=== PATIENT | male | born 1985 | race Caucasian/White ===

== ENCOUNTER 2020-09-21 13:53 | Emergency (ER) | payer MEDICAID, SELFPAY ==
[2020-09-21 14:17] VITALS: BP 132/66; PULSE 72; RESP 18; TEMP 36.7; O2SAT 99; BMI 21.4
[2020-09-21 14:58] LABS: Amphetamine Screen Urine Not Detected (Not Detect); Barbiturates, Urine Not Detected (Not Detect); Benzodiazepines Screen Urine Not Detected (Not Detect); Cannabinoid Screen Urine Not Detected (Not Detect); Cocaine Screen Urine Not Detected (Not Detect); Opiate Screen Urine Not Detected (Not Detect); Phencyclidine Screen Urine Not Detected (Not Detect)
[2020-09-21 15:21] VITALS: BP 155/78; PULSE 67; RESP 14; TEMP 36.4
--- NOTE | 2020-09-21 15:48 | PC.NURSE ---
PT IS CALM AND COOPERATIVE
--- NOTE | 2020-09-21 16:05 | ED_ITS ---
HPI - Psych General Chief Complaint: Psychiatric Symptoms Stated Complaint: CRISIS Time Seen by Provider: 09/21/20 16:04 Source: EMS Mode of arrival: EMS Limitations: no limitations History of Present Illness HPI Narrative: 35-year-old male with history of chronic schizophrenia presenting via EMS from the [facility] with complaint of agitation. Per EMS patient was yelling /hyperverbal security called and patient was brought into the emergency room. Patient otherwise express no suicidal/homicidal ideation. No drug use today. States he just became upset. He offers no other medical complaints. Onset (ago): minute(s) Duration: constant History of same: Yes Relieving factors: none Exacerbating factors: none Associated psychiatric symptoms: none Associated symptoms: denies other symptoms Treatments prior to arrival: none Related Data Allergies Allergy/AdvReac Type Severity Reaction Status Date / Time No Known Allergies Allergy Verified 09/21/20 14:16 [No Known Allergies*] Review of Systems Review of Systems: Constitutional: No Weight loss, No Fever, No Chills, No Night Sweats, No Fatigue, No Malaise ENT/Mouth: No Hearing loss, No Ear Pain, No Nasal Congestion, No Sinus Pain, No Hoarseness, No sore throat, No Rhinorrhea, No Swallowing Difficulty Eyes: No Eye Pain, No Swelling, No Redness, No Foreign Body, No Discharge, No Vision Changes Cardiovascular: No Chest Pain, No SOB, No Dyspnea Respiratory: No Cough, No Sputum, No Wheezing, No Smoke Exposure, No Dyspnea Gastrointestinal: No Nausea, No Vomiting, No Diarrhea, No Constipation, No abdominal Pain, No Hematochezia, No Melena Genitourinary: no irregular bleeding, No Dysuria, No Urinary Frequency, No Hematuria, No Urinary Incontinence, No Urgency, No Flank Pain, No Urinary Flow Changes, No Hesitancy Musculoskeletal: No joint pain, No Myalgias, No Joint Swelling Skin: No Skin Lesions, No rash Neuro: No Weakness, No Numbness, No Paresthesias, No Loss of Consciousness, No Dizziness, No Headache Psych: No Anxiety/Panic, No Depression, No SI/HI/AH/VH, No Social Issues Heme/Lymph: No Bruising, No Bleeding,No Lymphadenopathy Endocrine: No Polyuria, No Polydipsia, No Temperature Intolerance PMFSH Past Medical History Attestation statement: The following information was validated with the patient. Medical History Autism Schizo affective schizophrenia Social History Social History Advance Directives: No Advance Directives Information Provided: No Physical Exam Vital Signs: Vital Signs: Vital Signs Temp Pulse Resp BP Pulse Ox 09/21/20 15:21 97.6 F 67 14 155/78 H 09/21/20 14:17 98.0 F 72 18 132/66 99 Body Mass Index 21.4 Reviewed Const: General: cooperative and healthy appearing; No acute distress or intoxicated appearing Nutritional Appearance: average body habitus Orientation/consciousness: patient oriented x3 HENMT: Head: Yes normal to inspection Ears: hearing grossly normal bilaterally Eyes: General: appearance normal, both eyes and all related structures Visual Pryor: normal visual pryor by confrontation Neck: Neck: Yes normal visual inspection and No tender Thyroid: Thyroid normal Chest: Chest palpation & inspection: normal inspection of the chest Resp: Effort & Inspection: normal respiratory effort Cardio: Jugular venous distension: no JVD Skin: General skin exam: no rashes or lesions noted Neuro: General: patient oriented x3 Extrem: General: Yes normal to inspection Course Course Course Narrative: has been calm cooperative here. No SI or HI. No drug use. Does not appear toxic / under influence. Initially reported in triage may have not been taking medication he tells me that he does. He does not want to speak to anyone in relation to psych. States he feels fine he has had a [place] moment at the mall. He is very forthcoming and good historian. He does have history of similar presentation in the past. At this time I have no concerns/indication to keep him here against his will. He was to be discharged he will be discharged home with his family. Stable for discharge. MDM - Psych Restraints Face to Face Assessment: Face to Face Assessment: Current Situation: After assessment of the patient, a review of the pertinent medical record and a discussion with nursing staff, I feel the patient requires a restrain intervention. Reaction To: [] Medical Condition: [] Behavioral State: [] Continued Need: [] Lab Data Labs: Lab Results 09/21/20 Range/Units 14:28 Urine Opiates Screen Not Detected (Not Detect) Ur Barbiturates Screen Not Detected (Not Detect) Ur Phencyclidine Scrn Not Detected (Not Detect) Ur Amphetamines Screen Not Detected (Not Detect) U Benzodiazepines Scrn Not Detected (Not Detect) Urine Cocaine Screen Not Detected (Not Detect) U Marijuana (THC) Screen Not Detected (Not Detect) Discharge Plan Discharge Clinical Impression: Chronic schizophrenia, Acute anxiety Patient Disposition: Home, Self-Care Instructions: Anxiety (ED), Psychotic Disorder (ED) Additional Instructions: please follow-up with her outpatient provider as discussed Return if any concerns or worsening symptoms Thank you Referrals: Physician,Unknown [Primary Care Provider] - 2 days
== END 2020-09-21 16:32 | disposition home or self-care (01) ==
PROVIDERS: Emergency Provider Emergency Medicine
DX: F20.9 Schizophrenia, unspecified (principal); F41.1 Generalized anxiety disorder; F43.0 Acute stress reaction; F84.0 Autistic disorder; Z79.899 Other long term (current) drug therapy
CPT/HCPCS: 80307; 99284

== ENCOUNTER 2021-03-08 17:19 | Emergency (ER) | payer MEDICAID, SELFPAY ==
[2021-03-08] VITALS (8 sets, daily range): BP systolic 94–141; BP diastolic 49–80; PULSE 64–95; RESP 16–24; O2SAT 95–97; BMI 22.7
--- NOTE | 2021-03-08 19:45 | MHC.RECOVSUP ---
? Reason for consult drug abuse o Current location: ED17H o Identified substance use concern: - Overdose ? Additional information: Patient to impair could not get a straight answer.
[2021-03-08] MEDS: Haloperidol Lactate 5 MG/ML VIAL IM (19:55)
[2021-03-08] MEDS: LORazepam 2 MG/ML VIAL IM (19:56)
--- NOTE | 2021-03-08 21:46 | ED.GENADULT ---
HPI - General Adult General Chief complaint: ETOH/Substance Use Stated complaint: ETOH,SUBSTANCE ABUSE,HALLUCINATIONS Time Seen by Provider: 03/08/21 19:47 Source: patient Mode of arrival: ambulatory Limitations: no limitations History of Present Illness HPI narrative: Patient brought to ED for evaluation due to substance abuse. Patient admitted to taking methamphetamine, fentanyl, heroin, and some alcohol. Patient does not want detox. Patient denies being suicidal homicidal. Patient states he has hyper because he took all those drugs. Patient also admits taking LSD. Related Data Allergies Allergy/AdvReac Type Severity Reaction Status Date / Time No Known Allergies Allergy Verified 09/21/20 14:16 [No Known Allergies*] Review of Systems Review of Systems: Yes all other systems are reviewed and are negative Constitutional: Constitutional: Reports as per HPI and Reports no additional constitutional complaints Eyes: Eyes: Reports as per HPI and Reports no additional eye complaints ENT: Reports system reviewed and no additional complaints, except as documented and Reports as per HPI Cardiovascular: Cardiovascular: Reports as per HPI and Reports no additional cardiovascular complaints Respiratory: Respiratory: Reports as per HPI and Reports no additional respiratory complaints Gastrointestinal: Gastrointestinal: Reports as per HPI and Reports no additional gastrointestinal complaints Genitourinary: Genitourinary: Reports no additional male genitourinary complaints and Reports as per HPI Musculoskeletal: Musculoskeletal: Reports no additional musculoskeletal complaints and Reports as per HPI Integumentary/Breasts: Skin/Breast: Reports system reviewed and no additional complaints, except as docu and Reports as per HPI Neurologic: Reports system reviewed and no additional complaints, except as documented and Reports as per HPI Psychiatric: Psychiatric: Reports no additional psychiatric complaints and Reports as per HPI [facility] Past Medical History Medical History Autism Schizo affective schizophrenia Social History Social History Advance Directives: No Advance Directives Information Provided: Yes Physical Exam Vital Signs: Vital Signs: Last Vital Signs Pulse 56 03/09/21 01:03 Resp 16 03/09/21 01:03 BP 110/74 03/09/21 01:03 Pulse Ox 97 03/09/21 01:03 Body Mass Index 22.7 Const: General: cooperative, healthy appearing, comfortable, no acute distress, well developed, alert, awake and intoxicated appearing Orientation/consciousness: patient oriented x3 HENMT: Head: Yes normal to inspection, Yes No palpable skull fracture present, Yes normocephalic, Yes atraumatic, No Parson's sign, No contusion, No cranial bruits, No hematoma, No laceration, No occipital foramen tenderness, No palpable skull fracture, No raccoon eyes, No scalp lesion, No scalp tenderness, No Temporal artery tenderness present and No periorbital ecchymosis Eyes: General: appearance normal, both eyes and all related structures Neck: Neck: Yes normal visual inspection, Yes full ROM, Yes no lymphadenopathy, Yes no meningeal signs, Yes trachea midline, Yes supple and No tender Chest: Chest palpation & inspection: normal inspection of the chest and normal palpation of entire chest wall Resp: Effort & Inspection: normal respiratory effort and able to speak in complete sentences Auscultation: clear to auscultation bilaterally Cardio: Jugular venous distension: no JVD Heart sounds: S1 normal heart sound present and S2 normal heart sound present GI: Inspection: Yes normal to inspection and No abdominal wall ecchymosis Palpation (GI): Soft to palpation, not firm, nontender, no guarding and not rigid : General: No CVA tenderness and Yes no CVA tenderness Back/Spine/Pelvis: Back: no CVA tenderness, No CVA tenderness and No back tenderness Skin: General skin exam: no rashes or lesions noted and elasticity normal Neuro: General: patient oriented x3 and no meningeal signs Cranial nerves: Yes CN's II-XII intact bilaterally Extrem: General: Yes normal to inspection and Yes full ROM Psych: Appearance: grossly normal, well kempt and not disheveled Course Course Course Narrative: Patient does not want detox. Patient making loud random statements. Reevaluation(s) Reevaluation #1: Patient became disruptive, aggresive, and stating want to be discharged. Patient still on the influence of drugs. Patient given Ativan/Haldol as medical restraints to prevent him from hurting others and himself. Patient due to substance abuse. Patient does not need psych evaluation presently. Will re-evaluate patient Reevaluation #2: Patient now alert oriented x3. Patient ready for discharge. Patient does not want detox. Patient is not suicidal or homicidal. Medical Decision Making MDM Narrative Medical decision making narrative: poly substance abuse Discharge Plan Discharge Clinical Impression: Active substance abuse Patient Disposition: Home, Self-Care Instructions: Polysubstance Abuse (ED) Additional Instructions: Return to ED for any chest pain, shortness of breath, coughing up blood, fever, chills, suicidal/homicidal ideation, auditory/visual hallucinations, or any other concerning symptoms. Please follow-up with the PCP Print Language: Urdu
--- NOTE | 2021-03-08 21:55 | PC.NURSE ---
pt has been resting quietly asleep. skin pink warm and dry no s/s of resp distress.
[2021-03-09] VITALS: RESP 16; O2SAT 97
[2021-03-09 01:03] VITALS: BP 110/74; PULSE 56; RESP 16; O2SAT 97
--- NOTE | 2021-03-09 01:04 | PC.NURSE ---
pt sleepy not ready for discharge at this time. pt is starting to wake slowly. skin pink warm and dry. no s/s of resp distress.
[2021-03-09 02:00] VITALS: RESP 16; O2SAT 97
== END 2021-03-09 03:13 | disposition home or self-care (01) ==
PROVIDERS: Emergency Provider Emergency Medicine; PCP Physician Assistant
DX: F11.10 Opioid abuse, uncomplicated (principal); F15.10 Other stimulant abuse, uncomplicated; F16.10 Hallucinogen abuse, uncomplicated; F10.10 Alcohol abuse, uncomplicated; Y90.9 Presence of alcohol in blood, level not specified; R45.6 Violent behavior
CPT/HCPCS: 96372; 99284; 99285; J2060

== ENCOUNTER 2021-04-14 14:34 | Emergency (ER) | payer MEDICAID, SELFPAY ==
[2021-04-14 15:01] VITALS: BP 93/53; PULSE 75; RESP 20; TEMP 5445.5; TEMP 9834; O2SAT 98; BMI 22.9
--- NOTE | 2021-04-14 15:10 | PC.NURSE ---
Patient changed into hospital attire by security and belongings confiscated and locked up per protocol- pt 1:1 sitter
--- NOTE | 2021-04-14 15:16 | ECG_ITS ---
Test Reason : OVERDOSE Blood Pressure : / mmHG Vent. Rate : 073 BPM Atrial Rate : 073 BPM P-R Int : 164 ms QRS Dur : 106 ms QT Int : 358 ms P-R-T Axes : 063 -22 047 degrees QTc Int : 394 ms Normal sinus rhythm Normal ECG No previous ECGs available Referred By: Mabel Hopkins Electronically Signed By:PARKER LANDAVERDE MD
[2021-04-14 15:39] LABS: MANUAL DIFF FLAG NO
[2021-04-14 15:42] LABS: Basophils Percent Auto 0.3 % (0-2); Eosinophils Absolute Auto 0.1 X10*3/uL (0.0-0.4); Eosinophils Percent Auto 0.6 % (0-4); Hematocrit 45.1 % (42-52); Hemoglobin 15.1 g/dl (14.0-18.0); Imm Gran Abs Auto 0.04 X10*3/uL (0.00-0.03); Imm Gran Pct Auto 0.3 % (0.0-0.4); Lymphocytes Absolute Auto 1.8 X10*3/uL (1.2-4.9); Lymphocytes Percent Auto 15.5 % (20-40); Mean Corpuscular HGB Conc 33.5 g/dl (31.0-36.0); Mean Corpuscular Hemoglobin 32.1 pg (27.0-33.0); Mean Corpuscular Volume 95.8 fL (80-98); Mean Platelet Volume 9.7 fL (9.4-12.4); Monocytes Absolute Auto 0.9 X10*3/uL (0.1-1.2); Monocytes Percent Auto 7.2 % (2-11); Neutrophils Absolute Auto 8.9 X10*3/uL (2.0-8.3); Neutrophils Percent Auto 76.1 % (45-73); Platelet Count 224 X10*3/uL (160-400); Red Blood Count 4.71 X10*6/uL (4.60-5.80); Red Cell Distribution Width 11.9 % (11.0-16.0); White Blood Count 11.7 X10*3/uL (4.8-10.8)
[2021-04-14 15:45] LABS: INTERNATIONAL NORM RATIO 1.2 (0.9-1.1); Prothrombin Time 13.8 SEC (10.8-13.0)
--- NOTE | 2021-04-14 16:00 | ED.OVERDOSE ---
HPI - Overdose General Chief Complaint: Overdose Stated Complaint: JITTERY FROM [place] PER EMS Time Seen by Provider: 04/14/21 14:53 Source: patient and EMS Mode of arrival: EMS Limitations: no limitations History of Present Illness HPI Narrative: 35-year-old male with a past medical history of autism and schizoaffective schizophrenia presenting to the ED via EMS after taking meth/heroin/fentanyl and marijuana reports that it made him feel very jittery and he was doing a lot of irrational stuff therefore he came here for further evaluation and treatment. Patient denies any SI/HI/auditory visualizations thoughts of self-injury. He is interested in detox. Reports he is currently homeless at this time. Related Data Allergies Allergy/AdvReac Type Severity Reaction Status Date / Time No Known Allergies Allergy Verified 09/21/20 14:16 [No Known Allergies*] Review of Systems Review of Systems: Constitutional : No Fever, No Chills ENT/Mouth : No Ear Pain, No Nasal Congestion, No sore throat Eyes: No Eye Pain, No Swelling, No Redness Cardiovascular : No Chest Pain, No SOB Respiratory : No Cough, No Sputum, No Dyspnea Gastrointestinal : No ingestions, No Nausea, No Vomiting, No Diarrhea, No Hematochezia, No Melena Genitourinary : No Dysuria, No Urinary Frequency, No Hematuria Musculoskeletal : No Myalgias Skin : No Skin Lesions, No rash Neuro : No Weakness, No Numbness, No Paresthesias, No Dizziness, No Headache Psych : Positive substance abuse requesting detox, No Anxiety, No Depression, No SI/HI, No AVH, No thoughts of self injury Heme/Lymph: No Lymphadenopathy Endocrine : No Polyuria, No Polydipsia Yes all other systems are reviewed and are negative [facility] Past Medical History Attestation statement: The following information was validated with the patient. Medical History Autism Schizo affective schizophrenia Social History Social History Alcohol intake: unknown Smoking Status: Never smoker Use of substances other than those prescribed or required for medical reasons: Yes Substance Use Type: Heroin, Inhalants, Marijuana and Opiates Substance Use Frequency: Chronic Longstanding Last Used Substance: Just Prior to Admission Advance Directives: No Advance Directives Information Provided: Yes Physical Exam Vital Signs: Vital Signs: Last Vital Signs Temp 9834 F H 04/14/21 15:01 Pulse 75 04/14/21 15: Resp 20 04/14/21 15:01 BP 93/53 L 04/14/21 15:01 Pulse Ox 98 04/14/21 15:01 Body Mass Index 22.9 vital signs have been reviewed as normal and appeared to be correct. Blood pressure normal. Heart rate normal. Respiration rate normal. Temperature normal. Oxygen saturation normal. Appearance: Alert. Oriented X3. No acute distress. Head: Normal external exam. Normocephalic. Atraumatic. No Parson signs noted. No raccoon eyes noted Eyes: PERRLA. EOMI. Conjunctiva and sclera normal. Eyelids normal. ENT: EAC normal. TM's Normal. Pharynx normal. Uvula midline. Moist mucous membranes. No trismus noted. No drooling noted. No muffled voice noted. Neck: Normal inspection. Neck supple. FROM. No adenopathy. Thyroid Normal. No meningeal signs. No neck mass noted. CVS: Normal heart rate and rhythm. Heart sound normal. No murmurs noted. Pulses normal throughout. Respiratory: No respiratory distress. Painless inspiration. Breath sounds normal. No wheezes/rales/rhonchi noted. Chest nontender. No accessory muscle usage noted or decreased air movement noted. Abdomen: Soft and nontender. Bowel sounds normal in all 4 quadrants. No distention noted. No organomegaly noted. No visible injury noted. Back: No CVA tenderness. Full range of motion noted. Skin: Skin warm and dry. Normal skin color. Normal skin turgor. No rashes/lesions/lacerations noted. Extremities: No lower extremity edema. Extremities exhibit normal range of motion. Extremities nontender. Neuro: Oriented X 3. No motor deficit. No sensory deficit. Reflexes normal. Psych: Appearance grossly normal, disheveled, mental status normal, speech and movement normal, speech clear, patient appears very sad and anxious along with depressed. Is cooperative. Normal thought process. Normal thought content. Normal good insight. Judgment good. Course Course Course Narrative: 5pm - 35-year-old male with a past medical history of autism and schizoaffective schizophrenia presenting to the ED via EMS after taking meth/heroin/fentanyl and marijuana reports that it made him feel very jittery and he was doing a lot of irrational stuff therefore he came here for further evaluation and treatment. Patient denies any SI/HI/auditory visualizations thoughts of self-injury. He is interested in detox. Reports he is currently homeless at this time. - labs obtained and patient when elevated white blood cell count 63177. BUN 23. Otherwise all other labs are within normal limits. UA within normal limits no evidence of UTI. Patient positive for cocaine negative for all other drugs. - therefore physician observation was started at this time. Jagjit is working on rehab/detox with the patient he is agreeable. Will continue to monitor until then. MDM - Overdose Medical Records Attestation: I reviewed the patient's medical records. Lab Data Attestation: I reviewed the patient's lab results. Result diagrams: 04/14/21 15:33 04/14/21 15:33 Labs: Lab Results 04/14/21 04/14/21 04/14/21 Range/Units 15:32 15:33 15:33 WBC 11.7 H (4.8-10.8) X10*3/uL RBC 4.71 (4.60-5.80) X10*6/uL Hgb 15.1 (14.0-18.0) g/dl Hct 45.1 (42-52) % MCV 95.8 (80-98) fL MCH 32.1 (27.0-33.0) pg MCHC 33.5 (31.0-36.0) g/dl RDW 11.9 (11.0-16.0) % Plt Count 224 (160-400) X10*3/uL MPV 9.7 (9.4-12.4) fL Immature Gran % (Auto) 0.3 (0.0-0.4) % Neut % (Auto) 76.1 H (45-73) % Lymph % (Auto) 15.5 L (20-40) % [place] % (Auto) 7.2 (2-11) % Eos % (Auto) 0.6 (0-4) % Baso % (Auto) 0.3 (0-2) % Lymph # (Auto) 1.8 (1.2-4.9) X10*3/uL [place] # (Auto) 0.9 (0.1-1.2) X10*3/uL Eos # (Auto) 0.1 (0.0-0.4) X10*3/uL Baso # (Auto) 0.0 (0.0-0.2) X10*3/uL Abs Immat Gran (auto) 0.04 H (0.00-0.03) X10*3/uL Absolute Neuts (auto) 8.9 H (2.0-8.3) X10*3/uL Absolute Nucleated RBC 0.000 (0.0-0.012) X10*3/uL Nucleated RBC % (auto) 0.0 (0.0-0.2) /100WBC PT 13.8 H (10.8-13.0) SEC INR 1.2 H (0.9-1.1) Sodium (135-145) mmol/L Potassium (3.3-5.1) mmol/L Chloride (96-108) mmol/L Carbon Dioxide (22-29) mmol/L Anion Gap (12-20) BUN (9-16) mg/dL Creatinine (0.5-1.4) mg/dL Estim Creat Clear Calc Estimated GFR Random Glucose (60-115) mg/dL Calcium (8.4-10.2) mg/dL Magnesium 2.0 (1.6-2.6) mg/dL Total Bilirubin (0.0-1.0) mg/dL AST (5-37) U/L ALT (0-40) U/L Alkaline Phosphatase (39-117) U/L Total Protein (6.5-8.0) g/dL Albumin (3.5-5.0) g/dL Urine Color Urine Appearance Urine pH (5.0-8.0) Ur Specific [place] (1.005-1.025) Urine Protein (NEG-TRACE) MG/DL Urine Glucose (UA) (NEG) MG/DL Urine Ketones (NEG) MG/DL Urine Blood (NEG) Urine Nitrite (NEG) Ur Leukocyte Esterase (NEG) Urine Opiates Screen (Not Detect) Ur Barbiturates Screen (Not Detect) Ur Phencyclidine Scrn (Not Detect) Ur Amphetamines Screen (Not Detect) U Benzodiazepines Scrn (Not Detect) Urine Cocaine Screen (Not Detect) U Marijuana (THC) Screen (Not Detect) 04/14/21 04/14/21 04/14/21 Range/Units 15:33 16:03 16:03 WBC (4.8-10.8) X10*3/uL RBC (4.60-5.80) X10*6/uL Hgb (14.0-18.0) g/dl Hct (42-52) % MCV (80-98) fL MCH (27.0-33.0) pg MCHC (31.0-36.0) g/dl RDW (11.0-16.0) % Plt Count (160-400) X10*3/uL MPV (9.4-12.4) fL Immature Gran % (Auto) (0.0-0.4) % Neut % (Auto) (45-73) % Lymph % (Auto) (20-40) % [place] % (Auto) (2-11) % Eos % (Auto) (0-4) % Baso % (Auto) (0-2) % Lymph # (Auto) (1.2-4.9) X10*3/uL [place] # (Auto) (0.1-1.2) X10*3/uL Eos # (Auto) (0.0-0.4) X10*3/uL Baso # (Auto) (0.0-0.2) X10*3/uL Abs Immat Gran (auto) (0.00-0.03) X10*3/uL Absolute Neuts (auto) (2.0-8.3) X10*3/uL Absolute Nucleated RBC (0.0-0.012) X10*3/uL Nucleated RBC % (auto) (0.0-0.2) /100WBC PT (10.8-13.0) SEC INR (0.9-1.1) Sodium 141 (135-145) mmol/L Potassium 4.0 (3.3-5.1) mmol/L Chloride 108 (96-108) mmol/L Carbon Dioxide 27 (22-29) mmol/L Anion Gap 10 L (12-20) BUN 23 H (9-16) mg/dL Creatinine 0.98 (0.5-1.4) mg/dL Estim Creat Clear Calc 107.9 Estimated GFR > 60 Random Glucose 99 (60-115) mg/dL Calcium 9.3 (8.4-10.2) mg/dL Magnesium (1.6-2.6) mg/dL Total Bilirubin 0.5 (0.0-1.0) mg/dL AST 17 (5-37) U/L ALT 13 (0-40) U/L Alkaline Phosphatase 45 (39-117) U/L Total Protein 6.8 (6.5-8.0) g/dL Albumin 4.3 (3.5-5.0) g/dL Urine Color YELLOW Urine Appearance CLEAR Urine pH 6.0 (5.0-8.0) Ur Specific [place] >= 1.030 H (1.005-1.025) Urine Protein NEG (NEG-TRACE) MG/DL Urine Glucose (UA) NEG (NEG) MG/DL Urine Ketones NEG (NEG) MG/DL Urine Blood NEG (NEG) Urine Nitrite NEG (NEG) Ur Leukocyte Esterase NEG (NEG) Urine Opiates Screen Not Detected (Not Detect) Ur Barbiturates Screen Not Detected (Not Detect) Ur Phencyclidine Scrn Not Detected (Not Detect) Ur Amphetamines Screen Not Detected (Not Detect) U Benzodiazepines Scrn Not Detected (Not Detect) Urine Cocaine Screen POSITIVE H (Not Detect) U Marijuana (THC) Screen Not Detected (Not Detect) ECG Data Attestation: I personally reviewed and interpreted this ECG as follows: ECG interpretation date: 04/14/21 ECG interpretation time: 15:42 Interpretation: Normal sinus rhythm with ventricular rate of 73 with a normal SC interval normal QRS duration normal QT/QTC interval. No acute ischemic changes are noted. Discharge Plan Discharge Clinical Impression: Substance abuse
[2021-04-14 16:10] LABS: Alanine Aminotransferase 13 U/L (0-40); Albumin Level 4.3 g/dL (3.5-5.0); Alkaline Phosphatase 45 U/L (39-117); Anion Gap 10 (12-20); Aspartate Amino Transferase 17 U/L (5-37); Bilirubin Total 0.5 mg/dL (0.0-1.0); Blood Urea Nitrogen 23 mg/dL (9-16); Calcium 9.3 mg/dL (8.4-10.2); Carbon Dioxide 27 mmol/L (22-29); Chloride 108 mmol/L (96-108); Creatinine Clr Calc Pharmacy 107.9; Estimated Glomerular Filt Rate > 60; Glucose Random 99 mg/dL (60-115); Sodium 141 mmol/L (135-145); Total Protein 6.8 g/dL (6.5-8.0)
[2021-04-14 16:14] LABS: Glucose Urine UA NEG (NEG); Leukocyte Esterase Urine NEG (NEG); Nitrite Urine NEG (NEG); Specific Gravity - Urine >= 1.030 (1.005-1.025); Urine Blood NEG (NEG); Urine Ketones NEG (NEG); Urine Protein NEG (NEG-TRACE)
[2021-04-14 16:15] LABS: Appearance Urine CLEAR; Color Urine YELLOW
--- NOTE | 2021-04-14 16:36 | MHC.RECOVSUP ---
Recovery Support note: Patient is a 35 year old Chadian speaking male who presented to [facility] ED via EMS after using substances. Patient presented as under the influence and it was difficult to engage with patient at times. Patient reports using fentanyl and meth. Patient expressed a desire to stop using substances, stating that he is interested in going to detox for treatment. Patient is willing to go anywhere as long as the hospital can assist with transportation. Patient will be referred to ATS facilities.
[2021-04-14 16:44] LABS: Amphetamine Screen Urine Not Detected (Not Detect); Barbiturates, Urine Not Detected (Not Detect); Benzodiazepines Screen Urine Not Detected (Not Detect); Cannabinoid Screen Urine Not Detected (Not Detect); Cocaine Screen Urine POSITIVE (Not Detect); Opiate Screen Urine Not Detected (Not Detect); Phencyclidine Screen Urine Not Detected (Not Detect)
[2021-04-14 17:14] LABS: Ethanol < 10 mg/dL
[2021-04-14 17:25] LABS: Influenza A PCR NEGATIVE (Negative); Influenza B PCR NEGATIVE (Negative); Resp Syncy Virus RNA Qual PCR NEGATIVE (Negative); SARS COV2 PCR INHOUSE NEGATIVE (Negative)
--- NOTE | 2021-04-14 17:39 | PC.NURSE ---
REcvotyrell reading coach at bedside
--- NOTE | 2021-04-14 18:51 | MHC.RECOVSUP ---
I followed up with [facility] and was told to call at 7am.. I spoke with said patient and explain what [facility] had advised me.. Patient decided that he would like to leave...I spoke with doctor in charge and related patient request.
== END 2021-04-14 19:36 | disposition home or self-care (01) ==
PROVIDERS: Physician Assistant Medical; Emergency Provider Emergency Medicine Emergency Medical Services; PCP Physician Assistant
DX: F19.10 Other psychoactive substance abuse, uncomplicated (principal); F11.10 Opioid abuse, uncomplicated; Z20.822 Contact with and (suspected) exposure to COVID-19; F20.9 Schizophrenia, unspecified; F84.0 Autistic disorder
CPT/HCPCS: 0241U; 36415; 80053; 80307; 80320; 81003; 83735; 85025; 85610; 93005; 99284; 99285

== ENCOUNTER 2021-06-14 01:15 | Emergency (ER) | payer MEDICAID, SELFPAY ==
[2021-06-14 01:25] VITALS: BP 136/78; PULSE 73; RESP 18; TEMP 36.9; O2SAT 99; BMI 20.8
--- NOTE | 2021-06-14 01:43 | ED_ITS ---
HPI - Psych General Chief Complaint: Psychiatric Symptoms Stated Complaint: si Time Seen by Provider: 06/14/21 01:41 Source: patient Mode of arrival: EMS History of Present Illness HPI Narrative: 35-year-old male with history of schizoaffect kia/schizophrenia/autism brought in by EMS after he states that he was [place] [address] and called the police department for help stating that he was hungry and at that time reported being suicidal with a plan to run into traffic and get killed. Upon initiating conversation with the patient he asks if he should provide me with ?the code?. He then proceeds to tell me ?888?. Patient then states that sometimes he gets hungry and eats dirt and feels that since soiled gives rise to everything that it is good for him. At this time patient denies feeling suicidal, hearing voices. Related Data Home Medications Medication Instructions Recorded Confirmed divalproex 4 tab PO BEDTIME 06/14/21 06/14/21 folic acid 1 tab PO DAILY 06/14/21 06/14/21 [id number]-calcium-mins 1 tab PO DAILY 06/14/21 06/14/21 [Thera-M] olanzapine 1 tab PO BEDTIME 06/14/21 06/14/21 thiamine HCl (vitamin B1) 1 tab PO DAILY 06/14/21 06/14/21 Allergies Allergy/AdvReac Type Severity Reaction Status Date / Time No Known Allergies Allergy Verified 09/21/20 14:16 [No Known Allergies*] Review of Systems Review of Systems: Pertinent positives and negatives as stated in HPI 10 point review of systems is otherwise negative. [facility] Past Medical History Source: nursing notes reviewed Medical History Autism Schizo affective schizophrenia Social History Social History Alcohol intake: unknown Substance Use Type: Heroin, Inhalants, Marijuana and Opiates Advance Directives: No Advance Directives Information Provided: No Physical Exam 2 Vital Signs: Vital Signs: Last Vital Signs Temp 98.4 F 06/14/21 01:25 Pulse 73 06/14/21 01:25 Resp 18 06/14/21 01:25 BP 136/78 06/14/21 01:25 Pulse Ox 99 07/20/21 01:25 Body Mass Index 20.8 VITAL SIGNS: Reviewed. GENERAL: Well developed, well nourished, in no acute distress. HEAD: Normocephalic/atraumatic EYES: PERRLA, EOMI OROPHARYNX: no oral lesions noted, posterior pharynx clear LUNGS: Normal breath sounds. No adventitious sounds or accessory muscle use. SpO2<99> CARDIOVASCULAR: Regular rate and rhythm without noted murmurs ABDOMEN: Soft, non-tender, non-distended with bowel sounds. SKIN: Inspection of the skin reveals no rashes NEUROLOGIC: Alert and oriented x 4. PSYCH: Normal affect, mild delusion regarding soil Course Course Course Narrative: This is a 35-year-old male with history and clinical presentation consistent with mild psychosis regarding soil and ?codes? but does not appear to be suicidal at this time. Will obtain behavioral evaluation. Signed out to Dr. Singleton [facility] - Psych Lab Data Labs: Lab Results 06/14/21 06/14/21 Range/Units 01:47 04:48 Urine Opiates Screen Not Detected (Not Detect) Ur Barbiturates Screen Not Detected (Not Detect) Ur Phencyclidine Scrn Not Detected (Not Detect) Ur Amphetamines Screen Not Detected (Not Detect) U Benzodiazepines Scrn Not Detected (Not Detect) Urine Cocaine Screen POSITIVE H (Not Detect) U Marijuana (THC) Screen Not Detected (Not Detect) COVID-19 (PAMELLA) Negative (Negative) COVID-19 Clin Com See Note Discharge Plan Discharge Clinical Impression: Schizo affective schizophrenia, Autism Instructions: Schizophrenia (ED), Schizoaffective Disorder (ED), Autism Spectrum Disorder (DC) Additional Instructions: Return to the ER for acute worsening of symptoms and continue to take your medications as prescribed. Prescriptions: No Action thiamine HCl (vitamin B1) 100 mg tablet 1 tab PO DAILY RF: 0 divalproex 500 mg tablet extended release 24 hr 4 tab PO BEDTIME RF: 0 folic acid 1 mg tablet 1 tab PO DAILY RF: 0 olanzapine 15 mg tablet 1 tab PO BEDTIME RF: 0 Thera-M 9 mg iron-400 mcg tablet 1 tab PO DAILY RF: 0 Referrals: Bhargav Cervantes PA [Primary Care Provider] - 2 days
[2021-06-14 02:41] LABS: COVID-19 Test Negative (Negative); IDNOW Serial# 9DD0AD1C
[2021-06-14 05:17] LABS: Amphetamine Screen Urine Not Detected (Not Detect); Barbiturates, Urine Not Detected (Not Detect); Benzodiazepines Screen Urine Not Detected (Not Detect); Cannabinoid Screen Urine Not Detected (Not Detect); Cocaine Screen Urine POSITIVE (Not Detect); Opiate Screen Urine Not Detected (Not Detect); Phencyclidine Screen Urine Not Detected (Not Detect)
--- NOTE | 2021-06-14 06:18 | PC.NURSE ---
Patient slept briefly, delusional reporting eating soil and sand, ate well, VSS, Utox positive for cocaine, [facility] referral completed via smart-sheet, [place] overnight N coffee shop manager called/confirmed receipt of referral, patient will be seen in the morning, patient is currently off his medication, denied SI/HI/AVH, will continue to monitor.
[2021-06-14 08:14] VITALS: BP 124/60; PULSE 69; RESP 17; TEMP 36.8; O2SAT 98
--- NOTE | 2021-06-14 10:27 | PC.NURSE ---
pt ambulating in common space, calm,cooperative. makes needs known. watching tv. in behavioral control at this time.
--- NOTE | 2021-06-14 10:33 | MHC.CARE ---
Pt presented with flat mood and affect. Pt was shaking back and forth. This writer technical publications met with pt who denied SI, HI, AH/VH. Pt reported he made a mistake and decided to walk to [place] last night. Reported he ran out of food and called 911 with a phone he found on the floor and needed fluids and rest. Pt reported he was feeling great but coming down from sativa. Pt reported he has not taken meds because they don't help. However, reported he was on a wait list to see a psychiatrist. Pt was positive for cocaine and at first was unclear and guarded about his substance use. When redirected, pt reported that he drank water with cocaine in it from a person he met on the street. pt was unclear about substance use but reported difficulty with substances at times. [phone] (paren't phone number)- This writer technical publications than spoke with parents who reported chronic mental health struggles and reported that they felt safe to take him home. They expressed frustration with pt's chronic inpatient hospitalizations and treatment. Reported that they are working on getting set up with services through [facility]. Discussed plan with discharging pt and parents reported that they would be coming to pick him up.
== END 2021-06-14 11:23 | disposition home or self-care (01) ==
PROVIDERS: Student in an Organized Health Care Education/Training Program; Emergency Provider Emergency Medicine; PCP Physician Assistant
DX: F25.9 Schizoaffective disorder, unspecified (principal); F84.0 Autistic disorder; Z79.899 Other long term (current) drug therapy; Z20.822 Contact with and (suspected) exposure to COVID-19
CPT/HCPCS: 36415; 80307; 87635; 99284

== ENCOUNTER 2023-12-07 10:48 | Outpatient (REF) | payer OTHER, SELFPAY ==
--- NOTE | ~2023-12-07 | XR_ITS ---
Examination: Pre-MRI evaluation. CLINICAL INDICATION: Pre-MRI evaluation. Poor historian. COMPARISON: None. TECHNIQUE: Standard skull 2 views. Chest one view and abdomen one view. FINDINGS: Skull: AP and lateral views of skull reveals no visible radiopaque foreign body in the orbits or the skull. The calvarium is unremarkable. The paranasal sinuses are well-aerated and clear. No scalp soft tissue abnormality seen. CHEST: The lungs are well-expanded and clear acute process. Heart size and pulmonary vascularity is normal. No radiopaque foreign body seen. No gross bony abnormality. ABDOMEN: A single view of the abdomen reveals multiple simple small to large radiopaque metallic bodies in the right lower quadrant likely in the terminal ileum or ileocecal junction. The bowel gas pattern is nonspecific.. There is scattered stool in the left colon. There are surgical marce in the pelvis. No organomegaly. No gross bony abnormality. XR/XR pre mri screening IMPRESSION: Multiple small to large radiopaque metallic foreign body seen in the right lower quadrant of the abdomen likely in the ileocecal junction or terminal ileum. Mild constipation. No radiopaque foreign body seen in the skull or the chest. The lungs are clear. The paranasal sinuses are well-aerated and clear.
== END 2023-12-07 10:49 | disposition home or self-care (01) ==
LOC: HO.MRI 10:48
PROVIDERS: Visit Provider Psychiatry & Neurology Psychiatry
DX: Z13.89 Encounter for screening for other disorder (principal)

== ENCOUNTER 2023-12-07 12:03 | Emergency (ER) | payer OTHER, SELFPAY ==
--- NOTE | ~2023-12-07 | CT_ITS ---
EXAMINATION: CT ABDOMEN AND PELVIS WITHOUT CONTRAST CLINICAL INFORMATION: Foreign body in abdomen on x-ray. COMPARISON: None available. TECHNIQUE: Multidetector volumetric exact location whether was performed from the superior aspect of the liver through the pubic symphysis. It lies This CT examination was performed using dose optimization techniques as appropriate, variously including the following: *Automated exposure control *Adjustment of mA and/or kV according to patient size (this includes techniques or standardized protocols for targeted exams where dose is matched to indication/reason for exam; i.e. extremities or head) *Use of iterative reconstruction technique DLP: 431 mGy-cm FINDINGS: LUNG BASES: The lung bases are clear. Heart size is normal. LIVER, GALLBLADDER, AND BILIARY TREE: The liver is normal in size, shape, and attenuation. No focal hepatic lesion or biliary ductal dilatation is present. The gallbladder is unremarkable with no evidence of radiopaque gallstones, gallbladder wall thickening, or obvious pericholecystic inflammatory changes. PANCREAS: Unremarkable. SPLEEN: Unremarkable. ADRENAL GLANDS: Unremarkable. KIDNEYS AND URETERS: The kidneys are normal in size, shape, and attenuation. No hydronephrosis, hydroureter, or calculi seen. No perinephric stranding. BLADDER: Unremarkable. GASTROINTESTINAL TRACT: There are multiple large radiopaque metallic foreign body seen in the right abdomen and appears these are at the IC junction or in the terminal ileum. Exact location is hard to find due to significant hardware artifact surrounding the metal. The small bowel loops are nondilated. There is a large amount of stool in the colon likely severe constipation. No free air or free fluid seen. ABDOMINAL WALL: No significant hernia is appreciated. LYMPH NODES: Normal. VASCULAR: Unremarkable. PELVIC VISCERA: Unremarkable. OSSEOUS STRUCTURES: Unremarkable. CT/CT abdomen pelvis wo IV con IMPRESSION: Multiple large radiopaque metallic foreign body seen in the right lower quadrant. Exact location is indeterminate due to significant artifact from the metal restricts location evaluation. There is moderate to significant constipation. Fleischner guidelines were followed.
--- NOTE | 2023-12-07 12:25 | ED.GENADULT ---
HPI - General Adult General Chief complaint: Recheck/Abnormal Lab/Rx Stated complaint: has metal in abd Time Seen by Provider: 12/07/23 16:57 Source: patient and other Mode of arrival: ambulatory History of Present Illness HPI narrative: This is a 38-year-old male who arrives after going for an MRI to assess for compatibility for ECT and is currently residing in a psychiatric facility. The MRI staff obtained x-rays to determine any metal and noted on the KUB that there was a metallic object in the patient stated that he had swallowed a computer processor. On further discussion with the staff who is at bedside they state that approximately 1 month ago they had to remove a plant from his room because he was eating the soil. Patient denies any nausea, vomiting, fever, chills, difficulty with defecation or urinary symptoms. Related Data Home Medications Medication Instructions Recorded Confirmed divalproex 500 mg tablet,extended 4 tab PO BEDTIME 06/14/21 06/14/21 release 24 hr folic acid 1 mg tablet 1 tab PO DAILY 06/14/21 06/14/21 multivitamin-iron 9 mg-folic acid 1 tab PO DAILY 06/14/21 06/14/21 400 mcg-calcium and minerals tablet (Thera-M) olanzapine 15 mg tablet 1 tab PO BEDTIME 06/14/21 06/14/21 thiamine HCl (vitamin B1) 100 mg 1 tab PO DAILY 06/14/21 06/14/21 tablet Allergies Allergy/AdvReac Type Severity Reaction Status Date / Time No Known Allergies Allergy Verified 09/21/20 14:16 [No Known Allergies*] Review of Systems Review of Systems: Pertinent positives and negatives as stated in the HPI [facility] Past Medical History Source: nursing notes reviewed Onset Date is defined in the Problem List Problems that require an onset date and time if occurred within 24 hrs of arrival to the ED Aortic Dissection and Rupture; Neurologic impairment; Cardiopulmonary Arrest; Endotracheal Intubation; Insertion or Replacement of Mechanical Circulatory Assist Device Medical History Autism Schizo affective schizophrenia Social History Social History Alcohol intake: unknown Patient Tobacco Use Status: Tobacco use Unknown Substance Use Type: Heroin, Inhalants, Marijuana and Opiates Advance Directives: No Advance Directives Information Provided: No Physical Exam ED Vital Signs: Vital Signs - 24 hr 12/07/23 12:26 12/07/23 18:56 Temperature 98 F 97.5 F Pulse Rate 87 74 Respiratory Rate 16 16 Blood Pressure 132/78 121/82 Pulse Oximetry 93 97 Oxygen Delivery Method Room Air Room Air BMI result Body Mass Index 23.2 VITAL SIGNS: Reviewed. GENERAL: Well developed, well nourished, in no acute distress. HEAD: Normocephalic/atraumatic EYES: PERRLA, EOMI EARS: Ext canals without abnormality NOSE: Nares patent bilateral OROPHARYNX: no oral lesions noted, posterior pharynx clear NECK: Supple, no adenopathy LUNGS: Normal breath sounds. No adventitious sounds or accessory muscle use. SpO2<> CARDIOVASCULAR: Regular rate and rhythm without noted murmurs ABDOMEN: Soft, non-tender, non-distended with bowel sounds. MUSCULOSKELETAL: No tenderness, deformities, or effusions noted on gross inspection. EXTREMITIES: No cyanosis, clubbing or edema. SKIN: Inspection of the skin reveals no rashes NEUROLOGIC: Alert and oriented x 4. Strength and sensation to light touch were grossly intact x 4, cranial nerves 2-12 are grossly intact. Course Course Course Narrative: This is an RME: Additional HPI, ROS, PE not included below will be deferred to primary provider. Patient is a 38-year-old male who presents to the emergency department staff, Patient from [facility]. Patient had presented to have initial MRI of the brain due to confusion and preoccupied thought process. During screening when asked if he has any metal in his body he reported to the radiology screening that he had swallowed computer processor 1 year ago. At this point in XR was obtained which did confirm a metal foreign body to the abdomen, is unclear when this ingestion may have occurred. Plan: labs, U/A, CT AP Medical Decision Making Medical Decision Making MDM Narrative: 38-year-old male with history and clinical presentation of suspected soil ingestion, he is otherwise completely asymptomatic. I reviewed all investigations and hematologic indices are negative for leukocytosis/left shift/anemia/thrombocytopenia. Chemistry indices do not demonstrate an MICK or electrolyte/liver enzyme derangements. Urinalysis is negative for UTI/hematuria. Viral testing is negative for COVID-19/influenza. CT scan demonstrates multiple large radio opaque metallic foreign body seen in the right lower quadrant. Patient has no pain on clinical exam in either he nor the staff worker at bedside report any symptomatic issues. 1719: I discussed case with General surgery, Dr. Pendleton, who recommends outpatient follow-up but unknown substance will likely pass. Patient is otherwise discharged in stable condition and provided with a referral to follow-up in the outpatient setting. Differential Diagnosis Differential Diagnoses: The differential diagnosis associated with the presentation includes Please see the discussion Admission/Observation Consideration of admission/observation: Escalation of care including admission/observation considered Please see the discussion above Consult Healthcare Provider Management of the patient was discussed with: Fryer Line Helper Please see the discussion of Lab Data MDM Lab Attestation statement: I reviewed the patient's lab results. Please see the discussion above 12/07/23 14:00 12/07/23 14:00 Labs: Lab Results 12/07/23 Range/Units 14:00 WBC 8.9 (4.8-10.8) X10*3/uL RBC 4.97 (4.60-5.80) X10*6/uL Hgb 15.2 (14.0-18.0) g/dl Hct 46.8 (42.0-52.0) % MCV 94.2 (80.0-98.0) fL MCH 30.6 (27.0-33.0) pg MCHC 32.5 (31.0-36.0) g/dl RDW 12.1 (11.0-16.0) % Plt Count 267 (160-400) X10*3/uL MPV 8.7 L (9.4-12.4) fL Immature Gran % (Auto) 0.2 (0.0-0.4) % Neut % (Auto) 66.6 (45-73) % Lymph % (Auto) 21.0 (20-40) % [place] % (Auto) 6.6 (2-11) % Eos % (Auto) 5.0 H (0-4) % Baso % (Auto) 0.6 (0-2) % Lymph # (Auto) 1.9 (1.2-4.9) X10*3/uL [place] # (Auto) 0.6 (0.1-1.2) X10*3/uL Eos # (Auto) 0.4 (0.0-0.4) X10*3/uL Baso # (Auto) 0.1 (0.0-0.2) X10*3/uL Abs Immat Gran (auto) 0.02 (0.00-0.03) X10*3/uL Absolute Neuts (auto) 5.9 (2.0-8.3) x10*3/uL Absolute Nucleated RBC 0.000 (0.0-0.012) X10*3/uL Nucleated RBC % (auto) 0.0 (0.0-0.2) /100WBC Sodium 141 (135-145) mmol/L Potassium 4.3 (3.3-5.1) mmol/L Chloride 106 (96-108) mmol/L Carbon Dioxide 30 H (22-29) mmol/L Anion Gap 9 L (12-20) BUN 12 (9-16) mg/dL Creatinine 0.99 (0.5-1.4) mg/dL Estim Creat Clear Calc 91.2 Estimated GFR > 60 Random Glucose 96 (60-115) mg/dL Calcium 9.3 (8.4-10.2) mg/dL Total Bilirubin 0.2 (0.0-1.0) mg/dL AST 13 (5-37) U/L ALT 15 (0-40) U/L Alkaline Phosphatase 61 (39-117) U/L Total Protein 7.1 (6.5-8.0) g/dL Albumin 4.2 (3.5-5.0) g/dL Lipase 9 (8-78) U/L Urine Color Yellow Urine Appearance Clear Urine pH 7.5 (5.0-9.0) Ur Specific [place] 1.010 (1.005-1.025) Urine Protein Negative (Neg-Trace) mg/dL Urine Glucose (UA) Negative (Negative) mg/dL Urine Ketones Negative (Negative) mg/dL Urine Blood Negative (Negative) Urine Nitrite Negative (Negative) Ur Leukocyte Esterase Negative (Negative) COVID-19 (PAMELLA) Negative (Negative) COVID-19 Clin Com See Note Influenza Type A (JONATHON) Negative (Negative) Influenza Type B (JONATHON) Negative (Negative) Influenza A & B Note See Note Radiology Impression Discussion of test interpretation with radiology: I have reviewed the radiologist's reading. Radiologist Impression: Please see the discussion above External Record Review External record reviewed: Outpatient record, Prior outpatient labs and Prior outpatient radiology Chronic Conditions Patient?s care impacted by: Other Autism, schizophrenia Critical Care Time Critical Care Time Critical Care Time: Yes Total Critical Care Time: 45 Attestation: I personally attest to this time spent taking care of the patient. Discharge Plan Discharge Clinical Impression: Intra-abdominal foreign body Patient Disposition: Xfer Other Instructions: Foreign Body Ingestion (ED) Additional Instructions: 1. Resume all home medications as prescribed. 2. Recommend follow-up with General surgery, a referral has been provided below for further outpatient management. Return to the ER for any acute worsening of symptoms. Prescriptions: No Action thiamine HCl (vitamin B1) 100 mg tablet 1 tab PO DAILY divalproex 500 mg tablet extended release 24 hr 4 tab PO BEDTIME folic acid 1 mg tablet 1 tab PO DAILY olanzapine 15 mg tablet 1 tab PO BEDTIME Thera-M 9 mg iron-400 mcg tablet 1 tab PO DAILY Referrals: Bhargav Cervantes PA [Primary Care Provider] - Scot Pendleton MD [Physician] -
[2023-12-07 12:26] VITALS: BP 132/78; PULSE 87; RESP 16; TEMP 36.6; O2SAT 93; BMI 23.2
[2023-12-07 14:06] LABS: MANUAL DIFF FLAG NO
[2023-12-07 14:09] LABS: Basophils Absolute Auto 0.1 X10*3/uL (0.0-0.2); Basophils Percent Auto 0.6 % (0-2); Eosinophils Absolute Auto 0.4 X10*3/uL (0.0-0.4); Hematocrit 46.8 % (42.0-52.0); Hemoglobin 15.2 g/dl (14.0-18.0); Imm Gran Abs Auto 0.02 X10*3/uL (0.00-0.03); Imm Gran Pct Auto 0.2 % (0.0-0.4); Lymphocytes Absolute Auto 1.9 X10*3/uL (1.2-4.9); Mean Corpuscular HGB Conc 32.5 g/dl (31.0-36.0); Mean Corpuscular Hemoglobin 30.6 pg (27.0-33.0); Mean Corpuscular Volume 94.2 fL (80.0-98.0); Mean Platelet Volume 8.7 fL (9.4-12.4); Monocytes Absolute Auto 0.6 X10*3/uL (0.1-1.2); Monocytes Percent Auto 6.6 % (2-11); Neutrophils Absolute Auto 5.9 x10*3/uL (2.0-8.3); Neutrophils Percent Auto 66.6 % (45-73); Platelet Count 267 X10*3/uL (160-400); Red Blood Count 4.97 X10*6/uL (4.60-5.80); Red Cell Distribution Width 12.1 % (11.0-16.0); White Blood Count 8.9 X10*3/uL (4.8-10.8)
[2023-12-07 14:12] LABS: Appearance Urine Clear; Color Urine Yellow; Glucose Urine UA Negative (Negative); Leukocyte Esterase Urine Negative (Negative); Nitrite Urine Negative (Negative); PH 7.5 (5.0-9.0); Urine Blood Negative (Negative); Urine Ketones Negative (Negative); Urine Protein Negative (Neg-Trace)
[2023-12-07 14:24] LABS: Alanine Aminotransferase 15 U/L (0-40); Albumin Level 4.2 g/dL (3.5-5.0); Alkaline Phosphatase 61 U/L (39-117); Anion Gap 9 (12-20); Aspartate Amino Transferase 13 U/L (5-37); Bilirubin Total 0.2 mg/dL (0.0-1.0); Blood Urea Nitrogen 12 mg/dL (9-16); Calcium 9.3 mg/dL (8.4-10.2); Carbon Dioxide 30 mmol/L (22-29); Chloride 106 mmol/L (96-108); Creatinine Clr Calc Pharmacy 91.2; Estimated Glomerular Filt Rate > 60; Glucose Random 96 mg/dL (60-115); Lipase 9 U/L (8-78); Potassium 4.3 mmol/L (3.3-5.1); Sodium 141 mmol/L (135-145); Total Protein 7.1 g/dL (6.5-8.0)
[2023-12-07 14:30] LABS: IDNOW Serial# 6674DD1D; Influenza A Negative (Negative); Influenza B2 Negative (Negative)
[2023-12-07 14:39] LABS: COVID-19 Test Negative (Negative); IDNOW Serial# 16C4AD1C
--- OUTSIDE RECORDS SUMMARY | 2023-12-07 17:00 | XMS_ITS | Continuity of Care Document ---
Author Name Unknown Organization [facility] Address [address] [place] [address]- Care Team Providers Care Credit Union Field Examiner Name Role Phone Bi Harry Primary Care Physician Encounter [facility] Date(s): 06/08/21 - 06/15/21 [facility] [address] [place] [address]- Encounter Diagnosis Autism spectrum(Discharge Diagnosis) - 06/08/21 Polysubstance abuse(Discharge Diagnosis) - 06/08/21 Schizoaffective disorder(Discharge Diagnosis) - 06/08/21 Bipolar disorder(Discharge Diagnosis) - 06/08/21 Attending Physician: Bi Harry Allergies, Adverse Reactions, Alerts Substance Reaction Severity Status clindamycin Active amoxicillin Active Immunizations Given and Recorded Vaccine Date Status Refusal Reason tetanus/diphtheria/pertussis, acel(Tdap) 1 01/06/19 Given Measles/Mumps/Rubella Virus Vaccine 08/19/86 Recor ded Not Given Vaccine Date Status Refusal Reason pneumococcal 23-valent vaccine 03/09/19 Not Given Patient Refuses influenza virus vaccine, inactivated 03/09/19 Not Given Patient Refuses 1Result Comment: [01/06/2019] [id number] Medications Aristada 882 mg/3.2 mL intramuscular suspension, extended release = 882 mg, Intramuscular, Every 28 days, Next dose due 05/02/21, # 1 each, 1 Refills, Maintenance, 04/11/21 8:05:00 EDT, [facility], Partial fill upon patient request if the prescription isfor a schedule II opioid drug., 170, cm, 04/10/21 2... Start Date: 04/11/21 Status: Ordered divalproex sodium 500 mg oral tablet, extended release 4 tablet = 2,000 mg, By Mouth, Daily at bedtime, # 120 tablet, 1 Refills, Maintenance, 04/11/21 8:00:00 EDT, ER Tablet, [facility], Partial fill upon patient request if the prescription is for a schedule II opioid drug., 170, cm, 04/10/21... Start Date: 04/11/21 Status: Ordered folic acid 1 mg oral tablet 1 mg, 1, tablet, By Mouth, Daily, # 30 tablet, Refills 1, Tot. Refills 1, Maintenance, 04/11/21 8:00:00 EDT, Route to Pharmacy Electronically, [facility], Partial fill upon patient request if the prescription is for a schedule II opioid d... Start Date: 04/11/21 Status: Ordered multivitamin with minerals Multiple Vitamins with Minerals oral tablet 1 tablet, By Mouth, Daily, # 30 tablet, 1 Refills, Maintenance, 04/11/21 8:02:00 EDT, Tablet, [facility], Partial fill upon patient request if the prescription is for a schedule II opioid drug., 1 tablet By Mouth Daily, 170, cm, 04/10/21... Start Date: 04/11/21 Status: Ordered olanzapine 15 mg oral tablet 1 tablet = 15 mg, By Mouth, Daily at bedtime, # 30 tablet, 1 Refills, Maintenance, 04/11/21 8:02:00EDT, Tablet, [facility], Partial fill upon patient request if the prescription is for a schedule II opioid drug., 170, cm, 04/10/21 20:33:... Start Date: 04/11/21 Status: Ordered thiamine 100 mg oral tablet 100 mg, 1, tablet, By Mouth, Daily, # 30 tablet, Refills 1, Tot. Refills 1, Maintenance, 04/11/21 8:04:00 EDT, Route to Pharmacy Electronically, [facility], Partial fill upon patient request if the prescription is for a schedule II opioid... Start Date: 04/11/21 Status: Ordered Problem List Condition Effective Dates Status Health Status Inform ant Autism spectrum(Confirmed) Active Autism spectrum disorder(Confirmed) Active Bipolar disorder(Confirmed) Active Excessive daytime sleepiness(Confirmed) Active Depersonalization disorder(Confirmed) Active Hyperprolactinemia(Confirmed) Active Narcolepsy(Confirmed) Active OCD (obsessive compulsive disorder)(Confirmed) Active Polysubstance abuse(Confirmed) Active Schizoaffective disorder(Confirmed) Active Schizoaffective disorder(Confirmed) Active Diagnosis Diagnosis Type Effective Dates Health Status Clinical Service Informant Autism spectrum Discharge Diagnosis 06/08/21 Polysubstance abuse Discharge Diagnosis 06/08/21 Schizoaffective disorder Discharge Diagnosis 06/08/21 Bipolar disorder Discharge Diagnosis 06/08/21 Vital Signs Most recent to oldest [Reference Range]: 1 Height 170 cm (06/08/21 3:06 PM) Weight 61.2 kg (06/08/21 3:06 PM) Oxygen Saturation [94-100 %] 98 % (06/08/21 3:06 PM) Pulse Rate [55-90 bpm] 87 bpm (06/08/21 3:06 PM) Body Mass Index [18.5-24.99] 21.18 (06/08/21 3:06 PM) Blood Pressure [90-138/55-84 mm Hg] 110/ 80mm Hg (06/08/21 3:06 PM) Respiratory Rate [16-30 br/min] 16 br/mi n (06/08/21 3:06 PM) Mode of Delivery (Oxygen) Room air (06/08/21 3:06 PM) Blood pressure sites Arm, right (06/08/21 3:06 PM) Weight Obtained Via Standing scale (06/08/21 3:06 PM) Social History Social History Type Response Smoking Status Never smoker entered on: 03/22/18 Sex
--- OUTSIDE RECORDS SUMMARY | 2023-12-07 17:00 | XMS_ITS | Continuity of Care Document ---
Author Name Unknown Organization [facility] Address [address] [place] [address]- Care Team Providers Care Labor Arbitrator Hearing Office Name Role Phone Bi Harry Primary Care Physician [phone] Encounter [facility] Date(s): 04/13/21 - 05/13/21 [facility] [address] [place] [address]- Allergies, Adverse Reactions, Alerts Substance Reaction Severity Status clindamycin Active amoxicillin Active Immunizations Given and Recorded Vaccine Date Status Refusal Reason tetanus/diphtheria/pertussis, acel(Tdap) 1 01/06/19 Given Not Given Vaccine Date Status Refusal Reason pneumococcal 23-valent vaccine 03/09/19 Not Given Patient Refuses influenza virus vaccine, inactivated 03/09/19 Not Given Patient Refuses 1Result Comment: [01/06/2019] [id number] Medications Aristada 882 mg/3.2 mL intramuscular suspension, extended release = 882 mg, Intramuscular, Every 28 days, Next dose due 05/02/21, # 1 each, 1 Refills, Maintenance, 04/11/21 8:05:00 EDT, [facility], Partial fill upon patient request if the prescription isfor a schedule II opioid drug., 170, cm, 04/10/21 2... Start Date: 04/11/21 Status: Ordered divalproex sodium 500 mg oral tablet, extended release 4 tablet = 2,000 mg, By Mouth, Daily at bedtime, # 120 tablet, 1 Refills, Maintenance, 04/11/21 8:00:00 EDT, ER Tablet, [facility], Partial fill upon patient request if the prescription is for a schedule II opioid drug., 170, cm, 04/10/21... Start Date: 04/11/21 Status: Ordered folic acid 1 mg oral tablet 1 mg, 1, tablet, By Mouth, Daily, # 30 tablet, Refills 1, Tot. Refills 1, Maintenance, 04/11/21 8:00:00 EDT, Route to Pharmacy Electronically, [facility], Partial fill upon patient request if the prescription is for a schedule II opioid d... Start Date: 04/11/21 Status: Ordered multivitamin with minerals Multiple Vitamins with Minerals oral tablet 1 tablet, By Mouth, Daily, # 30 tablet, 1 Refills, Maintenance, 04/11/21 8:02:00 EDT, Tablet, [facility], Partial fill upon patient request if the prescription is for a schedule II opioid drug., 1 tablet By Mouth Daily, 170, cm, 04/10/21... Start Date: 04/11/21 Status: Ordered olanzapine 15 mg oral tablet 1 tablet = 15 mg, By Mouth, Daily at bedtime, # 30 tablet, 1 Refills, Maintenance, 04/11/21 8:02:00EDT, Tablet, [facility], Partial fill upon patient request if the prescription is for a schedule II opioid drug., 170, cm, 04/10/21 20:33:... Start Date: 04/11/21 Status: Ordered thiamine 100 mg oral tablet 100 mg, 1, tablet, By Mouth, Daily, # 30 tablet, Refills 1, Tot. Refills 1, Maintenance, 04/11/21 8:04:00 EDT, Route to Pharmacy Electronically, [facility], Partial fill upon patient request [...] Active Schizoaffective disorder(Confirmed) Active Schizoaffective disorder(Confirmed) Active Social History Social History Type Response Smoking Status Never smoker entered on: 03/22/18 Sex
--- OUTSIDE RECORDS SUMMARY | 2023-12-07 17:00 | XMS_ITS | Continuity of Care Document ---
Author Name Unknown Organization [facility] Address [address] [place] [address]- Care Team Providers Care Body Piercer Name Role Phone Matt Mooney MD Primary Care Physician [place] [facility] [place] 11/04/19 - 12/13/19 [facility] [address] [place] [address]- [facility] Attending Physician: Matt Mooney MD Allergies, Adverse Reactions, Alerts Substance Reaction Severity Status clindamycin Active
--- OUTSIDE RECORDS SUMMARY | 2023-12-07 17:00 | XMS_ITS | Continuity of Care Document ---
Author Name Unknown Organization [facility] ter Address [address] [place] [address]- Care Team Providers Care Wheel And Pinion Inspector Name Role Phone Bi Harry Primary Care Physician [phone] Encounter [facility] [place] Date(s): 07/21/20 - 07/21/[address] [address]- [facility] Discharge Disposition: A-D/C Home Attending Physician: Matt Torre MD Admitting Physician: Matt Torre MD Referring Physician: Not on Staff, Referring MD Allergies, Adverse Reactions, Alerts Substance Reaction Severity Status amoxicillin Active Immunizations Given and Recorded Vaccine Date Status Refusal Reason tetanus/diphtheria/pertussis, acel(Tdap) 1 01/06/19 Given Not Given Vaccine Date Status Refusal Reason influenza virus vaccine, inactivated 03/09/19 Not Given Patient Refuses pneumococcal 23-valent vaccine 03/09/19 Not Given Patient Refuses 1Result Comment: [01/06/2019] [id number] Medications Abilify 5 mg oral tablet 5 mg, 1, tablet, By Mouth, Daily, Take 1 tablet for 7 days, then take 2 tablets for next 7 days, # 30 tablet, Refills 0, Tot. Refills 0, Maintenance, 07/21/20 13:09:00 EDT, Route to Pharmacy Electronically, [facility]/pharmacy #[id number], 170, cm, 07/21/20 6:11:0... Start Date: 07/21/20 Status: Ordered Problem List Condition Effective Dates Status Health Status Inform ant Autism spectrum(Confirmed) Active Excessive daytime sleepiness(Confirmed) Active Depersonalization disorder(Confirmed) Active Hyperprolactinemia(Confirmed) Active Narcolepsy(Confirmed) Active Schizoaffective disorder(Confirmed) Active Vital Signs Most recent to oldest [Reference Range]: 1 2 3 Height 170 cm (07/21/20 2:49 PM) 170 cm (07/21/20 6:11 AM) 170 cm (07/21/20 4:48 AM) Weight 63 kg (07/21/20 2:49 PM) 63 kg (07/21/20 6:11 AM) 63 kg (07/21/20 4:48 AM) Oxygen Saturation [94-100 %] 97 % (07/21/20 11:38 AM) 96 % (07/21/20 6:11 AM) 100 % (07/21/20 4:48 AM) Pulse Rate [55-90 bpm] 60 bpm (07/21/20:38 AM) 70 bpm (07/21/20 6:11 AM) 67 bpm (07/21/20 4:48 AM) Body Mass Index [18.5-24.99] 21.8 (07/21/20 6:11 AM) Blood Pressure [90-138/55-84 mm Hg] 105/59mm Hg (07/21/20:38 AM) 120/68mm Hg (07/21/20 6:11 AM) 122/82mm Hg (07/21/20 4:48 AM) Respiratory Rate [16-30 br/min] 16 br/min (07/21/20 11:38 AM) 16 br/min (07/21/20 6:11 AM) 15 br/min *L* (07/21/20 4:48 AM) Temperature [96.8-100.4 DegF] 98.0 DegF (07/21/20 6:11 AM) 98.2 DegF (07/21/20:48 AM) Liters per Minute 0 L/min (07/21/20 6:11 AM) Mode of Delivery (Oxygen) Room air (07/21/20 11:38 AM) Room air (07/21/20 6:11 AM) Room air (07/21/20 4:48 AM) Blood pressure sites Arm, left (07/21/20 4:48 AM) Temperature Route Oral (07/21/20 6:11 AM) Oral (07/21/20 4:48 AM) Dry Weight 63 kg (07/21/20 2:49 PM) 63 kg (07/21/20 6:11 AM) 63 kg (07/21/20 4:48 AM) Social History Social History Type Response Smoking Status Never smoker entered on: 03/22/18 Sex
--- OUTSIDE RECORDS SUMMARY | 2023-12-07 17:00 | XMS_ITS | Continuity of Care Document ---
Author Name Unknown Organization [facility] Address [address] [place] [address]- Care Team Providers Care Transmission Worker Name Role Phone Not on Staff, PCP Primary Care Physician Unavail able [place] [facility] [place] 11/13/19 - 11/23/19 [facility] [address] [place] [address]- [facility] Attending Physician: Austin Sher Admitting Physician: Austin Sher Referring Physician: Austin Sher Allergies, Adverse Reactions, Alerts Substance Reaction Severity Status amoxicillin Active Immunizations Given and Recorded Vaccine Date Status Refusal Reason tetanus/diphtheria/pertussis, acel(Tdap) 1 01/06/19 Given Not Given Vaccine Date Status Refusal Reason influenza virus vaccine, inactivated 03/09/19 Not Given Patient Refuses pneumococcal 23-valent vaccine 03/09/19 Not Given Patient Refuses 1Result Comment: [01/06/2019] [id number] Medications Abilify 20 mg oral tablet 1 tablet = 20 mg, By Mouth, Daily at bedtime, # 60 tablet, 1 Refills, Maintenance, 11/18/19 8:44:00EST, Tablet, [facility], 170, cm, 11/18/19 8:08:00 EST, Height, 61.7, kg, 11/11/19 13:54:00 EST, Dry Weight Start Date: 11/18/19 Status: Ordered Problem List Condition Effective Dates Status Health Status Inform ant Autism spectrum(Confirmed) Active Excessive daytime sleepiness(Confirmed) Active Depersonalization disorder(Confirmed) Active Hyperprolactinemia(Confirmed) Active Narcolepsy(Confirmed) Active Schizoaffective disorder(Confirmed) Active Social History Social History Type Response Smoking Status Never smoker entered on: 03/22/18 Sex
--- OUTSIDE RECORDS SUMMARY | 2023-12-07 17:00 | XMS_ITS | Continuity of Care Document ---
Author Name Unknown Organization [facility] Address [address] [place] [address]- Care Team Providers Care Social Services Analyst Name Role Phone Bi Harry Primary Care Physician [phone] Encounter [facility] [place] Date(s): 04/22/21 - 05/22/[address] [address] Attending Physician: Austin Sher Admitting Physician: Austin [...] Not Given Patient Refuses 1Result Comment: [01/06/2019] [id number] Medications Aristada 882 mg/3.2 mL intramuscular suspension, extended release = 882 mg, Intramuscular, Every 28 days, Next dose due 05/02/21, # 1 each, 1 Refills, Maintenance, 04/11/21 8:05:00 EDT, [facility], Partial fill upon patient request if the prescription isfor a schedule II opioid drug., 170, cm, 04/10/21 2... Start Date: 04/11/21 Status: Ordered divalproex sodium 500 mg oral tablet, extended release 4 tablet = 2,000 mg, By Mouth, Daily at bedtime, # 120 tablet, 1 Refills, Maintenance, 04/11/21 8:00:00 EDT, ER Tablet, [facility], Partial fill upon patient request if the prescription is for a schedule II opioid drug., 170, cm, 04/10/21... Start Date: 04/11/21 Status: Ordered folic acid 1 mg oral tablet 1 mg, 1, tablet, By Mouth, Daily, # 30 tablet, Refills 1, Tot. Refills 1, Maintenance, 04/11/21 8:00:00 EDT, Route to Pharmacy Electronically, [facility], Partial fill upon patient request if the prescription is for a schedule II opioid d... Start Date: 04/11/21 Status: Ordered multivitamin with minerals Multiple Vitamins with Minerals oral tablet 1 tablet, By Mouth, Daily, # 30 tablet, 1 Refills, Maintenance, 04/11/21 8:02:00 EDT, Tablet, [facility], Partial fill upon patient request if the prescription is for a schedule II opioid drug., 1 tablet By Mouth Daily, 170, cm, 04/10/21... Start Date: 04/11/21 Status: Ordered olanzapine 15 mg oral tablet 1 tablet = 15 mg, By Mouth, Daily at bedtime, # 30 tablet, 1 Refills, Maintenance, 04/11/21 8:02:00EDT, Tablet, [facility], Partial fill upon patient request if the prescription is for a schedule II opioid drug., 170, cm, 04/10/21 20:33:... Start Date: 04/11/21 Status: Ordered thiamine 100 mg oral tablet 100 mg, 1, tablet, By Mouth, Daily, # 30 tablet, Refills 1, Tot. Refills 1, Maintenance, 04/11/21 8:04:00 EDT, Route to Pharmacy Electronically, [facility], Partial fill upon patient request [...]
--- OUTSIDE RECORDS SUMMARY | 2023-12-07 17:00 | XMS_ITS | Continuity of Care Document ---
Author Name Unknown Organization [facility] Address Unknown Care Team Providers Care Crew Leader Name Role Phone Bi Harry Primary Care Physician Encounter [facility] [place] Date(s): 02/02/22 - 03/08/22 [facility] [place] [place] [facility] Attending Physician: Bi Harry Allergies, Adverse Reactions, Alerts No Known Allergies Immunizations Given and Recorded Vaccine Date Status Refusal Reason tetanus/diphtheria/pertussis, acel(Tdap) 1 01/06/19 Given Measles/Mumps/Rubella Virus Vaccine 08/19/86 Recor ded Not Given Vaccine Date Status Refusal Reason influenza virus vaccine, inactivated 02/19/22 Not Given Patient Refuses influenza virus vaccine, inactivated 03/09/19 Not Given Patient Refuses pneumococcal 23-valent vaccine 03/09/19 Not Given Patient Refuses 1Result Comment: [01/06/2019] [id number] Problem List Condition Effective Dates Status Health Status Inform ant Autism spectrum(Confirmed) Active Autism spectrum disorder(Confirmed) Active Bipolar disorder(Confirmed) Active Excessive daytime sleepiness(Confirmed) Active Depersonalization disorder(Confirmed) Active Hyperprolactinemia(Confirmed) Active Narcolepsy(Confirmed) Active OCD (obsessive compulsive disorder)(Confirmed) Active Polysubstance abuse(Confirmed) Active Schizoaffective(Confirmed) Active Schizoaffective disorder(Confirmed) Active Schizoaffective disorder(Confirmed) Active Social History Social History Type Response Smoking Status Never smoker entered on: 03/22/18 Sex
--- OUTSIDE RECORDS SUMMARY | 2023-12-07 17:00 | XMS_ITS | Continuity of Care Document ---
Author Name Unknown Organization [facility] ter Address [address] [place] [address]- Care Team Providers Care Tube Turner Name Role Phone Bi Harry Primary Care Physician Encounter [facility] [place] Date(s): 08/05/20 - 08/06/[address] [address]- [facility] Encounter Diagnosis Autism spectrum disorder(Final) - 08/05/20 Substance abuse(Final) - 08/05/20 Discharge Disposition: A-D/C Home Attending Physician: Luke Diana MD Admitting Physician: Luke Diana MD Referring Physician: Not on Staff, Referring MD Allergies, Adverse Reactions, Alerts Substance Reaction Severity Status amoxicillin Active Immunizations Given and Recorded Vaccine Date Status Refusal Reason tetanus/diphtheria/pertussis, acel(Tdap) 1 01/06/19 Given Not Given Vaccine Date Status Refusal Reason influenza virus vaccine, inactivated 03/09/19 Not Given Patient Refuses pneumococcal 23-valent vaccine 03/09/19 Not Given Patient Refuses 1Result Comment: [01/06/2019] [id number] Medications Abilify 5 mg oral tablet 5 mg, 1, tablet, By Mouth, Daily, Take 1 tablet for 7 days, then take 2 tablets for next 7 days, # 30 tablet, Refills 0, Tot. Refills 0, Maintenance, 07/21/20 13:09:00 EDT, Route to Pharmacy Electronically, [facility]/pharmacy #[id number], 170, cm, 07/21/20 6:11:0... Start Date: 07/21/20 Status: Ordered Problem List Condition Effective Dates Status Health Status Inform ant Autism spectrum(Confirmed) Active Excessive daytime sleepiness(Confirmed) Active Depersonalization disorder(Confirmed) Active Hyperprolactinemia(Confirmed) Active Narcolepsy(Confirmed) Active Schizoaffective disorder(Confirmed) Active Vital Signs Most recent to oldest [Reference Range]: 1 2 3 Oxygen Saturation [94-100 %] 100 % (08/06/20 1:23 PM) 99 % (08/06/20 5:59 AM) 99 % (08/05/20 6:05 PM) Pulse Rate [55-90 bpm] 66 bpm (08/06/20 1:23 PM) 65 bpm (08/06/20 5:59 AM) 68 bpm (08/05/20 6:05 PM) Blood Pressure [90-138/55-84 mm Hg] 145/78mm Hg *H* (08/06/20 1:23 PM) 108/56mm Hg (08/06/20 5:59 AM) 130/72mm Hg (08/05/20 6:05 PM) Respiratory Rate [16-30 br/min] 16 br/min (08/06/20 1:23 PM) 16 br/min (08/06/20 5:59 AM) 19 br/min (08/05/20 6:05 PM) Temperature [96.8-100.4 DegF] 97.9 DegF (08/06/20 1:23 PM) 97.8 DegF (08/06/20 5:59 AM) 98.6 DegF (08/05/20 6:05 PM) Mode of Delivery (Oxygen) Room air (08/06/20 1:23 PM) Room air (08/06/20 5:59 AM) Room air (08/05/20 6:05 PM) Blood pressure sites Arm, right (08/06/20 1:23 PM) Arm, right (08/06/20 5:59 AM) Arm, left (08/05/20 6:05 PM) Temperature Route Oral (08/06/20 1:23 PM) Oral (08/06/20 5:59 AM) Oral (08/05/20 6:05 PM) Social History Social History Type Response Smoking Status Never smoker entered on: 03/22/18 Sex
--- OUTSIDE RECORDS SUMMARY | 2023-12-07 17:00 | XMS_ITS | Continuity of Care Document ---
Author Name Unknown Organization [facility] Address Unknown Care Team Providers Care Make Up Girl Name Role Phone Bi Harry Primary Care Physician [phone] Encounter [facility] [place] Date(s): 07/28/21 - 08/04/21 [facility] Attending Physician: Bi Harry Allergies, Adverse Reactions, Alerts Substance Reaction Severity Status NKA Active Immunizations Given and Recorded Vaccine Date Status Refusal Reason tetanus/diphtheria/pertussis, acel(Tdap) 1 01/06/19 Given Measles/Mumps/Rubella Virus Vaccine 08/19/86 Recor ded Not Given Vaccine Date Status Refusal Reason pneumococcal 23-valent vaccine 03/09/19 Not Given Patient Refuses influenza virus vaccine, inactivated 03/09/19 Not Given Patient Refuses 1Result Comment: [01/06/2019] [id number] Medications Aristada 882 mg/3.2 mL intramuscular suspension, extended release = 882 mg, Intramuscular, Every 28 days, Next dose due 05/02/21, # 1 each, 1 Refills, Maintenance, 04/11/21 8:05:00 EDT, [facility], Partial fill upon patient request if the prescription isfor a schedule II opioid drug., 170, cm, 04/10/21 2... Start Date: 04/11/21 Status: Ordered divalproex sodium 500 mg oral tablet, extended release 4 tablet = 2,000 mg, By Mouth, Daily at bedtime, # 120 tablet, 1 Refills, Maintenance, 04/11/21 8:00:00 EDT, ER Tablet, [facility], Partial fill upon patient request if the prescription is for a schedule II opioid drug., 170, cm, 04/10/21... Start Date: 04/11/21 Status: Ordered folic acid 1 mg oral tablet 1 mg, 1, tablet, By Mouth, Daily, # 30 tablet, Refills 1, Tot. Refills 1, Maintenance, 04/11/21 8:00:00 EDT, Route to Pharmacy Electronically, [facility], Partial fill upon patient request if the prescription is for a schedule II opioid d... Start Date: 04/11/21 Status: Ordered multivitamin with minerals Multiple Vitamins with Minerals oral tablet 1 tablet, By Mouth, Daily, # 30 tablet, 1 Refills, Maintenance, 04/11/21 8:02:00 EDT, Tablet, [facility], Partial fill upon patient request if the prescription is for a schedule II opioid drug., 1 tablet By Mouth Daily, 170, cm, 04/10/21... Start Date: 04/11/21 Status: Ordered olanzapine 15 mg oral tablet 1 tablet = 15 mg, By Mouth, Daily at bedtime, # 30 tablet, 1 Refills, Maintenance, 04/11/21 8:02:00EDT, Tablet, [facility], Partial fill upon patient request if the prescription is for a schedule II opioid drug., 170, cm, 04/10/21 20:33:... Start Date: 04/11/21 Status: Ordered thiamine 100 mg oral tablet 100 mg, 1, tablet, By Mouth, Daily, # 30 tablet, Refills 1, Tot. Refills 1, Maintenance, 04/11/21 8:04:00 EDT, Route to Pharmacy Electronically, [facility], Partial fill upon patient request [...] Active Schizoaffective disorder(Confirmed) Active Schizoaffective disorder(Confirmed) Active Vital Signs Most recent to oldest [Reference Range]: 1 Height 170 cm (07/28/21 11:44 AM) Weight 58.8 kg (07/28/21 11:44 AM) Oxygen Saturation [94-100 %] 98 % (07/28/21 11:44 AM) Pulse Rate [55-90 bpm] 70 bpm (07/28/21 11:44 AM) Body Mass Index [18.5-24.99] 20.35 (07/28/21 11:44 AM) Blood Pressure [90-138/55-84 mm Hg] 102/ 54mm Hg (07/28/21 11:44 AM) Blood pressure sites Arm, right (07/28/21 11:44 AM) Weight Obtained Via Standing scale (07/28/21 11:44 AM) Social History Social History Type Response Smoking Status Never smoker entered on: 03/22/18 Sex
--- OUTSIDE RECORDS SUMMARY | 2023-12-07 17:01 | XMS_ITS | Continuity of Care Document ---
Author Name Unknown Organization [facility] Address [address] [place] [address]- Care Team Providers Care Supervisor Alteration Workroom Name Role Phone Bi Harry Primary Care Physician [id number] [address] [place] [address]- Encounter Diagnosis Schizoaffective disorder(Discharge Diagnosis) - 03/14/21 Polysubstance abuse(Discharge Diagnosis) - 03/14/21 Attending Physician: Bi Harry Allergies, Adverse Reactions, Alerts Substance Reaction Severity Status clindamycin Active amoxicillin Active Immunizations Given and Recorded Vaccine Date Status Refusal Reason tetanus/diphtheria/pertussis, acel(Tdap) 1 01/06/19 Given Not Given Vaccine Date Status Refusal Reason pneumococcal 23-valent vaccine 03/09/19 Not Given Patient Refuses influenza virus vaccine, inactivated 03/09/19 Not Given Patient Refuses 1Result Comment: [01/06/2019] [id number] Medications Abilify Maintena Inj Intramuscular, Every 28 days, Refills 0, Maintenance, 01/28/21 10:50:00 EST, Partial fill upon patient request if the prescription is for a schedule II opioid drug. Start Date: 01/28/21 Status: Ordered Aristada 882 mg/3.2 mL intramuscular suspension, extended release = 882 mg, Intramuscular, Every 28 days, Next due 02/16/21, # 1 each, 0 Refills, Maintenance, 01/21/21 9:11:00 EST, [facility]-, Partial fill upon patient request if the prescription is for a schedule II opioid drug., 169, cm, 02... Start Date: 01/21/21 Status: Ordered benztropine 1 mg oral tablet 1 mg, 1, tablet, By Mouth, 2 times a day, # 60 tablet, Refills 0, Tot. Refills 0, Maintenance, 02/04/21 15:06:00 EST, Route to Pharmacy Electronically, [facility]/pharmacy #[id number], Partial fill upon patient request if the prescription is for a schedule II opio... Start Date: 02/04/21 Status: Ordered benztropine 1 mg oral tablet 1 mg, 1, tablet, By Mouth, 2 times a day, # 60 tablet, Refills 0, Tot. Refills 0, Maintenance, 01/21/21 9:08:00 EST, Route to Pharmacy Electronically, [facility], Partial fill upon patient request if the prescription is for a schedule II... Start Date: 01/21/21 Status: Ordered benztropine 1 mg oral tablet 1 mg, 1, tablet, By Mouth, 2 times a day, # 60 tablet, Refills 0, Tot. Refills 0, Maintenance, 02/15/21 12:16:00 EDT, Route to Pharmacy Electronically, [facility]/pharmacy #[id number], Partial fill upon patient request if the prescription is for a schedule II opio... Start Date: 02/15/21 Status: Ordered divalproex sodium 500 mg oral enteric coated tablet See Instructions, 1 tablet by mouth daily in the morning and 3 tablets by mouth daily at bedtime, #120 tablet, 0 Refills, Maintenance, 02/04/21 15:06:00 EST, Tablet, [facility]30, Partial fillupon patient request if the prescription is for a s... Start Date: 02/04/21 Status: Ordered folic acid 1 mg oral tablet 1 mg, 1, tablet, By Mouth, Daily, # 30 tablet, Refills 0, Tot. Refills 0, Maintenance, 01/21/21 9:08:00 EST, Route to Pharmacy Electronically, [facility], Partial fill upon patient request if the prescription is for a schedule II opioid... Start Date: 01/21/21 Status: Ordered haloperidol 5 mg oral tablet 5 mg, 1, tablet, By Mouth, 2 times a day, # 60 tablet, Refills 0, Tot. Refills 0, Maintenance, 02/15/21 12:16:00 EDT, [id number] fill upon patient request if the prescription is for a schedule II opio... Start Date: 02/15/21 Status: Ordered melatonin 10 mg oral tablet 1 tablet = 10 mg, By Mouth, Daily at bedtime, # 30 tablet, 0 Refills, Maintenance, 01/21/21 9:08:00EST, Tablet, [facility], Partial fill upon patient request if the prescription is fora schedule II opioid drug., 169, cm, 01/21/21 8:56:... Start Date: 01/21/21 Status: Ordered olanzapine 15 mg oral tablet 1 tablet = 15 mg, By Mouth, Daily, # 30 tablet, 0 Refills, Maintenance, 02/04/21 15:05:00 EST, [id number] fill upon patient request if the prescription is for a schedule II opioid drug., 169, cm, 01/28/21 10:48:00 EST, Height,... Start Date: 02/04/21 Status: Ordered olanzapine 15 mg oral tablet 1 tablet = 15 mg, By Mouth, Daily at bedtime, # 30 tablet, 0 Refills, Maintenance, 01/21/21 9:08:00EST, Tablet, [facility], Partial fill upon patient request if the prescription is fora schedule II opioid drug., 169, cm, 01/21/21 8:56:... Start Date: 01/21/21 Status: Ordered olanzapine 15 mg oral tablet 1 tablet = 15 mg, By Mouth, Daily, # 30 tablet, 0 Refills, Maintenance, 02/15/21 12:16:00 EDT, [id number] fill upon patient request if the prescription is for a schedule II opioid drug., 169, cm, 01/28/21 10:48:00 EST, Height,... Start Date: 02/15/21 Status: Ordered thiamine 100 mg oral tablet 100 mg, 1, tablet, By Mouth, 2 times a day, # 60 tablet, Refills 0, Tot. Refills 0, Maintenance, 01/21/21 9:08:00 EST, Route to Pharmacy Electronically, [facility], Partial fill upon patient request if the prescription is for a schedule... Start Date: 01/21/21 Status: Ordered Problem List Condition Effective Dates Status Health Status Inform ant Autism spectrum(Confirmed) Active Autism spectrum disorder(Confirmed) Active Bipolar disorder(Confirmed) Active Excessive daytime sleepiness(Confirmed) Active Depersonalization disorder(Confirmed) Active Hyperprolactinemia(Confirmed) Active Narcolepsy(Confirmed) Active OCD (obsessive compulsive disorder)(Confirmed) Active Polysubstance abuse(Confirmed) Active Schizoaffective disorder(Confirmed) Active Schizoaffective disorder(Confirmed) Active Diagnosis Diagnosis Type Effective Dates Health Status Clinical Service Informant Schizoaffective disorder Discharge Diagnosis 03/14/21 Polysubstance abuse Discharge Diagnosis 03/14/21 Vital Signs Most recent to oldest [Reference Range]: 1 Height 169 cm (03/14/21 10:56 AM) Social History Social History Type Response Smoking Status Never smoker entered on: 03/22/18 Sex Male
--- OUTSIDE RECORDS SUMMARY | 2023-12-07 17:01 | XMS_ITS | Continuity of Care Document ---
Author Name Unknown Organization [facility] Adult Address Unknown Care Team Providers Care Simulation Developer Name Role Phone Bi Harry Primary Care Physician [phone] [id number] Date(s): 10/17/21 - 10/24/21 [facility] Encounter Diagnosis Schizoaffective disorder(Discharge Diagnosis) - 10/18/21 Bipolar disorder(Discharge Diagnosis) - 10/18/21 Attending Physician: Bi Harry Allergies, Adverse Reactions, Alerts Substance Reaction Severity Status NKA Active Immunizations Given and Recorded Vaccine Date Status Refusal Reason tetanus/diphtheria/pertussis, acel(Tdap) 1 01/06/19 Given Measles/Mumps/Rubella Virus Vaccine 08/19/86 Recor ded Not Given Vaccine Date Status Refusal Reason pneumococcal 23-valent vaccine 03/09/19 Not Given Patient Refuses influenza virus vaccine, inactivated 03/09/19 Not Given Patient Refuses 1Result Comment: [01/06/2019] [id number] Medications Aristada 882 mg/3.2 mL intramuscular suspension, extended release = 882 mg, Intramuscular, Every 28 days, Next dose due 05/02/21, # 1 each, 1 Refills, Maintenance, 04/11/21 8:05:00 EDT, [facility], Partial fill upon patient request if the prescription isfor a schedule II opioid drug., 170, cm, 04/10/21 2... Start Date: 04/11/21 Status: Ordered divalproex sodium 500 mg oral tablet, extended release 4 tablet = 2,000 mg, By Mouth, Daily at bedtime, # 120 tablet, 1 Refills, Maintenance, 04/11/21 8:00:00 EDT, ER Tablet, [facility], Partial fill upon patient request if the prescription is for a schedule II opioid drug., 170, cm, 04/10/21... Start Date: 04/11/21 Status: Ordered folic acid 1 mg oral tablet 1 mg, 1, tablet, By Mouth, Daily, # 30 tablet, Refills 1, Tot. Refills 1, Maintenance, 04/11/21 8:00:00 EDT, Route to Pharmacy Electronically, [facility], Partial fill upon patient request if the prescription is for a schedule II opioid d... Start Date: 04/11/21 Status: Ordered multivitamin with minerals Multiple Vitamins with Minerals oral tablet 1 tablet, By Mouth, Daily, # 30 tablet, 1 Refills, Maintenance, 04/11/21 8:02:00 EDT, Tablet, [facility], Partial fill upon patient request if the prescription is for a schedule II opioid drug., 1 tablet By Mouth Daily, 170, cm, 04/10/21... Start Date: 04/11/21 Status: Ordered olanzapine 15 mg oral tablet 1 tablet = 15 mg, By Mouth, Daily at bedtime, # 30 tablet, 1 Refills, Maintenance, 04/11/21 8:02:00EDT, Tablet, [facility], Partial fill upon patient request if the prescription is for a schedule II opioid drug., 170, cm, 04/10/21 20:33:... Start Date: 04/11/21 Status: Ordered thiamine 100 mg oral tablet 100 mg, 1, tablet, By Mouth, Daily, # 30 tablet, Refills 1, Tot. Refills 1, Maintenance, 04/11/21 8:04:00 EDT, Route to Pharmacy Electronically, [facility], Partial fill upon patient request [...] Clinical Service Informant Schizoaffective disorder Discharge Diagnosis 10/18/21 Bipolar disorder Discharge Diagnosis 10/18/21 Vital Signs Most recent to oldest [Reference Range]: 1 Height 170 cm (10/17/21 3:17 PM) Weight 63.3 kg (10/17/21 3:17 PM) Oxygen Saturation [94-100 %] 97 % (10/17/21 3:17 PM) Pulse Rate [55-90 bpm] 78 bpm (10/17/21 3:17 PM) Body Mass Index [18.5-24.99] 21.9 (10/17/21 3:17 PM) Blood Pressure [90-138/55-84 mm Hg] 130/ 70mm Hg (10/17/21 3:17 PM) Respiratory Rate [16-30 br/min] 16 br/mi n (10/17/21 3:17 PM) Mode of Delivery (Oxygen) Room air (10/17/21 3:17 PM) Blood pressure sites Arm, right (10/17/21 3:17 PM) Weight Obtained Via Standing scale (10/17/21 3:17 PM) Social History Social History Type Response Smoking Status Never smoker entered on: 03/22/18 Sex
--- OUTSIDE RECORDS SUMMARY | 2023-12-07 17:01 | XMS_ITS | Continuity of Care Document ---
Author Name Unknown Organization [facility] Adult Address Unknown Care Team Providers Care Ground Surveillance Systems Operator Name Role Phone Bi Harry Primary Care Physician Encounter [facility] Date(s): 07/28/21 - 10/01/21 [facility] Attending Physician: Bi Harry Allergies, Adverse Reactions, Alerts Substance Reaction Severity Status NKA Active Immunizations Given and Recorded Vaccine Date Status Refusal Reason tetanus/diphtheria/pertussis, acel(Tdap) 1 01/06/19 Given Measles/Mumps/Rubella Virus Vaccine 08/19/86 Recor ded Not Given Vaccine Date Status Refusal Reason pneumococcal 23-valent vaccine 03/09/19 Not Given Patient Refuses influenza virus vaccine, inactivated 03/09/19 Not Given Patient Refuses 1Result Comment: [01/06/2019] [id number] Medications Aristada 882 mg/3.2 mL intramuscular suspension, extended release = 882 mg, Intramuscular, Every 28 days, Next dose due 05/02/21, # 1 each, 1 Refills, Maintenance, 04/11/21 8:05:00 EDT, [facility], Partial fill upon patient request if the prescription isfor a schedule II opioid drug., 170, cm, 04/10/21 2... Start Date: 04/11/21 Status: Ordered divalproex sodium 500 mg oral tablet, extended release 4 tablet = 2,000 mg, By Mouth, Daily at bedtime, # 120 tablet, 1 Refills, Maintenance, 04/11/21 8:00:00 EDT, ER Tablet, [facility], Partial fill upon patient request if the prescription is for a schedule II opioid drug., 170, cm, 04/10/21... Start Date: 04/11/21 Status: Ordered folic acid 1 mg oral tablet 1 mg, 1, tablet, By Mouth, Daily, # 30 tablet, Refills 1, Tot. Refills 1, Maintenance, 04/11/21 8:00:00 EDT, Route to Pharmacy Electronically, [facility], Partial fill upon patient request if the prescription is for a schedule II opioid d... Start Date: 04/11/21 Status: Ordered multivitamin with minerals Multiple Vitamins with Minerals oral tablet 1 tablet, By Mouth, Daily, # 30 tablet, 1 Refills, Maintenance, 04/11/21 8:02:00 EDT, Tablet, [facility], Partial fill upon patient request if the prescription is for a schedule II opioid drug., 1 tablet By Mouth Daily, 170, cm, 04/10/21... Start Date: 04/11/21 Status: Ordered olanzapine 15 mg oral tablet 1 tablet = 15 mg, By Mouth, Daily at bedtime, # 30 tablet, 1 Refills, Maintenance, 04/11/21 8:02:00EDT, Tablet, [facility], Partial fill upon patient request if the prescription is for a schedule II opioid drug., 170, cm, 04/10/21 20:33:... Start Date: 04/11/21 Status: Ordered thiamine 100 mg oral tablet 100 mg, 1, tablet, By Mouth, Daily, # 30 tablet, Refills 1, Tot. Refills 1, Maintenance, 04/11/21 8:04:00 EDT, Route to Pharmacy Electronically, [facility], Partial fill upon patient request [...]
--- OUTSIDE RECORDS SUMMARY | 2023-12-07 17:01 | XMS_ITS | Continuity of Care Document ---
Author Name Unknown Organization [facility] Adult Address Unknown Care Team Providers Care Credit Operations Processor Name Role Phone Bi Harry Primary Care Physician [phone] Encounter [facility] [place] Date(s): 12/30/21 - 01/29/22 [facility] Adult Attending Physician: Austin Sher Admitting Physician: AdmtrAustin Referring Physician: Admtr, Austin Allergies, Adverse Reactions, Alerts No Known Allergies Immunizations Given and Recorded Vaccine Date Status Refusal Reason tetanus/diphtheria/pertussis, acel(Tdap) 1 01/06/19 Given Measles/Mumps/Rubella Virus Vaccine 08/19/86 Recor ded Not Given Vaccine Date Status Refusal Reason pneumococcal 23-valent vaccine 03/09/19 Not Given Patient Refuses influenza virus vaccine, inactivated 03/09/19 Not Given Patient Refuses 1Result Comment: [01/06/2019] [id number] Medications Aristada 882 mg/3.2 mL intramuscular suspension, extended release = 882 mg, Intramuscular, Every 28 days, Next dose due 05/02/21, # 1 each, 1 Refills, Maintenance, 04/11/21 8:05:00 EDT, [facility], Partial fill upon patient request if the prescription isfor a schedule II opioid drug., 170, cm, 04/10/21 2... Start Date: 04/11/21 Status: Ordered divalproex sodium 500 mg oral tablet, extended release 4 tablet = 2,000 mg, By Mouth, Daily at bedtime, # 120 tablet, 1 Refills, Maintenance, 04/11/21 8:00:00 EDT, ER Tablet, [facility], Partial fill upon patient request if the prescription is for a schedule II opioid drug., 170, cm, 04/10/21... Start Date: 04/11/21 Status: Ordered folic acid 1 mg oral tablet 1 mg, 1, tablet, By Mouth, Daily, # 30 tablet, Refills 1, Tot. Refills 1, Maintenance, 04/11/21 8:00:00 EDT, Route to Pharmacy Electronically, [facility], Partial fill upon patient request if the prescription is for a schedule II opioid d... Start Date: 04/11/21 Status: Ordered multivitamin with minerals Multiple Vitamins with Minerals oral tablet 1 tablet, By Mouth, Daily, # 30 tablet, 1 Refills, Maintenance, 04/11/21 8:02:00 EDT, Tablet, [facility], Partial fill upon patient request if the prescription is for a schedule II opioid drug., 1 tablet By Mouth Daily, 170, cm, 04/10/21... Start Date: 04/11/21 Status: Ordered olanzapine 15 mg oral tablet 1 tablet = 15 mg, By Mouth, Daily at bedtime, # 30 tablet, 1 Refills, Maintenance, 04/11/21 8:02:00EDT, Tablet, [facility], Partial fill upon patient request if the prescription is for a schedule II opioid drug., 170, cm, 04/10/21 20:33:... Start Date: 04/11/21 Status: Ordered thiamine 100 mg oral tablet 100 mg, 1, tablet, By Mouth, Daily, # 30 tablet, Refills 1, Tot. Refills 1, Maintenance, 04/11/21 8:04:00 EDT, Route to Pharmacy Electronically, [facility], Partial fill upon patient request [...]
--- OUTSIDE RECORDS SUMMARY | 2023-12-07 17:01 | XMS_ITS | Continuity of Care Document ---
Author Name Unknown Organization [facility] Adult Address [address] [place] [address]- Care Team Providers Care Real Estate Agent Name Role Phone Bi Harry Primary Care Physician Encounter [facility] Date(s): 05/27/21 - 06/03/21 [facility] [address] [place] [address]- Encounter Diagnosis Bipolar disorder(Discharge Diagnosis) - 05/30/21 Polysubstance abuse(Discharge Diagnosis) - 05/30/21 Schizoaffective disorder(Discharge Diagnosis) - 05/30/21 Attending Physician: Dean Reddy MD Referring Physician: Bi Harry Allergies, Adverse Reactions, Alerts Substance Reaction Severity Status clindamycin Active amoxicillin Active Immunizations Given and Recorded Vaccine Date Status Refusal Reason tetanus/diphtheria/pertussis, acel(Tdap) 1 01/06/19 Given Measles/Mumps/Rubella Virus Vaccine 08/19/86 Recor ded Not Given Vaccine Date Status Refusal Reason pneumococcal 23-valent vaccine 03/09/19 Not Given Patient Refuses influenza virus vaccine, inactivated 03/09/19 Not Given Patient Refuses 1Result Comment: [01/06/2019] [id number] Medications Aristada 882 mg/3.2 mL intramuscular suspension, extended release = 882 mg, Intramuscular, Every 28 days, Next dose due 05/02/21, # 1 each, 1 Refills, Maintenance, 04/11/21 8:05:00 EDT, [facility], Partial fill upon patient request if the prescription isfor a schedule II opioid drug., 170, cm, 04/10/21 2... Start Date: 04/11/21 Status: Ordered divalproex sodium 500 mg oral tablet, extended release 4 tablet = 2,000 mg, By Mouth, Daily at bedtime, # 120 tablet, 1 Refills, Maintenance, 04/11/21 8:00:00 EDT, ER Tablet, [facility], Partial fill upon patient request if the prescription is for a schedule II opioid drug., 170, cm, 04/10/21... Start Date: 04/11/21 Status: Ordered folic acid 1 mg oral tablet 1 mg, 1, tablet, By Mouth, Daily, # 30 tablet, Refills 1, Tot. Refills 1, Maintenance, 04/11/21 8:00:00 EDT, Route to Pharmacy Electronically, [facility], Partial fill upon patient request if the prescription is for a schedule II opioid d... Start Date: 04/11/21 Status: Ordered multivitamin with minerals Multiple Vitamins with Minerals oral tablet 1 tablet, By Mouth, Daily, # 30 tablet, 1 Refills, Maintenance, 04/11/21 8:02:00 EDT, Tablet, [facility], Partial fill upon patient request if the prescription is for a schedule II opioid drug., 1 tablet By Mouth Daily, 170, cm, 04/10/21... Start Date: 04/11/21 Status: Ordered olanzapine 15 mg oral tablet 1 tablet = 15 mg, By Mouth, Daily at bedtime, # 30 tablet, 1 Refills, Maintenance, 04/11/21 8:02:00EDT, Tablet, [facility], Partial fill upon patient request if the prescription is for a schedule II opioid drug., 170, cm, 04/10/21 20:33:... Start Date: 04/11/21 Status: Ordered thiamine 100 mg oral tablet 100 mg, 1, tablet, By Mouth, Daily, # 30 tablet, Refills 1, Tot. Refills 1, Maintenance, 04/11/21 8:04:00 EDT, Route to Pharmacy Electronically, [facility], Partial fill upon patient request [...] Effective Dates Health Status Clinical Service Informant Bipolar disorder Discharge Diagnosis 05/30/21 Polysubstance abuse Discharge Diagnosis 05/30/21 Schizoaffective disorder Discharge Diagnosis 05/30/21 Vital Signs Most recent to oldest [Reference Range]: 1 Height 170 cm (05/27/21 3:15 PM) Weight 61.2 kg (05/27/21 3:15 PM) Oxygen Saturation [94-100 %] 98 % (05/27/21 3:15 PM) Pulse Rate [55-90 bpm] 59 bpm (05/27/21 3:15 PM) Body Mass Index [18.5-24.99] 21.18 (05/27/21 3:15 PM) Blood Pressure [90-138/55-84 mm Hg] 102/ 80mm Hg (05/27/21 3:15 PM) Blood pressure sites Arm, left (05/27/21 3:15 PM) Social History Social History Type Response Smoking Status Never smoker entered on: 03/22/18 Sex
--- OUTSIDE RECORDS SUMMARY | 2023-12-07 17:01 | XMS_ITS | Continuity of Care Document ---
Author Name Unknown Organization [facility] Adult Address [address] [place] [address]- Care Team Providers Care Nylon Operator Name Role Phone Bi Harry Primary Care Physician [place] [facility] - 02/04/21 [facility] [address] [place] [address]- Encounter Diagnosis Bipolar disorder(Discharge Diagnosis) - 01/28/21 Schizoaffective disorder(Discharge Diagnosis) - 01/28/21 Polysubstance abuse(Discharge Diagnosis) - 01/28/21 Attending Physician: Barry CASTELLANOS, Dean Thornton Allergies, Adverse Reactions, Alerts Substance Reaction Severity Status clindamycin Active amoxicillin Active Immunizations Given and Recorded Vaccine Date Status Refusal Reason tetanus/diphtheria/pertussis, acel(Tdap) 1 01/06/19 Given Not Given Vaccine Date Status Refusal Reason pneumococcal 23-valent vaccine 03/09/19 Not Given Patient Refuses influenza virus vaccine, inactivated 03/09/19 Not Given Patient Refuses 1Result Comment: [01/06/2019] [id number] Medications Abilify Maintena Inj Intramuscular, Every 28 days, Refills 0, Maintenance, 01/28/21 10:50:00 EST, Partial fill upon patient request if the prescription is for a schedule II opioid drug. Start Date: 01/28/21 Status: Ordered Aristada 882 mg/3.2 mL intramuscular suspension, extended release = 882 mg, Intramuscular, Every 28 days, Next due 02/16/21, # 1 each, 0 Refills, Maintenance, 01/21/21 9:11:00 EST, [facility]-, Partial fill upon patient request if the prescription is for a schedule II opioid drug., 169, cm, 02... Start Date: 01/21/21 Status: Ordered benztropine 1 mg oral tablet 1 mg, 1, tablet, By Mouth, 2 times a day, # 60 tablet, Refills 0, Tot. Refills 0, Maintenance, 02/04/21 15:06:00 EST, [id number] Partial fill upon patient request if the prescription is for a schedule II opio... Start Date: 02/04/21 Status: Ordered benztropine 1 mg oral tablet 1 mg, 1, tablet, By Mouth, 2 times a day, # 60 tablet, Refills 0, Tot. Refills 0, Maintenance, 01/21/21 9:08:00 EST, Route to Pharmacy Electronically, [facility], Partial fill upon patient request if the prescription is for a schedule II... Start Date: 01/21/21 Status: Ordered divalproex sodium 500 mg oral enteric coated tablet See Instructions, 1 tablet by mouth daily in the morning and 3 tablets by mouth daily at bedtime, #120 tablet, 0 Refills, Maintenance, 02/04/21 15:06:00 EST, [id number] fillupon patient request if the prescription is for a s... Start Date: 02/04/21 Status: Ordered folic acid 1 mg oral tablet 1 mg, 1, tablet, By Mouth, Daily, # 30 tablet, Refills 0, Tot. Refills 0, Maintenance, 01/21/21 9:08:00 EST, Route to Pharmacy Electronically, [facility], Partial fill upon patient request if the prescription is for a schedule II opioid... Start Date: 01/21/21 Status: Ordered melatonin 10 mg oral tablet 1 tablet = 10 mg, By Mouth, Daily at bedtime, # 30 tablet, 0 Refills, Maintenance, 01/21/21 9:08:00EST, Tablet, [facility], Partial fill upon patient request if the prescription is fora schedule II opioid drug., 169, cm, 01/21/21 8:56:... Start Date: 01/21/21 Status: Ordered olanzapine 15 mg oral tablet 1 tablet = 15 mg, By Mouth, Daily, # 30 tablet, 0 Refills, Maintenance, 02/04/21 15:05:00 EST, Tablet, [id number], Partial fill upon patient request if the prescription is for a schedule II opioid drug., 169, cm, 01/28/21 10:48:00 EST, Height,... Start Date: 02/04/21 Status: Ordered olanzapine 15 mg oral tablet 1 tablet = 15 mg, By Mouth, Daily at bedtime, # 30 tablet, 0 Refills, Maintenance, 01/21/21 9:08:00EST, Tablet, [facility], Partial fill upon patient request if the prescription is fora schedule II opioid drug., 169, cm, 01/21/21 8:56:... Start Date: 01/21/21 Status: Ordered thiamine 100 mg oral tablet 100 mg, 1, tablet, By Mouth, 2 times a day, # 60 tablet, Refills 0, Tot. Refills 0, Maintenance, 01/21/21 9:08:00 EST, Route to Pharmacy Electronically, [facility], Partial fill upon patient [...] Clinical Service Informant Bipolar disorder Discharge Diagnosis 01/28/21 Schizoaffective disorder Discharge Diagnosis 01/28/21 Polysubstance abuse Discharge Diagnosis 01/28/21 Vital Signs Most recent to oldest [Reference Range]: 1 Height 169 cm (01/28/21 10:48 AM) Social History Social History Type Response Smoking Status Never smoker entered on: 03/22/18 Sex Male
--- OUTSIDE RECORDS SUMMARY | 2023-12-07 17:01 | XMS_ITS | Continuity of Care Document ---
Author Name Unknown Organization [facility] Adult Address Unknown Care Team Providers Care Bonsai Tender Name Role Phone Bi Harry Primary Care Physician Encounter [facility] [place] Date(s): 02/06/22 - 03/08/22 [facility] [place] [facility] Attending Physician: Austin Sher Admitting Physician: Austin Sher Referring Physician: AdmtrAustin Allergies, Adverse Reactions, Alerts No Known Allergies Immunizations Given and Recorded Vaccine Date Status Refusal Reason tetanus/diphtheria/pertussis, acel(Tdap) 1 01/06/19 Given Measles/Mumps/Rubella Virus Vaccine 08/19/86 Recor ded Not Given Vaccine Date Status Refusal Reason influenza virus vaccine, inactivated 02/19/22 Not Given Patient Refuses influenza virus vaccine, inactivated 03/09/19 Not Given Patient Refuses pneumococcal 23-valent vaccine 03/09/19 Not Given Patient Refuses 1Result Comment: [01/06/2019] [id number] Problem List Condition Effective Dates Status Health [...]
--- OUTSIDE RECORDS SUMMARY | 2023-12-07 17:01 | XMS_ITS | Continuity of Care Document ---
Author Name Unknown Organization [facility] ter Address [address] [place] [address]- Care Team Providers Care Dairy Worker Name Role Phone Bi Harry Primary Care Physician [phone] Encounter [facility] [place] Date(s): 11/18/20 - 11/18/[address] [address]- Encounter Diagnosis Schizoaffective disorder(Final) - 11/18/20 Discharge Disposition: A-D/C Home Attending Physician: Quique CASTELLANOS, Adelia Domínguez Admitting Physician: Adelia Lei MD Referring Physician: Not on Staff, Referring MD Allergies, Adverse Reactions, Alerts Substance Reaction Severity Status amoxicillin Active Immunizations Given and Recorded Vaccine Date Status Refusal Reason tetanus/diphtheria/pertussis, acel(Tdap) 1 01/06/19 Given Not Given Vaccine Date Status Refusal Reason pneumococcal 23-valent vaccine 03/09/19 Not Given Patient Refuses influenza virus vaccine, inactivated 03/09/19 Not Given Patient Refuses 1Result Comment: [01/06/2019] [id number] Medications divalproex sodium 500 mg oral enteric coated tablet = 500 mg, By Mouth, 2 times a day, # 28 tablet, 2 Refills, Maintenance, 09/03/20 11:14:00 EDT, Tablet Start Date: 09/03/20 Status: Ordered melatonin 3 mg oral tablet 1 tablet = 3 mg, By Mouth, Daily at bedtime, # 14 tablet, 2 Refills, Maintenance, 09/03/20 11:15:00EDT, Tablet Start Date: 09/03/20 Status: Ordered Risperdal Consta 37.5 mg intramuscular injection See Instructions, 37.5 mg Intramuscular every 2 weeks. DUE 09/16/20, # 1 each, 0 Refills, Maintenance, 09/16/20 7:00:00 EDT Start Date: 09/16/20 Status: Ordered risperiDONE 2 mg oral tablet See Instructions, Week 0-3: 1/2 tab (1mg) every morning then discontinue on 09/27., # 12 tablet, Refills 0, Tot. Refills 0, Maintenance, 09/03/20 11:18:00 EDT, Instructions Replace Required Details, Print Requisition, Please ensure patient understands... Start Date: 09/03/20 Stop Date: 09/27/20 Status: Ordered risperiDONE 2 mg oral tablet See Instructions, Week 0: Take 2 tabs (4mg) at bedtime Week 1: Take 1.5 tabs (3mg) at bedtime Week 2: Take 1 tab (2mg) at bedtime Week 3 &4: Take 1/2 tab (1mg) at bedtime Week 5: Do not take Risperidone by mouth. Continue injections every 2 weeks... Start Date: 09/03/20 Stop Date: 10/04/20 Status: Ordered Senna 8.6 mg oral tablet 17.2 mg, 2, tablet, By Mouth, Daily, # 28 tablet, Refills 2, Tot. Refills 2, Maintenance, 09/03/20 11:26:00 EDT, Print Requisition, Tablet Start Date: 09/03/20 Status: Ordered Problem List Condition Effective Dates Status Health Status Inform ant Autism spectrum(Confirmed) Active Excessive daytime sleepiness(Confirmed) Active Depersonalization disorder(Confirmed) Active Hyperprolactinemia(Confirmed) Active Narcolepsy(Confirmed) Active Schizoaffective disorder(Confirmed) Active Vital Signs Most recent to oldest [Reference Range]: 1 2 Oxygen Saturation [94-100 %] 98 % (11/18/20 6:22 PM) 99 % (11/18/20 1:31 PM) Pulse Rate [55-90 bpm] 57 bpm (11/18/20 6:22 PM) 67 bpm (11/18/20 1:31 PM) Blood Pressure [90-138/55-84 mm Hg] 116/ 61mm Hg (11/18/20 6:22 PM) 133/65mm Hg (11/18/20 1:31 PM) Respiratory Rate [16-30 br/min] 16 br/mi n (11/18/20 6:22 PM) 20 br/min (11/18/20 1:31 PM) Temperature [96.8-100.4 DegF] 98.5 DegF (11/18/20 1:31 PM) Mode of Delivery (Oxygen) Room air (11/18/20 6:22 PM) Room air (11/18/20 1:31 PM) Temperature Route Oral (11/18/20 1:31 PM) Social History Social History Type Response Smoking Status Never smoker entered on: 03/22/18 Sex
--- OUTSIDE RECORDS SUMMARY | 2023-12-07 17:01 | XMS_ITS | Continuity of Care Document ---
Author Name Unknown Organization [facility] Address [address] [place] [id number]- Care Team Providers Care Brand Marketing Intern Name Role Phone Not on Staff, PCP Primary Care Physician Unavail able [place] [facility] [place] 06/[place]/[address] [address]- [facility] Encounter Diagnosis Schizophrenia(Final) - 06/09/20 Discharge Disposition: A-D/C Home Attending Physician: Gilson Lord MD Admitting Physician: Gilson Lord MD Referring Physician: Not on Staff, Referring MD Allergies, Adverse Reactions, Alerts Substance Reaction Severity Status amoxicillin Active Immunizations Given and Recorded Vaccine Date Status Refusal Reason tetanus/diphtheria/pertussis, acel(Tdap) 1 01/06/19 Given Not Given Vaccine Date Status Refusal Reason influenza virus vaccine, inactivated 03/09/19 Not Given Patient Refuses pneumococcal 23-valent vaccine 03/09/19 Not Given Patient Refuses 1Result Comment: [01/06/2019] [id number] Medications Abilify 20 mg oral tablet 1 tablet = 20 mg, By Mouth, Daily at bedtime, # 60 tablet, 1 Refills, Maintenance, 11/18/19 8:44:00EST, Tablet, [facility], 170, cm, 11/18/19 8:08:00 EST, Height, 61.7, kg, 11/11/19 13:54:00 EST, Dry Weight Start Date: 11/18/19 Status: Ordered Invega Sustenna 117 mg/0.75 mL intramuscular suspension, extended release = 117 mg, Intramuscular, Every 28 days, administer IM on June 20, 2020, # 0.75 mL, 0 Refills, Maintenance, 06/09/20 18:07:00 EDT, [facility], 170, cm, 06/09/20 16:31:00 EDT, Height, 61.5, kg, 06/09/20 16:31:00 EDT, Dry Weight Start Date: 06/09/20 Status: Ordered Problem List Condition Effective Dates Status Health Status Inform ant Autism spectrum(Confirmed) Active Excessive daytime sleepiness(Confirmed) Active Depersonalization disorder(Confirmed) Active Hyperprolactinemia(Confirmed) Active Narcolepsy(Confirmed) Active Schizoaffective disorder(Confirmed) Active Vital Signs Most recent to oldest [Reference Range]: 1 2 Height 170 cm (06/09/20 6:50 PM) 170 cm (06/09/20 4:31 PM) Weight 61.5 kg (06/09/20 6:50 PM) 61.5 kg (06/09/20 4:31 PM) Oxygen Saturation [94-100 %] 96 % (06/09/20 4:31 PM) 100 % (06/09/20 4:29 PM) Pulse Rate [55-90 bpm] 81 bpm (06/09/20 4:31 PM) 106 bpm *H* (06/09/20 4:29 PM) Blood Pressure [90-138/55-84 mm Hg] 103/ 58mm Hg (06/09/20 4:31 PM) Respiratory Rate [16-30 br/min] 18 br/mi n (06/09/20 4:31 PM) Temperature [96.8-100.4 DegF] 97.4 DegF (06/09/20 4:31 PM) Mode of Delivery (Oxygen) Room air (06/09/20 4:31 PM) Room air (06/09/20 4:29 PM) Temperature Route Oral (06/09/20 4:31 PM) Dry Weight 61.5 kg (06/09/20 6:50 PM) 61.5 kg (06/09/20 4:31 PM) Social History Social History Type Response Smoking Status Never smoker entered on: 03/22/18 Sex
--- OUTSIDE RECORDS SUMMARY | 2023-12-07 17:01 | XMS_ITS | Continuity of Care Document ---
Author Name Unknown Organization [facility] Address [address] [place] [address]- Care Team Providers Care Conche Loader And Unloader Name Role Phone Bi Harry Primary Care Physician [place] [facility] [place] 12/21/20 - 01/21/21 [facility] [address] [place] [address]- Attending Physician: Bi Harry Allergies, Adverse Reactions, Alerts Substance Reaction Severity Status clindamycin Active amoxicillin Active Immunizations Given and Recorded Vaccine Date Status Refusal Reason tetanus/diphtheria/pertussis, acel(Tdap) 1 01/06/19 Given Not Given Vaccine Date Status Refusal Reason pneumococcal 23-valent vaccine 03/09/19 Not Given Patient Refuses influenza virus vaccine, inactivated 03/09/19 Not Given Patient Refuses 1Result Comment: [01/06/2019] [id number] Medications Aristada 882 mg/3.2 mL intramuscular suspension, extended release = 882 mg, Intramuscular, Every 28 days, Next due 02/16/21, # 1 each, 0 Refills, Maintenance, 01/21/21 9:11:00 EST, [facility]-, Partial fill upon patient request if the prescription is for a schedule II opioid drug., 169, cm, 02... Start Date: 01/21/21 Status: Ordered benztropine 1 mg oral tablet 1 mg, 1, tablet, By Mouth, 2 times a day, # 60 tablet, Refills 0, Tot. Refills 0, Maintenance, 01/21/21 9:08:00 EST, Route to Pharmacy Electronically, [facility], Partial fill upon patient request if the prescription is for a schedule II... Start Date: 01/21/21 Status: Ordered divalproex sodium 500 mg oral enteric coated tablet See Instructions, 1 tablet by mouth daily in the morning and 3 tablets by mouth daily at bedtime, #120 tablet, 0 Refills, Maintenance, 01/21/21 9:07:00 EST, Tablet, [facility], Partialfill upon patient request if the prescription is fo... Start Date: 01/21/21 Status: Ordered folic acid 1 mg oral tablet 1 mg, 1, tablet, By Mouth, Daily, # 30 tablet, Refills 0, Tot. Refills 0, Maintenance, 01/21/21 9:08:00 EST, Route to Pharmacy Electronically, [facility], Partial fill upon patient request if the prescription is for a schedule II opioid... Start Date: 01/21/21 Status: Ordered melatonin 10 mg oral tablet 1 tablet = 10 mg, By Mouth, Daily at bedtime, # 30 tablet, 0 Refills, Maintenance, 01/21/21 9:08:00EST, Tablet, [facility], Partial fill upon patient request if the prescription is fora schedule II opioid drug., 169, cm, 01/21/21 8:56:... Start Date: 01/21/21 Status: Ordered olanzapine 15 mg oral tablet 1 tablet = 15 mg, By Mouth, Daily at bedtime, # 30 tablet, 0 Refills, Maintenance, 01/21/21 9:08:00EST, Tablet, [facility], Partial fill upon patient request if the prescription is fora schedule II opioid drug., 169, cm, 01/21/21 8:56:... Start Date: 01/21/21 Status: Ordered thiamine 100 mg oral tablet 100 mg, 1, tablet, By Mouth, 2 times a day, # 60 tablet, Refills 0, Tot. Refills 0, Maintenance, 01/21/21 9:08:00 EST, Route to Pharmacy Electronically, [facility], Partial fill upon patient request [...]
--- OUTSIDE RECORDS SUMMARY | 2023-12-07 17:01 | XMS_ITS | Continuity of Care Document ---
Author Name Unknown Organization [facility] Address Unknown Care Team Providers Care Digital Computer Systems Analyst Name Role Phone Bi Harry Primary Care Physician [phone] Encounter [facility] Date(s): 01/31/22 - 03/02/22 [facility] Allergies, Adverse Reactions, Alerts No Known Allergies Immunizations Given and Recorded Vaccine Date Status Refusal Reason tetanus/diphtheria/pertussis, acel(Tdap) 1 01/06/19 Given Measles/Mumps/Rubella Virus Vaccine 08/19/86 Recor ded Not Given Vaccine Date Status Refusal Reason influenza virus vaccine, inactivated 02/19/22 Not Given Patient Refuses influenza virus vaccine, inactivated 03/09/19 Not Given Patient Refuses pneumococcal 23-valent vaccine 03/09/19 Not Given Patient Refuses 1Result Comment: [01/06/2019] [id number] Problem List Condition Effective Dates Status Health [...]
--- OUTSIDE RECORDS SUMMARY | 2023-12-07 17:01 | XMS_ITS | Continuity of Care Document ---
Author Name Unknown Organization [facility] Address [address] [place] [address]- Care Team Providers Care Overweaver Name Role Phone Jesica CASTELLANOS, Matt Santiago Primary Care Physician Encounter [facility] [place] Date(s): 01/19/20 - 01/24/[address] [address]- [facility] Encounter Diagnosis Psychosis(Final) - 01/19/20 Bipolar disorder(Final) - 01/19/20 Psychosis(Final) - 01/19/20 Bipolar disorder(Final) - 01/19/20 Agitation(Final) - 01/19/20 Discharge Disposition: Transfer to Psych Facility Attending Physician: Vira De Jesus MD Admitting Physician: Vira De Jesus MD Referring Physician: Not on Staff, Referring MD Allergies, Adverse Reactions, Alerts Substance Reaction Severity Status amoxicillin Active Immunizations Given and Recorded Vaccine Date Status Refusal Reason tetanus/diphtheria/pertussis, acel(Tdap) 1 01/06/19 Given Not Given Vaccine Date Status Refusal Reason influenza virus vaccine, inactivated 03/09/19 Not Given Patient Refuses pneumococcal 23-valent vaccine 03/09/19 Not Given Patient Refuses 1Result Comment: [01/06/2019] [id number] Medications Abilify 20 mg oral tablet 1 tablet = 20 mg, By Mouth, Daily at bedtime, # 60 tablet, 1 Refills, Maintenance, 11/18/19 8:44:00EST, Tablet, [facility], 170, cm, 11/18/19 8:08:00 EST, Height, 61.7, kg, 11/11/19 13:54:00 EST, Dry Weight Start Date: 11/18/19 Status: Ordered Problem List Condition Effective Dates Status Health Status Inform ant Autism spectrum(Confirmed) Active Excessive daytime sleepiness(Confirmed) Active Depersonalization disorder(Confirmed) Active Hyperprolactinemia(Confirmed) Active Narcolepsy(Confirmed) Active Schizoaffective disorder(Confirmed) Active Vital Signs Most recent to oldest [Reference Range]: 1 2 3 Oxygen Saturation [94-100 %] 99 % (01/24/20 2:35 PM) 99 % (01/24/20 5:10 AM) 100 % (01/23/20 9:22 PM) Pulse Rate [55-90 bpm] 68 bpm (01/24/20 2:35 PM) 108 bpm *H* (01/24/20 5:10 AM) 81 bpm (01/23/20 9:22 PM) Blood Pressure [90-138/55-84 mm Hg] 124/66mm Hg (01/24/20 2:35 PM) 114/64mm Hg (01/24/20 5:10 AM) 131/68mm Hg (01/23/20 9:22 PM) Respiratory Rate [16-30 br/min] 16 br/min (01/24/20 2:35 PM) 17 br/min (01/24/20 5:10 AM) 18 br/min (01/23/20 9:22 PM) Temperature [96.8-100.4 DegF] 97.1 DegF (01/24/20 2:35 PM) 97.5 DegF (01/24/20 5:10 AM) 98 DegF (01/23/20 9:22 PM) Mode of Delivery (Oxygen) Room air (01/24/20 2:35 PM) Room air (01/24/20 5:10 AM) Room air (01/23/20 9:22 PM) Blood pressure sites Arm, left (01/24/20 2:35 PM) Arm, right (01/24/20 5:10 AM) Arm, right (01/23/20 9:22 PM) Temperature Route Oral (01/24/20 2:35 PM) Oral (01/24/20 5:10 AM) Oral (01/23/20 9:22 PM) Social History Social History Type Response Smoking Status Never smoker entered on: 03/22/18 Sex
--- OUTSIDE RECORDS SUMMARY | 2023-12-07 17:01 | XMS_ITS | Continuity of Care Document ---
Author Name Unknown Organization [facility] Address Unknown Care Team Providers Care Weatherization Installer Name Role Phone Bi Harry Primary Care Physician Encounter [facility] Date(s): 01/31/22 - 03/02/22 [facility] Allergies, Adverse Reactions, Alerts No Known [...] Not Given Patient Refuses 1Result Comment: [01/06/2019] [id number] Problem List Condition Effective Dates Status Health [...]
--- OUTSIDE RECORDS SUMMARY | 2023-12-07 17:01 | XMS_ITS | Continuity of Care Document ---
Author Name Unknown Organization [facility] Address [address] [place] [id number]- Care Team Providers Care Clinic Lpn Name Role Phone Bi Harry Primary Care Physician Encounter [facility] [place] Date(s): 02/06/21 - 02/07/[address] [address]- Encounter Diagnosis Schizoaffective disorder(Final) - 02/06/21 Agitated(Final) - 02/06/21 Discharge Disposition: A-D/C Home Attending Physician: Adonis Paz MD Admitting Physician: Adonis Paz MD Referring Physician: Not on Staff, Referring MD Allergies, Adverse Reactions, Alerts Substance Reaction Severity Status clindamycin Active amoxicillin Active Immunizations Given and Recorded Vaccine Date Status Refusal Reason tetanus/diphtheria/pertussis, acel(Tdap) 1 01/06/19 Given Not Given Vaccine Date Status Refusal Reason pneumococcal 23-valent vaccine 03/09/19 Not Given Patient Refuses influenza virus vaccine, inactivated 03/09/19 Not Given Patient Refuses 1Result Comment: [01/06/2019] [id number] Medications Abilify Maintena Inj Intramuscular, Every 28 days, Refills 0, Maintenance, 01/28/21 10:50:00 EST, Partial fill upon patient request if the prescription is for a schedule II opioid drug. Start Date: 01/28/21 Status: Ordered Aristada 882 mg/3.2 mL intramuscular suspension, extended release = 882 mg, Intramuscular, Every 28 days, Next due 02/16/21, # 1 each, 0 Refills, Maintenance, 01/21/21 9:11:00 EST, [facility]-, Partial fill upon patient request if the prescription is for a schedule II opioid drug., 169, cm, 02... Start Date: 01/21/21 Status: Ordered benztropine 1 mg oral tablet 1 mg, 1, tablet, By Mouth, 2 times a day, # 60 tablet, Refills 0, Tot. Refills 0, Maintenance, 02/04/21 15:06:00 EST, [id number], Partial fill upon patient request if the prescription is for a schedule II opio... Start Date: 02/04/21 Status: Ordered benztropine 1 mg oral tablet 1 mg, 1, tablet, By Mouth, 2 times a day, # 60 tablet, Refills 0, Tot. Refills 0, Maintenance, 01/21/21 9:08:00 EST, Route to Pharmacy Electronically, [facility], Partial fill upon patient request if the prescription is for a schedule II... Start Date: 01/21/21 Status: Ordered divalproex sodium 500 mg oral enteric coated tablet See Instructions, 1 tablet by mouth daily in the morning and 3 tablets by mouth daily at bedtime, #120 tablet, 0 Refills, Maintenance, 02/04/21 15:06:00 EST, Tablet, [id number], Partial fillupon patient request if the prescription is for a s... Start Date: 02/04/21 Status: Ordered folic acid 1 mg oral tablet 1 mg, 1, tablet, By Mouth, Daily, # 30 tablet, Refills 0, Tot. Refills 0, Maintenance, 01/21/21 9:08:00 EST, Route to Pharmacy Electronically, [facility], Partial fill upon patient request if the prescription is for a schedule II opioid... Start Date: 01/21/21 Status: Ordered melatonin 10 mg oral tablet 1 tablet = 10 mg, By Mouth, Daily at bedtime, # 30 tablet, 0 Refills, Maintenance, 01/21/21 9:08:00EST, Tablet, [facility], Partial fill upon patient request if the prescription is fora schedule II opioid drug., 169, cm, 01/21/21 8:56:... Start Date: 01/21/21 Status: Ordered olanzapine 15 mg oral tablet 1 tablet = 15 mg, By Mouth, Daily, # 30 tablet, 0 Refills, Maintenance, 02/04/21 15:05:00 EST, Tablet, [id number], Partial fill upon patient request if the prescription is for a schedule II opioid drug., 169, cm, 01/28/21 10:48:00 EST, Height,... Start Date: 02/04/21 Status: Ordered olanzapine 15 mg oral tablet 1 tablet = 15 mg, By Mouth, Daily at bedtime, # 30 tablet, 0 Refills, Maintenance, 01/21/21 9:08:00EST, Tablet, [facility], Partial fill upon patient request if the prescription is fora schedule II opioid drug., 169, cm, 01/21/21 8:56:... Start Date: 01/21/21 Status: Ordered thiamine 100 mg oral tablet 100 mg, 1, tablet, By Mouth, 2 times a day, # 60 tablet, Refills 0, Tot. Refills 0, Maintenance, 01/21/21 9:08:00 EST, Route to Pharmacy Electronically, [facility], Partial fill upon patient request [...] 3 Oxygen Saturation [94-100 %] 100 % (02/07/21 1:30 PM) 100 % (02/07/21 5:08 AM) 98 % (02/06/21 7:27 PM) Pulse Rate [55-90 bpm] 54 bpm *L* (02/07/21 1:30 PM) 99 bpm *H* (02/07/21 5:08 AM) 66 bpm (02/06/21 7:27 PM) Blood Pressure [90-138/55-84 mm Hg] 108/60mm Hg (02/07/21 1:30 PM) 102/54mm Hg (02/07/21 5:08 AM) 105/85mm Hg (02/06/21 7:27 PM) Respiratory Rate [16-30 br/min] 16 br/min (02/07/21 1:30 PM) 15 br/min *L* (02/07/21 5:08 AM) 21 br/min (02/06/21 7:27 PM) Temperature [96.8-100.4 DegF] 97.6 DegF (02/07/21 1:30 PM) 97.5 DegF (02/07/21 5:08 AM) 97.9 DegF (02/06/21 7:27 PM) Mode of Delivery (Oxygen) Room air (02/07/21 1:30 PM) Room air (02/07/21 5:08 AM) Room air (02/06/21 7:27 PM) Blood pressure sites Arm, left (02/07/21 1:30 PM) Arm, right (02/07/21 5:08 AM) Arm, right (02/06/21 7:27 PM) Temperature Route Oral (02/07/21 1:30 PM) Oral (02/07/21 5:08 AM) Oral (02/06/21 7:27 PM) Social History Social History Type Response Smoking Status Never smoker entered on: 03/22/18 Sex Male
--- OUTSIDE RECORDS SUMMARY | 2023-12-07 17:01 | XMS_ITS | Continuity of Care Document ---
Author Name Unknown Organization [facility] Address [address] [place] [address]- Care Team Providers Care Community Resource Officer Name Role Phone Bi Harry Primary Care Physician [place] [facility] [place] 03/16/21 [facility] [address] [place] [address]- Attending Physician: Bi Harry Allergies, Adverse Reactions, Alerts Substance Reaction Severity Status clindamycin Active amoxicillin Active Immunizations Given and Recorded Vaccine Date Status Refusal Reason tetanus/diphtheria/pertussis, acel(Tdap) 1 01/06/19 Given Not Given Vaccine Date Status Refusal Reason pneumococcal 23-valent vaccine 03/09/19 Not Given Patient Refuses influenza virus vaccine, inactivated 03/09/19 Not Given Patient Refuses 1Result Comment: [01/06/2019] [id number] Medications Abilify Maintena Inj Intramuscular, Every 28 days, Refills 0, Maintenance, 01/28/21 10:50:00 EST, Partial fill upon patient request if the prescription is for a schedule II opioid drug. Start Date: 01/28/21 Status: Ordered Aristada 882 mg/3.2 mL intramuscular suspension, extended release = 882 mg, Intramuscular, Every 28 days, Next due 02/16/21, # 1 each, 0 Refills, Maintenance, 01/21/21 9:11:00 EST, [facility]-, Partial fill upon patient request if the prescription is for a schedule II opioid drug., 169, cm, 02... Start Date: 01/21/21 Status: Ordered benztropine 1 mg oral tablet 1 mg, 1, tablet, By Mouth, 2 times a day, # 60 tablet, Refills 0, Tot. Refills 0, Maintenance, 02/04/21 15:06:00 EST, Route to Pharmacy Electronically, [id number], Partial fill upon patient request if the prescription is for a schedule II opio... Start Date: 02/04/21 Status: Ordered benztropine 1 mg oral tablet 1 mg, 1, tablet, By Mouth, 2 times a day, # 60 tablet, Refills 0, Tot. Refills 0, Maintenance, 01/21/21 9:08:00 EST, Route to Pharmacy Electronically, [facility], Partial fill upon patient request if the prescription is for a schedule II... Start Date: 01/21/21 Status: Ordered benztropine 1 mg oral tablet 1 mg, 1, tablet, By Mouth, 2 times a day, # 60 tablet, Refills 0, Tot. Refills 0, Maintenance, 02/15/21 12:16:00 EDT, Route to Pharmacy Electronically, [id number], Partial fill upon patient request if the prescription is for a schedule II opio... Start Date: 02/15/21 Status: Ordered divalproex sodium 500 mg oral enteric coated tablet See Instructions, 1 tablet by mouth daily in the morning and 3 tablets by mouth daily at bedtime, #120 tablet, 0 Refills, Maintenance, 02/04/21 15:06:00 EST, Tablet, [id number], Partial fillupon patient request if the prescription is for a s... Start Date: 02/04/21 Status: Ordered folic acid 1 mg oral tablet 1 mg, 1, tablet, By Mouth, Daily, # 30 tablet, Refills 0, Tot. Refills 0, Maintenance, 01/21/21 9:08:00 EST, Route to Pharmacy Electronically, [facility], Partial fill upon patient request if the prescription is for a schedule II opioid... Start Date: 01/21/21 Status: Ordered haloperidol 5 mg oral tablet 5 mg, 1, tablet, By Mouth, 2 times a day, # 60 tablet, Refills 0, Tot. Refills 0, Maintenance, 02/15/21 12:16:00 EDT, Route to Pharmacy Electronically, [id number], Partial fill upon patient request if the prescription is for a schedule II opio... Start Date: 02/15/21 Status: Ordered melatonin 10 mg oral tablet 1 tablet = 10 mg, By Mouth, Daily at bedtime, # 30 tablet, 0 Refills, Maintenance, 01/21/21 9:08:00EST, Tablet, [facility], Partial fill upon patient request if the prescription is fora schedule II opioid drug., 169, cm, 01/21/21 8:56:... Start Date: 01/21/21 Status: Ordered olanzapine 15 mg oral tablet 1 tablet = 15 mg, By Mouth, Daily, # 30 tablet, 0 Refills, Maintenance, 02/04/21 15:05:00 EST, Tablet, [id number], Partial fill upon patient request if the prescription is for a schedule II opioid drug., 169, cm, 01/28/21 10:48:00 EST, Height,... Start Date: 02/04/21 Status: Ordered olanzapine 15 mg oral tablet 1 tablet = 15 mg, By Mouth, Daily at bedtime, # 30 tablet, 0 Refills, Maintenance, 01/21/21 9:08:00EST, Tablet, [facility], Partial fill upon patient request if the prescription is fora schedule II opioid drug., 169, cm, 01/21/21 8:56:... Start Date: 01/21/21 Status: Ordered olanzapine 15 mg oral tablet 1 tablet = 15 mg, By Mouth, Daily, # 30 tablet, 0 Refills, Maintenance, 02/15/21 12:16:00 EDT, Tablet, [id number], Partial fill upon patient request if the prescription is for a schedule II opioid drug., 169, cm, 01/28/21 10:48:00 EST, Height,... Start Date: 02/15/21 Status: Ordered thiamine 100 mg oral tablet 100 mg, 1, tablet, By Mouth, 2 times a day, # 60 tablet, Refills 0, Tot. Refills 0, Maintenance, 01/21/21 9:08:00 EST, Route to Pharmacy Electronically, [facility], Partial fill upon patient [...]
--- OUTSIDE RECORDS SUMMARY | 2023-12-07 17:01 | XMS_ITS | Continuity of Care Document ---
Author Name Unknown Organization [facility] Address [address] [place] [address]- Care Team Providers Care Senior Software Manager Name Role Phone Bi Harry Primary Care Physician Encounter [facility] Date(s): 09/03/20 - 10/03/20 [facility] [address] [place] [address]- Allergies, Adverse Reactions, Alerts Substance Reaction Severity Status amoxicillin Active Immunizations Given and Recorded Vaccine Date Status Refusal Reason tetanus/diphtheria/pertussis, acel(Tdap) 1 01/06/19 Given Not Given Vaccine Date Status Refusal Reason influenza virus vaccine, inactivated 03/09/19 Not Given Patient Refuses pneumococcal 23-valent vaccine 03/09/19 Not Given Patient Refuses 1Result Comment: [01/06/2019] [id number] Medications divalproex sodium 500 mg oral enteric [...]
--- OUTSIDE RECORDS SUMMARY | 2023-12-07 17:01 | XMS_ITS | Continuity of Care Document ---
Author Name Unknown Organization [facility] Adult Address [address] [place] [address]- Care Team Providers Care Belly Packer Name Role Phone Bi Harry Primary Care Physician [place] [facility] [place]21 [facility] [address] [place] [address]- Attending Physician: Bi Harry Allergies, Adverse Reactions, Alerts Substance Reaction Severity Status clindamycin Active amoxicillin Active Immunizations Given and Recorded Vaccine Date Status Refusal Reason tetanus/diphtheria/pertussis, acel(Tdap) 1 01/06/19 Given Not Given Vaccine Date Status Refusal Reason pneumococcal 23-valent vaccine 03/09/19 Not Given Patient Refuses influenza virus vaccine, inactivated 03/09/19 Not Given Patient Refuses 1Result Comment: [01/06/2019] [id number] Medications Aristada 882 mg/3.2 mL intramuscular suspension, extended release = 882 mg, Intramuscular, Every 28 days, Next dose due 05/02/21, # 1 each, 1 Refills, Maintenance, 04/11/21 8:05:00 EDT, [facility], Partial fill upon patient request if the prescription isfor a schedule II opioid drug., 170, cm, 04/10/21 2... Start Date: 04/11/21 Status: Ordered divalproex sodium 500 mg oral tablet, extended release 4 tablet = 2,000 mg, By Mouth, Daily at bedtime, # 120 tablet, 1 Refills, Maintenance, 04/11/21 8:00:00 EDT, ER Tablet, [facility], Partial fill upon patient request if the prescription is for a schedule II opioid drug., 170, cm, 04/10/21... Start Date: 04/11/21 Status: Ordered folic acid 1 mg oral tablet 1 mg, 1, tablet, By Mouth, Daily, # 30 tablet, Refills 1, Tot. Refills 1, Maintenance, 04/11/21 8:00:00 EDT, Route to Pharmacy Electronically, [facility], Partial fill upon patient request if the prescription is for a schedule II opioid d... Start Date: 04/11/21 Status: Ordered multivitamin with minerals Multiple Vitamins with Minerals oral tablet 1 tablet, By Mouth, Daily, # 30 tablet, 1 Refills, Maintenance, 04/11/21 8:02:00 EDT, Tablet, [facility], Partial fill upon patient request if the prescription is for a schedule II opioid drug., 1 tablet By Mouth Daily, 170, cm, 04/10/21... Start Date: 04/11/21 Status: Ordered olanzapine 15 mg oral tablet 1 tablet = 15 mg, By Mouth, Daily at bedtime, # 30 tablet, 1 Refills, Maintenance, 04/11/21 8:02:00EDT, Tablet, [facility], Partial fill upon patient request if the prescription is for a schedule II opioid drug., 170, cm, 04/10/21 20:33:... Start Date: 04/11/21 Status: Ordered thiamine 100 mg oral tablet 100 mg, 1, tablet, By Mouth, Daily, # 30 tablet, Refills 1, Tot. Refills 1, Maintenance, 04/11/21 8:04:00 EDT, Route to Pharmacy Electronically, [facility], Partial fill upon patient request [...]
--- OUTSIDE RECORDS SUMMARY | 2023-12-07 17:01 | XMS_ITS | Continuity of Care Document ---
Author Name Unknown Organization [facility] Adult Address [address] [place] [address]- Care Team Providers Care Vp Treasurer Name Role Phone Bi Harry Primary Care Physician Encounter [facility] Date(s): 03/30/21 - 04/29/21 [facility] [address] [place] [address]- Allergies, Adverse Reactions, Alerts Substance Reaction Severity Status clindamycin Active amoxicillin Active Immunizations Given and Recorded Vaccine Date Status Refusal Reason tetanus/diphtheria/pertussis, acel(Tdap) 1 01/06/19 Given Not Given Vaccine Date Status Refusal Reason pneumococcal 23-valent vaccine 03/09/19 Not Given Patient Refuses influenza virus vaccine, inactivated 03/09/19 Not Given Patient Refuses 1Result Comment: [01/06/2019] [id number] Medications Aristada 882 mg/3.2 mL intramuscular suspension, extended release = 882 mg, Intramuscular, Every 28 days, Next dose due 05/02/21, # 1 each, 1 Refills, Maintenance, 04/11/21 8:05:00 EDT, [facility], Partial fill upon patient request if the prescription isfor a schedule II opioid drug., 170, cm, 04/10/21 2... Start Date: 04/11/21 Status: Ordered divalproex sodium 500 mg oral tablet, extended release 4 tablet = 2,000 mg, By Mouth, Daily at bedtime, # 120 tablet, 1 Refills, Maintenance, 04/11/21 8:00:00 EDT, ER Tablet, [facility], Partial fill upon patient request if the prescription is for a schedule II opioid drug., 170, cm, 04/10/21... Start Date: 04/11/21 Status: Ordered folic acid 1 mg oral tablet 1 mg, 1, tablet, By Mouth, Daily, # 30 tablet, Refills 1, Tot. Refills 1, Maintenance, 04/11/21 8:00:00 EDT, Route to Pharmacy Electronically, [facility], Partial fill upon patient request if the prescription is for a schedule II opioid d... Start Date: 04/11/21 Status: Ordered multivitamin with minerals Multiple Vitamins with Minerals oral tablet 1 tablet, By Mouth, Daily, # 30 tablet, 1 Refills, Maintenance, 04/11/21 8:02:00 EDT, Tablet, [facility], Partial fill upon patient request if the prescription is for a schedule II opioid drug., 1 tablet By Mouth Daily, 170, cm, 04/10/21... Start Date: 04/11/21 Status: Ordered olanzapine 15 mg oral tablet 1 tablet = 15 mg, By Mouth, Daily at bedtime, # 30 tablet, 1 Refills, Maintenance, 04/11/21 8:02:00EDT, Tablet, [facility], Partial fill upon patient request if the prescription is for a schedule II opioid drug., 170, cm, 04/10/21 20:33:... Start Date: 04/11/21 Status: Ordered thiamine 100 mg oral tablet 100 mg, 1, tablet, By Mouth, Daily, # 30 tablet, Refills 1, Tot. Refills 1, Maintenance, 04/11/21 8:04:00 EDT, Route to Pharmacy Electronically, [facility], Partial fill upon patient request [...]
--- OUTSIDE RECORDS SUMMARY | 2023-12-07 17:01 | XMS_ITS | Continuity of Care Document ---
Author Name Unknown Organization [facility] Address [address] [place] [address]- Care Team Providers Care Pharmacy Operations Specialist Name Role Phone Not on Staff, PCP Primary Care Physician Unavail able Encounter [facility] [place] Date(s): 06/20/20 - 06/20/[address] [address]- [facility] Discharge Disposition: A-D/C Walkout Attending Physician: Not on Staff, Attending MD Admitting Physician: Not on Staff, Admitting MD Referring Physician: Not on Staff, Referring MD Allergies, Adverse Reactions, Alerts Substance Reaction Severity Status amoxicillin Active Immunizations Given and Recorded Vaccine Date Status Refusal Reason tetanus/diphtheria/pertussis, acel(Tdap) 1 01/06/19 Given Not Given Vaccine Date Status Refusal Reason influenza virus vaccine, inactivated 03/09/19 Not Given Patient Refuses pneumococcal 23-valent vaccine 03/09/19 Not Given Patient Refuses 1Result Comment: [01/06/2019] [id number] Medications Abilify 20 mg oral tablet 1 tablet = 20 mg, By Mouth, Daily at bedtime, # 60 tablet, 1 Refills, Maintenance, 11/18/19 8:44:00EST, Tablet, [facility], 170, cm, 11/18/19 8:08:00 EST, Height, 61.7, kg, 11/11/19 13:54:00 EST, Dry Weight Start Date: 11/18/19 Status: Ordered Invega Sustenna 117 mg/0.75 mL intramuscular suspension, extended release = 117 mg, Intramuscular, Every 28 days, administer IM on June 20, 2020, # 0.75 mL, 0 Refills, Maintenance, 06/09/20 18:07:00 EDT, [facility], 170, cm, 06/09/20 16:31:00 EDT, Height, 61.5, kg, 06/09/20 16:31:00 EDT, Dry Weight Start Date: 06/09/20 Status: Ordered Problem List Condition Effective Dates Status Health Status Inform ant Autism spectrum(Confirmed) Active Excessive daytime sleepiness(Confirmed) Active Depersonalization disorder(Confirmed) Active Hyperprolactinemia(Confirmed) Active Narcolepsy(Confirmed) Active Schizoaffective disorder(Confirmed) Active Vital Signs Most recent to oldest [Reference Range]: 1 Height 170 cm (06/20/20 3:49 PM) Weight 63 kg (06/20/20 3:49 PM) Oxygen Saturation [94-100 %] 98 % (06/20/20 3:49 PM) Pulse Rate [55-90 bpm] 78 bpm (06/20/20 3:49 PM) Body Mass Index [18.5-24.99] 21.8 (06/20/20 3:49 PM) Blood Pressure [90-138/55-84 mm Hg] 126/ 77mm Hg (06/20/20 3:49 PM) Respiratory Rate [16-30 br/min] 16 br/mi n (06/20/20 3:49 PM) Temperature [96.8-100.4 DegF] 98.4 DegF (06/20/20 3:49 PM) Mode of Delivery (Oxygen) Room air (06/20/20 3:49 PM) Blood pressure sites Arm, left (06/20/20 3:49 PM) Temperature Route Oral (06/20/20 3:49 PM) Dry Weight 63 kg (06/20/20 3:49 PM) Weight Obtained Via Patient/family state d (06/20/20 3:49 PM) Dry Weight Obtained Via Patient/family s tated (06/20/20 3:49 PM) Social History Social History Type Response Smoking Status Never smoker entered on: 03/22/18 Sex
--- OUTSIDE RECORDS SUMMARY | 2023-12-07 17:02 | XMS_ITS | Continuity of Care Document ---
Author Name Unknown Organization [facility] Adult Address Unknown Care Team Providers Care Dry Kiln Burner Name Role Phone Bi Harry Primary Care Physician [place] [facility] [place] 07[place]21 [facility] Attending Physician: Bi Harry [...] Not Given Patient Refuses 1Result Comment: [01/06/2019] [id number] Medications Aristada 882 mg/3.2 mL intramuscular suspension, extended release = 882 mg, Intramuscular, Every 28 days, Next dose due 05/02/21, # 1 each, 1 Refills, Maintenance, 04/11/21 8:05:00 EDT, [facility], Partial fill upon patient request if the prescription isfor a schedule II opioid drug., 170, cm, 04/10/21 2... Start Date: 04/11/21 Status: Ordered divalproex sodium 500 mg oral tablet, extended release 4 tablet = 2,000 mg, By Mouth, Daily at bedtime, # 120 tablet, 1 Refills, Maintenance, 04/11/21 8:00:00 EDT, ER Tablet, [facility], Partial fill upon patient request if the prescription is for a schedule II opioid drug., 170, cm, 04/10/21... Start Date: 04/11/21 Status: Ordered folic acid 1 mg oral tablet 1 mg, 1, tablet, By Mouth, Daily, # 30 tablet, Refills 1, Tot. Refills 1, Maintenance, 04/11/21 8:00:00 EDT, Route to Pharmacy Electronically, [facility], Partial fill upon patient request if the prescription is for a schedule II opioid d... Start Date: 04/11/21 Status: Ordered multivitamin with minerals Multiple Vitamins with Minerals oral tablet 1 tablet, By Mouth, Daily, # 30 tablet, 1 Refills, Maintenance, 04/11/21 8:02:00 EDT, Tablet, [facility], Partial fill upon patient request if the prescription is for a schedule II opioid drug., 1 tablet By Mouth Daily, 170, cm, 04/10/21... Start Date: 04/11/21 Status: Ordered olanzapine 15 mg oral tablet 1 tablet = 15 mg, By Mouth, Daily at bedtime, # 30 tablet, 1 Refills, Maintenance, 04/11/21 8:02:00EDT, Tablet, [facility], Partial fill upon patient request if the prescription is for a schedule II opioid drug., 170, cm, 04/10/21 20:33:... Start Date: 04/11/21 Status: Ordered thiamine 100 mg oral tablet 100 mg, 1, tablet, By Mouth, Daily, # 30 tablet, Refills 1, Tot. Refills 1, Maintenance, 04/11/21 8:04:00 EDT, Route to Pharmacy Electronically, [facility], Partial fill upon patient request [...]
--- OUTSIDE RECORDS SUMMARY | 2023-12-07 17:02 | XMS_ITS | Continuity of Care Document ---
Author Name Unknown Organization [facility] ter Address [address] [place] [address]- Care Team Providers Care Screen Machine Operator Name Role Phone iB Harry Primary Care Physician [place] [facility] [place]17[place] - 07/17/[address] [address]- [facility] Discharge Disposition: A-D/C Home Attending Physician: New Soliman MD Admitting Physician: New Soliman MD Referring Physician: Not on Staff, Referring MD Allergies, Adverse Reactions, Alerts Substance Reaction Severity Status amoxicillin Active Immunizations Given and Recorded Vaccine Date Status Refusal Reason tetanus/diphtheria/pertussis, acel(Tdap) 1 01/06/19 Given Not Given Vaccine Date Status Refusal Reason influenza virus vaccine, inactivated 03/09/19 Not Given Patient Refuses pneumococcal 23-valent vaccine 03/09/19 Not Given Patient Refuses 1Result Comment: [01/06/2019] [id number] Medications Invega Sustenna 117 mg/0.75 mL intramuscular suspension, extended release = 117 mg, Intramuscular, Every 28 days, administer IM on June 20, 2020, # 0.75 mL, 0 Refills, Maintenance, 06/09/20 18:07:00 EDT, [facility], 170, cm, 06/09/20 16:31:00 EDT, Height, 61.5, kg, 06/09/20 16:31:00 EDT, Dry Weight Start Date: 06/09/20 Status: Ordered Problem List Condition Effective Dates Status Health Status Inform ant Autism spectrum(Confirmed) Active Excessive daytime sleepiness(Confirmed) Active Depersonalization disorder(Confirmed) Active Hyperprolactinemia(Confirmed) Active Narcolepsy(Confirmed) Active Schizoaffective disorder(Confirmed) Active Vital Signs Most recent to oldest [Reference Range]: 1 2 3 Oxygen Saturation [94-100 %] 98 % (07/17/20 6:26 PM) 100 % (07/17/20 3:33 PM) 97 % (07/17/20 8:06 AM) Pulse Rate [55-90 bpm] 67 bpm (07/17/20 6:26 PM) 78 bpm (07/17/20 3:33 PM) 65 bpm (07/17/20 8:06 AM) Blood Pressure [90-138/55-84 mm Hg] 102/72mm Hg (07/17/20 6:26 PM) 117/62mm Hg (07/17/20 3:33 PM) 113/67mm Hg (07/17/20 8:06 AM) Respiratory Rate [16-30 br/min] 16 br/min (07/17/20 6:26 PM) 16 br/min (07/17/20 3:33 PM) 20 br/min (07/17/20 8:06 AM) Temperature [96.8-100.4 DegF] 97.9 DegF (07/17/20 6:26 PM) 98.0 DegF (07/17/20 3:33 PM) 97.3 DegF (07/17/20 9:51 AM) Mode of Delivery (Oxygen) Room air (07/17/20 6:26 PM) Room air (07/17/20 3:33 PM) Room air (07/17/20 8:06 AM) Blood pressure sites Arm, right (07/17/20 6:26 PM) Arm, left (07/17/20 3:33 PM) Arm, left (07/17/20 8:06 AM) Temperature Route Oral (07/17/20 6:26 PM) Oral (07/17/20 3:33 PM) Oral (07/17/20 9:51 AM) Social History Social History Type Response Smoking Status Never smoker entered on: 03/22/18 Sex
--- OUTSIDE RECORDS SUMMARY | 2023-12-07 17:02 | XMS_ITS | Continuity of Care Document ---
Author Name Unknown Organization [facility] ter Address [address] [place] [address]- Care Team Providers Care Payroll Services Analyst Name Role Phone Bi Harry Primary Care Physician [phone] [place] [facility] [place] - 01/19/[address] [address]- Encounter Diagnosis Acute schizophrenia(Final) - 01/16/22 Discharge Disposition: A-D/C Home Attending Physician: Nilson Rowan MD Admitting Physician: Nilson Rowan MD Referring Physician: Not on Staff, Referring MD Allergies, Adverse Reactions, Alerts No Known Allergies Immunizations Given and Recorded Vaccine Date Status Refusal Reason tetanus/diphtheria/pertussis, acel(Tdap) 1 01/06/19 Given Measles/Mumps/Rubella Virus Vaccine 08/19/86 Recor ded Not Given Vaccine Date Status Refusal Reason pneumococcal 23-valent vaccine 03/09/19 Not Given Patient Refuses influenza virus vaccine, inactivated 03/09/19 Not Given Patient Refuses 1Result Comment: [01/06/2019] [id number] Medications Aristada 882 mg/3.2 mL intramuscular suspension, extended release = 882 mg, Intramuscular, Every 28 days, Next dose due 05/02/21, # 1 each, 1 Refills, Maintenance, 04/11/21 8:05:00 EDT, [facility], Partial fill upon patient request if the prescription isfor a schedule II opioid drug., 170, cm, 04/10/21 2... Start Date: 04/11/21 Status: Ordered divalproex sodium 500 mg oral tablet, extended release 4 tablet = 2,000 mg, By Mouth, Daily at bedtime, # 120 tablet, 1 Refills, Maintenance, 04/11/21 8:00:00 EDT, ER Tablet, [facility], Partial fill upon patient request if the prescription is for a schedule II opioid drug., 170, cm, 04/10/21... Start Date: 04/11/21 Status: Ordered folic acid 1 mg oral tablet 1 mg, 1, tablet, By Mouth, Daily, # 30 tablet, Refills 1, Tot. Refills 1, Maintenance, 04/11/21 8:00:00 EDT, Route to Pharmacy Electronically, [facility], Partial fill upon patient request if the prescription is for a schedule II opioid d... Start Date: 04/11/21 Status: Ordered multivitamin with minerals Multiple Vitamins with Minerals oral tablet 1 tablet, By Mouth, Daily, # 30 tablet, 1 Refills, Maintenance, 04/11/21 8:02:00 EDT, Tablet, [facility], Partial fill upon patient request if the prescription is for a schedule II opioid drug., 1 tablet By Mouth Daily, 170, cm, 04/10/21... Start Date: 04/11/21 Status: Ordered olanzapine 15 mg oral tablet 1 tablet = 15 mg, By Mouth, Daily at bedtime, # 30 tablet, 1 Refills, Maintenance, 04/11/21 8:02:00EDT, Tablet, [facility], Partial fill upon patient request if the prescription is for a schedule II opioid drug., 170, cm, 04/10/21 20:33:... Start Date: 04/11/21 Status: Ordered thiamine 100 mg oral tablet 100 mg, 1, tablet, By Mouth, Daily, # 30 tablet, Refills 1, Tot. Refills 1, Maintenance, 04/11/21 8:04:00 EDT, Route to Pharmacy Electronically, [facility], Partial fill upon patient request [...] 3 Oxygen Saturation [94-100 %] 100 % (01/19/22 6:41 AM) 100 % (01/18/22 9:17 PM) 98 % (01/18/22 2:50 PM) Pulse Rate [55-90 bpm] 79 bpm (01/19/22 6:41 AM) 83 bpm (01/18/22 9:17 PM) 86 bpm (01/18/22 2:50 PM) Blood Pressure [90-138/55-84 mm Hg] 137/76mm Hg (01/19/22 6:41 AM) 132/71mm Hg (01/18/22 9:17 PM) 149/84mm Hg *H* (01/18/22 2:50 PM) Respiratory Rate [16-30 br/min] 16 br/min (01/19/22 6:41 AM) 16 br/min (01/18/22 9:17 PM) 18 br/min (01/18/22 2:50 PM) Temperature [96.8-100.4 DegF] 98.4 DegF (01/19/22 6:41 AM) 98.2 DegF (01/18/22 9:17 PM) 98.3 DegF (01/18/22 2:50 PM) Mode of Delivery (Oxygen) Room air (01/19/22 6:41 AM) Room air (01/18/22 9:17 PM) Room air (01/18/22 2:50 PM) Blood pressure sites Arm, right (01/19/22 6:41 AM) Arm, right (01/18/22 9:17 PM) Arm, right (01/18/22 2:50 PM) Temperature Route Oral (01/19/22 6:41 AM) Oral (01/18/22 9:17 PM) Oral (01/18/22 2:50 PM) Social History Social History Type Response Smoking Status Never smoker entered on: 03/22/18 Sex
--- OUTSIDE RECORDS SUMMARY | 2023-12-07 17:02 | XMS_ITS | Continuity of Care Document ---
Author Name Unknown Organization [facility] Adult Address [address] [place] [address]- Care Team Providers Care Awning Spreader Name Role Phone Bi Harry Primary Care Physician Encounter [facility] [place] Date(s): 06/21/20 - 07/21/20 [facility] [address] [place] [address]- [facility] Allergies, Adverse Reactions, Alerts Substance Reaction Severity Status amoxicillin Active Immunizations Given and Recorded Vaccine Date Status Refusal Reason tetanus/diphtheria/pertussis, acel(Tdap) 1 01/06/19 Given Not Given Vaccine Date Status Refusal Reason influenza virus vaccine, inactivated 03/09/19 Not Given Patient Refuses pneumococcal 23-valent vaccine 03/09/19 Not Given Patient Refuses 1Result Comment: [01/06/2019] [id number] Medications Abilify 5 mg oral tablet 5 mg, 1, tablet, By Mouth, Daily, Take 1 tablet for 7 days, then take 2 tablets for next 7 days, # 30 tablet, Refills 0, Tot. Refills 0, Maintenance, 07/21/20 13:09:00 EDT, Route to Pharmacy Electronically, [id number], 170, cm, 07/21/20 6:11:0... Start Date: 07/21/20 Status: Ordered Problem List Condition Effective Dates Status Health Status Inform ant Autism spectrum(Confirmed) Active Excessive daytime sleepiness(Confirmed) Active Depersonalization disorder(Confirmed) Active Hyperprolactinemia(Confirmed) Active Narcolepsy(Confirmed) Active Schizoaffective disorder(Confirmed) Active Social History Social History Type Response Smoking Status Never smoker entered on: 03/22/18 Sex
--- OUTSIDE RECORDS SUMMARY | 2023-12-07 17:02 | XMS_ITS | Continuity of Care Document ---
Author Name Unknown Organization [facility] Adult Address [address] [place] [address]- Care Team Providers Care Back Hanger Name Role Phone Bi Harry Primary Care Physician [phone] [place] [facility] [place] 07/09/[address] [facility] [address] [place] [address]- [facility] Encounter Diagnosis Physical exam(Discharge Diagnosis) - 07/04/20 Schizoaffective disorder(Discharge Diagnosis) - 07/04/20 Drug abuse(Discharge Diagnosis) - 07/04/20 Attending Physician: Bi Harry Allergies, Adverse Reactions, Alerts Substance Reaction Severity Status amoxicillin Active Immunizations Given and Recorded Vaccine Date Status Refusal Reason tetanus/diphtheria/pertussis, acel(Tdap) 1 01/06/19 Given Not Given Vaccine Date Status Refusal Reason influenza virus vaccine, inactivated 03/09/19 Not Given Patient Refuses pneumococcal 23-valent vaccine 03/09/19 Not Given Patient Refuses 1Result Comment: [01/06/2019] [id number] Medications Invega Sustenna 117 mg/0.75 mL intramuscular suspension, extended release = 117 mg, Intramuscular, Every 28 days, administer IM on June 20, 2020, # 0.75 mL, 0 Refills, Maintenance, 06/09/20 18:07:00 EDT, [facility], 170, cm, 06/09/20 16:31:00 EDT, Height, 61.5, kg, 06/09/20 16:31:00 EDT, Dry Weight Start Date: 06/09/20 Status: Ordered Problem List Condition Effective Dates Status Health Status Inform ant Autism spectrum(Confirmed) Active Excessive daytime sleepiness(Confirmed) Active Depersonalization disorder(Confirmed) Active Hyperprolactinemia(Confirmed) Active Narcolepsy(Confirmed) Active Schizoaffective disorder(Confirmed) Active Diagnosis Diagnosis Type Effective Dates Health Status Clinical Service Informant Physical exam Discharge Diagnosis 07/04/20 Schizoaffective disorder Discharge Diagnosis 07/04/20 Drug abuse Discharge Diagnosis 07/04/20 Vital Signs Most recent to oldest [Reference Range]: 1 Height 171.50 cm (07/02/20 10:49 AM) Weight 66.5 kg (07/02/20 10:49 AM) Oxygen Saturation [94-100 %] 99 % (07/02/20 10:49 AM) Pulse Rate [55-90 bpm] 62 bpm (07/02/20 10:49 AM) Body Mass Index [18.5-24.99] 22.61 (07/02/20 10:49 AM) Blood Pressure [90-138/55-84 mm Hg] 110/ 82mm Hg (07/02/20 10:49 AM) Blood pressure sites Arm, left (07/02/20 10:49 AM) Social History Social History Type Response Smoking Status Never smoker entered on: 03/22/18 Sex
--- OUTSIDE RECORDS SUMMARY | 2023-12-07 17:02 | XMS_ITS | Continuity of Care Document ---
Author Name Unknown Organization [facility] Address Unknown Care Team Providers Care Conditioner Tender Name Role Phone Bi Harry Primary Care Physician Encounter [facility] Date(s): 12/27/21 - 01/26/22 [facility] Allergies, Adverse Reactions, Alerts No Known Allergies Immunizations Given and Recorded Vaccine Date Status Refusal Reason tetanus/diphtheria/pertussis, acel(Tdap) 1 01/06/19 Given Measles/Mumps/Rubella Virus Vaccine 08/19/86 Recor ded Not Given Vaccine Date Status Refusal Reason pneumococcal 23-valent vaccine 03/09/19 Not Given Patient Refuses influenza virus vaccine, inactivated 03/09/19 Not Given Patient Refuses 1Result Comment: [01/06/2019] [id number] Medications Aristada 882 mg/3.2 mL intramuscular suspension, extended release = 882 mg, Intramuscular, Every 28 days, Next dose due 05/02/21, # 1 each, 1 Refills, Maintenance, 04/11/21 8:05:00 EDT, [facility], Partial fill upon patient request if the prescription isfor a schedule II opioid drug., 170, cm, 04/10/21 2... Start Date: 04/11/21 Status: Ordered divalproex sodium 500 mg oral tablet, extended release 4 tablet = 2,000 mg, By Mouth, Daily at bedtime, # 120 tablet, 1 Refills, Maintenance, 04/11/21 8:00:00 EDT, ER Tablet, [facility], Partial fill upon patient request if the prescription is for a schedule II opioid drug., 170, cm, 04/10/21... Start Date: 04/11/21 Status: Ordered folic acid 1 mg oral tablet 1 mg, 1, tablet, By Mouth, Daily, # 30 tablet, Refills 1, Tot. Refills 1, Maintenance, 04/11/21 8:00:00 EDT, Route to Pharmacy Electronically, [facility], Partial fill upon patient request if the prescription is for a schedule II opioid d... Start Date: 04/11/21 Status: Ordered multivitamin with minerals Multiple Vitamins with Minerals oral tablet 1 tablet, By Mouth, Daily, # 30 tablet, 1 Refills, Maintenance, 04/11/21 8:02:00 EDT, Tablet, [facility], Partial fill upon patient request if the prescription is for a schedule II opioid drug., 1 tablet By Mouth Daily, 170, cm, 04/10/21... Start Date: 04/11/21 Status: Ordered olanzapine 15 mg oral tablet 1 tablet = 15 mg, By Mouth, Daily at bedtime, # 30 tablet, 1 Refills, Maintenance, 04/11/21 8:02:00EDT, Tablet, [facility], Partial fill upon patient request if the prescription is for a schedule II opioid drug., 170, cm, 04/10/21 20:33:... Start Date: 04/11/21 Status: Ordered thiamine 100 mg oral tablet 100 mg, 1, tablet, By Mouth, Daily, # 30 tablet, Refills 1, Tot. Refills 1, Maintenance, 04/11/21 8:04:00 EDT, Route to Pharmacy Electronically, [facility], Partial fill upon patient request [...]
--- OUTSIDE RECORDS SUMMARY | 2023-12-07 17:02 | XMS_ITS | Continuity of Care Document ---
Author Name Unknown Organization [facility] Address [address] [place] [address]- Care Team Providers Care Fire Protection Specialist Name Role Phone Not on Staff, PCP Primary Care Physician Unavail able [place] [facility] [place]19 [facility] [address] [place], [place] [address] Attending Physician: Jesica CASTELLANOS, Matt Santiago Allergies, Adverse Reactions, Alerts Substance Reaction Severity Status amoxicillin Active Immunizations Given and Recorded Vaccine Date Status Refusal Reason tetanus/diphtheria/pertussis, acel(Tdap) 1 01/06/19 Given Not Given Vaccine Date Status Refusal Reason influenza virus vaccine, inactivated 03/09/19 Not Given Patient Refuses pneumococcal 23-valent vaccine 03/09/19 Not Given Patient Refuses 1Result Comment: [01/06/2019] [id number] Medications Abilify 20 mg oral tablet 1 tablet = 20 mg, By Mouth, Daily at bedtime, # 60 tablet, 1 Refills, Maintenance, 11/18/19 8:44:00EST, Tablet, [facility], 170, cm, 11/18/19 8:08:00 [...]
--- OUTSIDE RECORDS SUMMARY | 2023-12-07 17:02 | XMS_ITS | Continuity of Care Document ---
Author Name Unknown Organization [facility] Address [address] [place] [address]- Care Team Providers Care Skidway Worker Name Role Phone Jesica CASTELLANOS, Matt Santiago Primary Care Physician [place] [facility] [place] 11/13/[place] - 11/23/19 [facility] [address] [place] [address]- [facility] Attending Physician: Austin Sher Admitting Physician: AdmtrAustin Referring Physician: Admtr, Ar8 Allergies, Adverse Reactions, Alerts Substance Reaction Severity Status clindamycin Active
--- OUTSIDE RECORDS SUMMARY | 2023-12-07 17:02 | XMS_ITS | Continuity of Care Document ---
Author Name Unknown Organization [facility] Address Unknown Care Team Providers Care Riveting Machine Operator Name Role Phone Bi Harry Primary Care Physician Encounter [facility] Date(s): 02/03/22 - 03/05/22 [facility] Allergies, Adverse Reactions, Alerts No Known [...] Not Given Patient Refuses 1Result Comment: [01/06/2019] [id number] Problem List Condition Effective Dates Status Health [...]
--- OUTSIDE RECORDS SUMMARY | 2023-12-07 17:02 | XMS_ITS | Continuity of Care Document ---
Author Name Unknown Organization [facility] Address [address] [place] [address]- Care Team Providers Care Title Insurance Sales Representative Name Role Phone Bi Harry Primary Care Physician [place] [facility] [place]24/[address] [facility] [address] [place] [address]- Attending Physician: Bi Harry Allergies, Adverse Reactions, Alerts Substance Reaction Severity Status clindamycin Active amoxicillin Active Immunizations Given and Recorded Vaccine Date Status Refusal Reason tetanus/diphtheria/pertussis, acel(Tdap) 1 01/06/19 Given Not Given Vaccine Date Status Refusal Reason pneumococcal 23-valent vaccine 03/09/19 Not Given Patient Refuses influenza virus vaccine, inactivated 03/09/19 Not Given Patient Refuses 1Result Comment: [01/06/2019] [id number] Medications Aristada 882 mg/3.2 mL intramuscular suspension, extended release = 882 mg, Intramuscular, Every 28 days, Next dose due 05/02/21, # 1 each, 1 Refills, Maintenance, 04/11/21 8:05:00 EDT, [facility], Partial fill upon patient request if the prescription isfor a schedule II opioid drug., 170, cm, 04/10/21 2... Start Date: 04/11/21 Status: Ordered divalproex sodium 500 mg oral tablet, extended release 4 tablet = 2,000 mg, By Mouth, Daily at bedtime, # 120 tablet, 1 Refills, Maintenance, 04/11/21 8:00:00 EDT, ER Tablet, [facility], Partial fill upon patient request if the prescription is for a schedule II opioid drug., 170, cm, 04/10/21... Start Date: 04/11/21 Status: Ordered folic acid 1 mg oral tablet 1 mg, 1, tablet, By Mouth, Daily, # 30 tablet, Refills 1, Tot. Refills 1, Maintenance, 04/11/21 8:00:00 EDT, Route to Pharmacy Electronically, [facility], Partial fill upon patient request if the prescription is for a schedule II opioid d... Start Date: 04/11/21 Status: Ordered multivitamin with minerals Multiple Vitamins with Minerals oral tablet 1 tablet, By Mouth, Daily, # 30 tablet, 1 Refills, Maintenance, 04/11/21 8:02:00 EDT, Tablet, [facility], Partial fill upon patient request if the prescription is for a schedule II opioid drug., 1 tablet By Mouth Daily, 170, cm, 04/10/21... Start Date: 04/11/21 Status: Ordered olanzapine 15 mg oral tablet 1 tablet = 15 mg, By Mouth, Daily at bedtime, # 30 tablet, 1 Refills, Maintenance, 04/11/21 8:02:00EDT, Tablet, [facility], Partial fill upon patient request if the prescription is for a schedule II opioid drug., 170, cm, 04/10/21 20:33:... Start Date: 04/11/21 Status: Ordered thiamine 100 mg oral tablet 100 mg, 1, tablet, By Mouth, Daily, # 30 tablet, Refills 1, Tot. Refills 1, Maintenance, 04/11/21 8:04:00 EDT, Route to Pharmacy Electronically, [facility], Partial fill upon patient request [...]
--- OUTSIDE RECORDS SUMMARY | 2023-12-07 17:02 | XMS_ITS | Continuity of Care Document ---
Author Name Unknown Organization [facility] Address [address] [place] [address]- Care Team Providers Care Corporate Driver Name Role Phone Not on Staff, PCP Primary Care Physician Unavail able [place] [facility] [place] 10/30/19 - 12/03/19 [facility] [address] [place] [address]- [facility] Attending Physician: Matt Mooney MD Allergies, Adverse Reactions, Alerts Substance Reaction Severity Status amoxicillin Active Immunizations Given and Recorded Vaccine Date Status Refusal Reason tetanus/diphtheria/pertussis, acel(Tdap) 1 01/06/19 Given Not Given Vaccine Date Status Refusal Reason influenza virus vaccine, inactivated 03/09/19 Not Given Patient Refuses pneumococcal 23-valent vaccine 03/09/19 Not Given Patient Refuses 1Result Comment: [01/06/2019] [id number] Medications Abilify 20 mg oral tablet 1 tablet = 20 mg, By Mouth, Daily at bedtime, # 60 tablet, 1 Refills, Maintenance, 11/18/19 8:44:00EST, Tablet, [facility], 170, cm, 11/18/19 8:08:00 EST, [...]
--- OUTSIDE RECORDS SUMMARY | 2023-12-07 17:02 | XMS_ITS | Continuity of Care Document ---
Author Name Unknown Organization [facility] Address Unknown Care Team Providers Care Electronic Die Maker Name Role Phone Bi Harry Primary Care Physician Encounter [facility] Date(s): 11/28/21 - 12/28/21 [facility] Allergies, Adverse Reactions, Alerts No Known Allergies Immunizations Given and Recorded Vaccine Date Status Refusal Reason tetanus/diphtheria/pertussis, acel(Tdap) 1 01/06/19 Given Measles/Mumps/Rubella Virus Vaccine 08/19/86 Recor ded Not Given Vaccine Date Status Refusal Reason pneumococcal 23-valent vaccine 03/09/19 Not Given Patient Refuses influenza virus vaccine, inactivated 03/09/19 Not Given Patient Refuses 1Result Comment: [01/06/2019] [id number] Medications Aristada 882 mg/3.2 mL intramuscular suspension, extended release = 882 mg, Intramuscular, Every 28 days, Next dose due 05/02/21, # 1 each, 1 Refills, Maintenance, 04/11/21 8:05:00 EDT, [facility], Partial fill upon patient request if the prescription isfor a schedule II opioid drug., 170, cm, 04/10/21 2... Start Date: 04/11/21 Status: Ordered divalproex sodium 500 mg oral tablet, extended release 4 tablet = 2,000 mg, By Mouth, Daily at bedtime, # 120 tablet, 1 Refills, Maintenance, 04/11/21 8:00:00 EDT, ER Tablet, [facility], Partial fill upon patient request if the prescription is for a schedule II opioid drug., 170, cm, 04/10/21... Start Date: 04/11/21 Status: Ordered folic acid 1 mg oral tablet 1 mg, 1, tablet, By Mouth, Daily, # 30 tablet, Refills 1, Tot. Refills 1, Maintenance, 04/11/21 8:00:00 EDT, Route to Pharmacy Electronically, [facility], Partial fill upon patient request if the prescription is for a schedule II opioid d... Start Date: 04/11/21 Status: Ordered multivitamin with minerals Multiple Vitamins with Minerals oral tablet 1 tablet, By Mouth, Daily, # 30 tablet, 1 Refills, Maintenance, 04/11/21 8:02:00 EDT, Tablet, [facility], Partial fill upon patient request if the prescription is for a schedule II opioid drug., 1 tablet By Mouth Daily, 170, cm, 04/10/21... Start Date: 04/11/21 Status: Ordered olanzapine 15 mg oral tablet 1 tablet = 15 mg, By Mouth, Daily at bedtime, # 30 tablet, 1 Refills, Maintenance, 04/11/21 8:02:00EDT, Tablet, [facility], Partial fill upon patient request if the prescription is for a schedule II opioid drug., 170, cm, 04/10/21 20:33:... Start Date: 04/11/21 Status: Ordered thiamine 100 mg oral tablet 100 mg, 1, tablet, By Mouth, Daily, # 30 tablet, Refills 1, Tot. Refills 1, Maintenance, 04/11/21 8:04:00 EDT, Route to Pharmacy Electronically, [facility], Partial fill upon patient request [...]
--- OUTSIDE RECORDS SUMMARY | 2023-12-07 17:02 | XMS_ITS | Continuity of Care Document ---
Author Name Unknown Organization [facility] Address [address] [place] [address]- Care Team Providers Care Knitter Helper Name Role Phone Bi Harry Primary Care Physician Encounter [facility] Date(s): 01/24/21 - 01/31/21 [facility] [address] [place] [address]- Attending Physician: Bi Harry Allergies, Adverse Reactions, Alerts Substance Reaction Severity Status clindamycin Active amoxicillin Active Immunizations Given and Recorded Vaccine Date Status Refusal Reason tetanus/diphtheria/pertussis, acel(Tdap) 1 01/06/19 Given Not Given Vaccine Date Status Refusal Reason pneumococcal 23-valent vaccine 03/09/19 Not Given Patient Refuses influenza virus vaccine, inactivated 03/09/19 Not Given Patient Refuses 1Result Comment: [01/06/2019] [id number] Medications Abilify Maintena Inj Intramuscular, Every 28 days, Refills 0, Maintenance, 01/28/21 10:50:00 EST, Partial fill upon patient request if the prescription is for a schedule II opioid drug. Start Date: 01/28/21 Status: Ordered Aristada 882 mg/3.2 mL intramuscular suspension, extended release = 882 mg, Intramuscular, Every 28 days, Next due 02/16/21, # 1 each, 0 Refills, Maintenance, 01/21/21 9:11:00 EST, [facility] Partial fill upon patient request if the prescription is for a schedule II opioid drug., 169, cm, 02... Start Date: 01/21/21 Status: Ordered benztropine 1 mg oral tablet 1 mg, 1, tablet, By Mouth, 2 times a day, # 60 tablet, Refills 0, Tot. Refills 0, Maintenance, 01/21/21 9:08:00 EST, Route to Pharmacy Electronically, [facility], Partial fill upon patient request if the prescription is for a schedule II... Start Date: 01/21/21 Status: Ordered divalproex sodium 500 mg oral enteric coated tablet See Instructions, 1 tablet by mouth daily in the morning and 3 tablets by mouth daily at bedtime, #120 tablet, 0 Refills, Maintenance, 01/21/21 9:07:00 EST, Tablet, [facility], Partialfill upon patient request if the prescription is fo... Start Date: 01/21/21 Status: Ordered folic acid 1 mg oral tablet 1 mg, 1, tablet, By Mouth, Daily, # 30 tablet, Refills 0, Tot. Refills 0, Maintenance, 01/21/21 9:08:00 EST, Route to Pharmacy Electronically, [facility], Partial fill upon patient request if the prescription is for a schedule II opioid... Start Date: 01/21/21 Status: Ordered melatonin 10 mg oral tablet 1 tablet = 10 mg, By Mouth, Daily at bedtime, # 30 tablet, 0 Refills, Maintenance, 01/21/21 9:08:00EST, Tablet, [facility], Partial fill upon patient request if the prescription is fora schedule II opioid drug., 169, cm, 01/21/21 8:56:... Start Date: 01/21/21 Status: Ordered olanzapine 15 mg oral tablet 1 tablet = 15 mg, By Mouth, Daily at bedtime, # 30 tablet, 0 Refills, Maintenance, 01/21/21 9:08:00EST, Tablet, [facility], Partial fill upon patient request if the prescription is fora schedule II opioid drug., 169, cm, 01/21/21 8:56:... Start Date: 01/21/21 Status: Ordered thiamine 100 mg oral tablet 100 mg, 1, tablet, By Mouth, 2 times a day, # 60 tablet, Refills 0, Tot. Refills 0, Maintenance, 01/21/21 9:08:00 EST, Route to Pharmacy Electronically, [facility], Partial fill upon patient [...]
--- OUTSIDE RECORDS SUMMARY | 2023-12-07 17:02 | XMS_ITS | Continuity of Care Document ---
Author Name Unknown Organization [facility] ter Address [address] [place] [address]- Care Team Providers Care Academy Education Director Name Role Phone Bhargav Harry Primary Care Physician [phone] [place] [facility] [place] 12/16/20 - 12/19/[address] [address]- Encounter Diagnosis Altered mental state(Final) - 12/17/20 Discharge Disposition: A-D/C Home Attending Physician: Rolly Aquino MD Admitting Physician: Lisette Jurado MD Referring Physician: Not on Staff, Referring MD Allergies, Adverse Reactions, Alerts Substance Reaction Severity Status NKA Active Medications divalproex sodium 500 mg oral enteric coated tablet TAKE 1 TAB BY MOUTH 2 TIMES A DAY Start Date: 12/18/20 Status: Ordered divalproex sodium 500 mg oral enteric coated tablet = 500 mg, By Mouth, 2 times a day, # 60 tablet, 0 Refills, Maintenance, 12/19/20 12:14:00 EST, Tablet, [facility], Partial fill upon patient request if the prescription is for a schedule II opioid drug., 62.9, kg, 12/17/20 23:59:00 EST,... Start Date: 12/19/20 Status: Ordered folic acid 1 mg oral tablet 1 mg, 1, tablet, By Mouth, Daily, # 30 tablet, Refills 0, Tot. Refills 0, Maintenance, 12/19/20 12:13:00 EST, Route to Pharmacy Electronically, [facility], Partial fill upon patient request if the prescription is for a schedule II opioid... Start Date: 12/19/20 Status: Ordered pyridoxine 100 mg oral tablet 0.5 tablet = 50 mg, By Mouth, Daily, # 30 tablet, 0 Refills, Maintenance, 12/19/20 12:13:00 EST, Tablet, [facility], Partial fill upon patient request if the prescription is for a schedule II opioid drug., 62.9, kg, 12/17/20 23:59:00 EST... Start Date: 12/19/20 Status: Ordered risperiDONE 1 mg oral tablet 1 mg, 1, tablet, By Mouth, 2 times a day, # 60 tablet, Refills 0, Tot. Refills 0, Maintenance, 12/19/20 12:14:00 EST, Route to Pharmacy Electronically, [facility], Partial fill upon patient request if the prescription is for a schedule I... Start Date: 12/19/20 Status: Ordered thiamine 100 mg oral tablet 100 mg, 1, tablet, By Mouth, 2 times a day, # 100 tablet, Refills 0, Tot. Refills 0, Maintenance, 12/19/20 12:14:00 EST, Route to Pharmacy Electronically, [facility], Partial fill upon patient request if the prescription is for a schedul... Start Date: 12/19/20 Status: Ordered Problem List Condition Effective Dates Status Health Status Inform ant Autism spectrum disorder(Confirmed) Active Bipolar disorder(Confirmed) Active OCD (obsessive compulsive disorder)(Confirmed) Active Polysubstance abuse(Confirmed) Active Schizoaffective disorder(Confirmed) Active Results Radiology Reports * Exam Date Time Procedure Performing Provider Status 12/17/20 3:05 PM Esophagus Barium Swallow Thuy Samson; Auth (Verified) Notes: (Esophagus Barium Swallow) Reason For Exam: pneumomediastinum in CT, concer for perforation;Swallowing Problems RESULT: Esophagus Barium Swallow Esophagus Barium Swallow Reason: pneumomediastinum in CT, concern for perforation; COMPARISONS: CT chest with contrast from day prior, chest radiograph from earlier today. FLUOROSCOPY TIME: 0.8 minutes DAP: 704.2 TECHNIQUE: Isovue 300 and barium contrast esophagrams were performed. FINDINGS: Staffing Operations Manager view: No free air. Normal bowel gas pattern. No abnormal calcifications. Swallow: Initial swallow demonstrates no laryngeal penetration or aspiration. Normal oral and pharyngeal phase. Esophagus: Normal in contour and mucosal appearance. Normal motility, with prompt emptying into thestomach. No hiatal hernia seen. No evidence of extravasation of contrast from the esophagus. The stomach and proximal duodenum are grossly normal.. IMPRESSION: No evidence of esophageal leak. I have personally reviewed the images and I agree with this report. WSN: [id number] Ordering Physician: Irena Morris Dictated By: Caity Guzman MD Dictated Date/Time: 12/17/20 3:12 pm Reviewed By: Chencho Almeida MD Signed By: Chencho Almeida MD Signed Date/Time: 12/17/20 3:17 pm Transcribed By: NORBERTO Transcribed Date/Time: 12/17/20 3:09 pm * Exam Date Time Procedure Performing Provider Status 12/17/20 5:54 AM Chest Portable Ezequiel Valencia; Auth ( Verified) Notes: (Chest Portable) Reason For Exam: Other: RESULT: Chest Portable AP portable chest, INDICATION: Reason: Other:; Clinical Question(s): Pneumothorax; follow up pnx COMPARISON: yesterday CXR FINDINGS: LINES AND TUBES: Endotracheal tube is 5 cm above the héctor. NG tube ends in the stomach. LUNGS AND PLEURA AND MEDIASTINUM: There is no pneumothorax or pleural effusion. Heart size is normal. No focal infiltrate. IMPRESSION: Interval improvement. Clear lungs. WSN: [id number] Ordering Physician: Tiffani Trejo Dictated By: Pat Ramírez MD Dictated Date/Time: 12/17/20 8:58 am Reviewed By: Pat Ramírez MD Signed By: Pat Ramírez MD Signed Date/Time: 12/17/20 8:58 am Transcribed By: NORBERTO Transcribed Date/Time: 12/17/20 8:56 am * Exam Date Time Procedure Performing Provider Status 12/16/20 4:48 PM Chest Portable Zackery Remy; Auth (Verified) Notes: (Chest Portable) Reason For Exam: Pain;Other: RESULT: Chest Portable Chest Portable INDICATION: Reason: Other:; Pain; Clinical Question(s): Other:; Fracture, pneumothorax, pulmonary contusion COMPARISON: None. FINDINGS: LINES AND TUBES: There is an endotracheal tube terminating 3.2 cm above the héctor. An enterogastric tube is also present, its tip is outside the field of view, beyond the mid stomach. LUNGS AND PLEURA: There is hazy opacity throughout the left lung. The right lung appears clear. There is no appreciable pneumothorax. There is no effusion. HEART, MEDIASTINUM AND KASHIF: Normal. BONES AND SOFT TISSUES: There may be a displaced fracture of the left eighth rib at the costovertebral junction and in the posterior lateral region. IMPRESSION: Findings highly suggestive of a displaced fracture of the left eighth rib as described. Left lung haziness probably representing lung contusion in the right clinical setting. No definite pneumothorax. Support tubes as described. A [employer] message has been communicated via the [employer] system on 12/16/2020 4:54 PM, Message ID [id number]. WSN: [id number] Ordering Physician: Bhargav Angel Dictated By: Kelly Maynard MD Dictated Date/Time: 12/16/20 4:54 pm Reviewed By: Kelly Maynard MD Signed By: Kelly Manyard MD Signed Date/Time: 12/16/20 4:54 pm Transcribed By: NORBERTO Transcribed Date/Time: 12/16/20 4:49 pm Vital Signs Most recent to oldest [Reference Range]: 1 2 3 Weight 62.9 kg (12/17/20 11:59 PM) 62.4 kg (12/16/20 9:11 PM) Oxygen Saturation [94-100 %] 100 % (12/19/20 10:43 AM) 99 % (12/19/20 7:51 AM) 100 % (12/19/20 5:04 AM) Pulse Rate [55-90 bpm] 64 bpm (12/19/20 10:43 AM) 51 bpm *L* (12/19/20 7:51 AM) 75 bpm (12/19/20 5:04 AM) Blood Pressure [90-138/55-84 mm Hg] 136/77mm Hg (12/19/20 10:43 AM) 127/78mm Hg (12/19/20 7:51 AM) 134/74mm Hg (12/19/20 5:04 AM) Respiratory Rate [16-30 br/min] 12 br/min *L* (12/19/20 10:43 AM) 13 br/min *L* (12/19/20 7:51 AM) 16 br/min (12/19/20 5:04 AM) Temperature [96.8-100.4 DegF] 97.8 DegF (12/19/20 10:43 AM) 97.3 DegF (12/19/20 7:51 AM) 98.1 DegF (12/19/20 5:04 AM) Liters per Minute 0 L/min (12/19/20 10:43 AM) 0 L/min (12/19/20 7:51 AM) 0 L/min (12/18/20 4:00 PM) Mode of Delivery (Oxygen) Room air (12/19/20 10:43 AM) Room air (12/19/20 7:51 AM) Room air (12/19/20 5:04 AM) Blood pressure sites Arm, left (12/19/20 10:43 AM) Arm, left (12/19/20 7:51 AM) Arm, right (12/19/20 5:04 AM) Temperature Route Temporal (12/19/20 10:43 AM) Temporal (12/19/20 7:51 AM) Femoral (12/19/20 5:04 AM) Dry Weight 62.9 kg (12/17/20 11:59 PM) 70 kg (12/16/20 6:20 PM) Weight Obtained Via Bed scale (12/17/20 11:59 PM) Bed scale (12/16/20 9:11 PM) Dry Weight Obtained Via Bed scale (12/17/20 11:59 PM)
--- OUTSIDE RECORDS SUMMARY | 2023-12-07 17:02 | XMS_ITS | Continuity of Care Document ---
Author Name Unknown Organization [facility] ter Address [address] [place] [id number]- Care Team Providers Care Sleeping Car Conductor Name Role Phone Bi Harry Primary Care Physician Encounter [facility] [place] Date(s): 02/03/21 - 02/04/[address] [address]- Encounter Diagnosis Agitation(Final) - 02/03/21 Acute drug intoxication(Final) - 02/03/21 Discharge Disposition: A-D/C Home Attending Physician: Adelia Lei MD Admitting Physician: Adelia Lei MD Referring Physician: [...] Not Given Patient Refuses 1Result Comment: [01/06/2019] [id number] Medications Abilify Maintena Inj Intramuscular, Every 28 days, Refills 0, Maintenance, 01/28/21 10:50:00 EST, Partial fill upon patient request if the prescription is for a schedule II opioid drug. Start Date: 01/28/21 Status: Ordered Aristada 882 mg/3.2 mL intramuscular suspension, extended release = 882 mg, Intramuscular, Every 28 days, Next due 02/16/21, # 1 each, 0 Refills, Maintenance, 01/21/21 9:11:00 EST, [facility]-, Partial fill upon patient request if the prescription is for a schedule II opioid drug., 169, cm, 02... Start Date: 01/21/21 Status: Ordered benztropine 1 mg oral tablet 1 mg, 1, tablet, By Mouth, 2 times a day, # 60 tablet, Refills 0, Tot. Refills 0, Maintenance, 02/04/21 15:06:00 EST, [id number] Partial fill upon patient request if the prescription is for a schedule II opio... Start Date: 02/04/21 Status: Ordered benztropine 1 mg oral tablet 1 mg, 1, tablet, By Mouth, 2 times a day, # 60 tablet, Refills 0, Tot. Refills 0, Maintenance, 01/21/21 9:08:00 EST, Route to Pharmacy Electronically, [facility], Partial fill upon patient request if the prescription is for a schedule II... Start Date: 01/21/21 Status: Ordered divalproex sodium 500 mg oral enteric coated tablet See Instructions, 1 tablet by mouth daily in the morning and 3 tablets by mouth daily at bedtime, #120 tablet, 0 Refills, Maintenance, 02/04/21 15:06:00 EST, Tablet, [facility]/pharmacy #[id number], Partial fillupon patient request if the prescription is for a s... Start Date: 02/04/21 Status: Ordered folic acid 1 mg oral tablet 1 mg, 1, tablet, By Mouth, Daily, # 30 tablet, Refills 0, Tot. Refills 0, Maintenance, 01/21/21 9:08:00 EST, Route to Pharmacy Electronically, [facility], Partial fill upon patient request if the prescription is for a schedule II opioid... Start Date: 01/21/21 Status: Ordered melatonin 10 mg oral tablet 1 tablet = 10 mg, By Mouth, Daily at bedtime, # 30 tablet, 0 Refills, Maintenance, 01/21/21 9:08:00EST, Tablet, [facility], Partial fill upon patient request if the prescription is fora schedule II opioid drug., 169, cm, 01/21/21 8:56:... Start Date: 01/21/21 Status: Ordered olanzapine 15 mg oral tablet 1 tablet = 15 mg, By Mouth, Daily, # 30 tablet, 0 Refills, Maintenance, 02/04/21 15:05:00 EST, Tablet, [facility]/pharmacy #[id number], Partial fill upon patient request if the prescription is for a schedule II opioid drug., 169, cm, 01/28/21 10:48:00 EST, Height,... Start Date: 02/04/21 Status: Ordered olanzapine 15 mg oral tablet 1 tablet = 15 mg, By Mouth, Daily at bedtime, # 30 tablet, 0 Refills, Maintenance, 01/21/21 9:08:00EST, Tablet, [facility], Partial fill upon patient request if the prescription is fora schedule II opioid drug., 169, cm, 01/21/21 8:56:... Start Date: 01/21/21 Status: Ordered thiamine 100 mg oral tablet 100 mg, 1, tablet, By Mouth, 2 times a day, # 60 tablet, Refills 0, Tot. Refills 0, Maintenance, 01/21/21 9:08:00 EST, Route to Pharmacy Electronically, [facility], Partial fill upon patient request if [...] 1 2 3 Oxygen Saturation [94-100 %] 97 % (02/04/21 5:05 PM) 96 % (02/04/21 6:14 AM) 98 % (02/03/21 9:11 PM) Pulse Rate [55-90 bpm] 72 bpm (02/04/21 6:14 AM) 54 bpm *L* (02/03/21 9:11 PM) 55 bpm (02/03/21 7:24 PM) Blood Pressure [90-138/55-84 mm Hg] 101/50mm Hg (02/04/21 5:05 PM) 113/61mm Hg (02/04/21 6:14 AM) 121/84mm Hg (02/03/21 9:11 PM) Respiratory Rate [16-30 br/min] 16 br/min (02/04/21 5:05 PM) 15 br/min *L* (02/04/21 6:14 AM) 16 br/min (02/03/21 9:11 PM) Temperature [96.8-100.4 DegF] 57 DegF *L* (02/04/21 5:05 PM) 98.0 DegF (02/04/21 6:14 AM) 98.1 DegF (02/03/21 3:46 PM) Mode of Delivery (Oxygen) Room air (02/04/21 5:05 PM) Room air (02/04/21 6:14 AM) Room air (02/03/21 9:11 PM) Blood pressure sites Arm, left (02/04/21 5:05 PM) Temperature Route Oral (02/04/21 6:14 AM) Oral (02/03/21 3:46 PM) Social History Social History Type Response Smoking Status Never smoker entered on: 03/22/18 Sex Male
--- OUTSIDE RECORDS SUMMARY | 2023-12-07 17:02 | XMS_ITS | Continuity of Care Document ---
Author Name Unknown Organization [facility] Adult Address [address] [place] [address]- Care Team Providers Care Sales Representative Livestock Name Role Phone Bi Harry Primary Care Physician Encounter [facility] [place] Date(s): 04/19/21 - 05/19/21 [facility] [address] [place] [address]- Allergies, Adverse Reactions, Alerts Substance Reaction Severity Status clindamycin Active amoxicillin Active Immunizations Given and Recorded Vaccine Date Status Refusal Reason tetanus/diphtheria/pertussis, acel(Tdap) 1 01/06/19 Given Not Given Vaccine Date Status Refusal Reason pneumococcal 23-valent vaccine 03/09/19 Not Given Patient Refuses influenza virus vaccine, inactivated 03/09/19 Not Given Patient Refuses 1Result Comment: [01/06/2019] [id number] Medications Aristada 882 mg/3.2 mL intramuscular suspension, extended release = 882 mg, Intramuscular, Every 28 days, Next dose due 05/02/21, # 1 each, 1 Refills, Maintenance, 04/11/21 8:05:00 EDT, [facility], Partial fill upon patient request if the prescription isfor a schedule II opioid drug., 170, cm, 04/10/21 2... Start Date: 04/11/21 Status: Ordered divalproex sodium 500 mg oral tablet, extended release 4 tablet = 2,000 mg, By Mouth, Daily at bedtime, # 120 tablet, 1 Refills, Maintenance, 04/11/21 8:00:00 EDT, ER Tablet, [facility], Partial fill upon patient request if the prescription is for a schedule II opioid drug., 170, cm, 04/10/21... Start Date: 04/11/21 Status: Ordered folic acid 1 mg oral tablet 1 mg, 1, tablet, By Mouth, Daily, # 30 tablet, Refills 1, Tot. Refills 1, Maintenance, 04/11/21 8:00:00 EDT, Route to Pharmacy Electronically, [facility], Partial fill upon patient request if the prescription is for a schedule II opioid d... Start Date: 04/11/21 Status: Ordered multivitamin with minerals Multiple Vitamins with Minerals oral tablet 1 tablet, By Mouth, Daily, # 30 tablet, 1 Refills, Maintenance, 04/11/21 8:02:00 EDT, Tablet, [facility], Partial fill upon patient request if the prescription is for a schedule II opioid drug., 1 tablet By Mouth Daily, 170, cm, 04/10/21... Start Date: 04/11/21 Status: Ordered olanzapine 15 mg oral tablet 1 tablet = 15 mg, By Mouth, Daily at bedtime, # 30 tablet, 1 Refills, Maintenance, 04/11/21 8:02:00EDT, Tablet, [facility], Partial fill upon patient request if the prescription is for a schedule II opioid drug., 170, cm, 04/10/21 20:33:... Start Date: 04/11/21 Status: Ordered thiamine 100 mg oral tablet 100 mg, 1, tablet, By Mouth, Daily, # 30 tablet, Refills 1, Tot. Refills 1, Maintenance, 04/11/21 8:04:00 EDT, Route to Pharmacy Electronically, [facility], Partial fill upon patient request [...]
--- OUTSIDE RECORDS SUMMARY | 2023-12-07 17:02 | XMS_ITS | Continuity of Care Document ---
Author Name Unknown Organization [facility] Adult Address [address] [place] [address]- Care Team Providers Care Merchandise Distributor Name Role Phone Bi Harry Primary Care Physician [phone] Encounter [facility] Date(s): 10/08/20 - 02/05/21 [facility] [address] [place] [address]- Attending Physician: Bi Harry Allergies, Adverse Reactions, Alerts Substance Reaction Severity Status clindamycin Active amoxicillin Active Immunizations Given and Recorded Vaccine Date Status Refusal Reason tetanus/diphtheria/pertussis, acel(Tdap) 1 01/06/19 Given Not Given Vaccine Date Status Refusal Reason pneumococcal 23-valent vaccine 03/09/19 Not Given Patient Refuses influenza virus vaccine, inactivated 03/09/19 Not Given Patient Refuses 1Result Comment: [01/06/2019] [id number] Medications Abilify Maintena Inj Intramuscular, Every 28 days, Refills 0, Maintenance, 01/28/21 10:50:00 EST, Partial fill upon patient request if the prescription is for a schedule II opioid drug. Start Date: 01/28/21 Status: Ordered Aristada 882 mg/3.2 mL intramuscular suspension, extended release = 882 mg, Intramuscular, Every 28 days, Next due 02/16/21, # 1 each, 0 Refills, Maintenance, 01/21/21 9:11:00 EST, [facility]-, Partial fill upon patient request if the prescription is for a schedule II opioid drug., 169, cm, 02... Start Date: 01/21/21 Status: Ordered benztropine 1 mg oral tablet 1 mg, 1, tablet, By Mouth, 2 times a day, # 60 tablet, Refills 0, Tot. Refills 0, Maintenance, 02/04/21 15:06:00 EST, Route to Pharmacy Electronically, [facility]acy #[id number], Partial fill upon patient request if the prescription is for a schedule II opio... Start Date: 02/04/21 Status: Ordered benztropine 1 mg oral tablet 1 mg, 1, tablet, By Mouth, 2 times a day, # 60 tablet, Refills 0, Tot. Refills 0, Maintenance, 01/21/21 9:08:00 EST, Route to Pharmacy Electronically, [facility], Partial fill upon patient request if the prescription is for a schedule II... Start Date: 01/21/21 Status: Ordered divalproex sodium 500 mg oral enteric coated tablet See Instructions, 1 tablet by mouth daily in the morning and 3 tablets by mouth daily at bedtime, #120 tablet, 0 Refills, Maintenance, 02/04/21 15:06:00 EST, Tablet, [facility]/pharmacy #[id number], Partial fillupon patient request if the prescription is for a s... Start Date: 02/04/21 Status: Ordered folic acid 1 mg oral tablet 1 mg, 1, tablet, By Mouth, Daily, # 30 tablet, Refills 0, Tot. Refills 0, Maintenance, 01/21/21 9:08:00 EST, Route to Pharmacy Electronically, [facility], Partial fill upon patient request if the prescription is for a schedule II opioid... Start Date: 01/21/21 Status: Ordered melatonin 10 mg oral tablet 1 tablet = 10 mg, By Mouth, Daily at bedtime, # 30 tablet, 0 Refills, Maintenance, 01/21/21 9:08:00EST, Tablet, [facility], Partial fill upon patient request if the prescription is fora schedule II opioid drug., 169, cm, 01/21/21 8:56:... Start Date: 01/21/21 Status: Ordered olanzapine 15 mg oral tablet 1 tablet = 15 mg, By Mouth, Daily, # 30 tablet, 0 Refills, Maintenance, 02/04/21 15:05:00 EST, Tablet, [facility]acy #[id number], Partial fill upon patient request if the prescription is for a schedule II opioid drug., 169, cm, 01/28/21 10:48:00 EST, Height,... Start Date: 02/04/21 Status: Ordered olanzapine 15 mg oral tablet 1 tablet = 15 mg, By Mouth, Daily at bedtime, # 30 tablet, 0 Refills, Maintenance, 01/21/21 9:08:00EST, Tablet, [facility], Partial fill upon patient request if the prescription is fora schedule II opioid drug., 169, cm, 01/21/21 8:56:... Start Date: 01/21/21 Status: Ordered thiamine 100 mg oral tablet 100 mg, 1, tablet, By Mouth, 2 times a day, # 60 tablet, Refills 0, Tot. Refills 0, Maintenance, 01/21/21 9:08:00 EST, Route to Pharmacy Electronically, [facility], Partial fill upon [...]
--- OUTSIDE RECORDS SUMMARY | 2023-12-07 17:02 | XMS_ITS | Continuity of Care Document ---
Author Name Unknown Organization [facility] ter Address [address] [place] [address]- Care Team Providers Care Thread Twister Name Role Phone Bhargav Harry Primary Care Physician [phone] [id number] Date(s): 02/18/22 - 02/22/[address] [address]- Discharge Disposition: A-D/C Home Attending Physician: Ansley Lakhani MD Admitting Physician: Ade Nagel MD Referring Physician: Not on Staff, Referring [...] Not Given Patient Refuses 1Result Comment: [01/06/2019] [id number] Medications No Known Medications Problem List Condition Effective Dates Status Health Status Inform ant Autism spectrum(Confirmed) Active Autism spectrum disorder(Confirmed) Active Bipolar disorder(Confirmed) Active Excessive daytime sleepiness(Confirmed) Active Depersonalization disorder(Confirmed) Active Hyperprolactinemia(Confirmed) Active Narcolepsy(Confirmed) Active Obese class I(Confirmed) Active OCD (obsessive compulsive disorder)(Confirmed) Active Polysubstance abuse(Confirmed) Active Schizoaffective(Confirmed) Active Schizoaffective disorder(Confirmed) Active Schizoaffective disorder(Confirmed) Active Results Radiology Reports * Exam Date Time Procedure Performing Provider Status 02/18/22 3:26 PM Chest Portable Ezequiel Zepeda; Auth (Ve rified) Notes: (Chest Portable) Reason For Exam: Vomited. WBC 15;Other: RESULT: Chest Portable Chest Portable Reason: Other:; Vomited. WBC 15; Clinical Question(s): Pneumonia COMPARISON: None. FINDINGS: LINES AND TUBES: None. LUNGS AND PLEURA: Clear lungs. Normal pulmonary vascularity. No pleural effusion. No pneumothorax. HEART, MEDIASTINUM AND KASHIF: Heart is normal in size. Normal upper mediastinal and hilar contour. BONES AND SOFT TISSUES: Normal. IMPRESSION: Normal. WSN: [id number] Ordering Physician: Davie Castelan Dictated By: Jesse Thomas MD Dictated Date/Time: 02/18/22 3:27 pm Reviewed By: Jesse Thomas MD Signed By: Jesse Thomas MD Signed Date/Time: 02/18/22 3:27 pm Transcribed By: NORBERTO Transcribed Date/Time: 02/18/22 3:27 pm Vital Signs Most recent to oldest [Reference Range]: 1 2 3 Height 152.4 cm (02/21/22 3:30 AM) 152.4 cm (02/20/22 4:36 PM) 152.4 cm (02/20/22 7:57 AM) Weight 71.5 kg (02/18/22 11:38 AM) Oxygen Saturation [94-100 %] 93 % *L* (02/22/22 8:00 AM) 96 % (02/21/22 7:00 PM) 98 % (02/21/22 4:00 PM) Pulse Rate [55-90 bpm] 50 bpm *L* (02/22/22 8:00 AM) 55 bpm (02/22/22 4:00 AM) 61 bpm (02/21/22 7:00 PM) Body Mass Index [18.5-24.99] 30.78 *>HHI* (02/18/22 11:38 AM) Blood Pressure [90-138/55-84 mm Hg] 128/69mm Hg (02/22/22 8:00 AM) 119/63mm Hg (02/21/22 7:00 PM) 115/72mm Hg (02/21/22 4:00 PM) Respiratory Rate [16-30 br/min] 18 br/min (02/22/22 8:00 AM) 16 br/min (02/22/22 4:00 AM) 18 br/min (02/21/22 7:00 PM) Temperature [96.8-100.4 DegF] 97.5 DegF (02/22/22 8:00 AM) 97.6 DegF (02/22/22 4:00 AM) 97.6 DegF (02/21/22 7:00 PM) Liters per Minute 2 L/min (02/18/22 5:09 PM) 2 L/min (02/18/22 12:44 PM) 2 L/min (02/18/22 11:38 AM) Mode of Delivery (Oxygen) Room air (02/22/22 8:00 AM) Room air (02/21/22 7:00 PM) Room air (02/21/22 4:00 PM) Blood pressure sites Arm, left (02/22/22 8:00 AM) Arm, left (02/21/22 7:00 PM) Arm, left (02/21/22 4:00 PM) Temperature Route Oral (02/22/22 8:00 AM) Oral (02/22/22 4:00 AM) Oral (02/21/22 7:00 PM) Dry Weight 71.5 kg (02/18/22 11:38 AM) Social History Social History Type Response Smoking Status Never smoker entered on: 03/22/18 Sex
--- OUTSIDE RECORDS SUMMARY | 2023-12-07 17:02 | XMS_ITS | Continuity of Care Document ---
Author Name Unknown Organization [facility] Adult Address Unknown Care Team Providers Care Technical Designer Name Role Phone Bi Harry Primary Care Physician [phone] [place] [facility] [place]17[place] 12/14/[place] [facility] [place] [facility] Attending Physician: Bi Harry Allergies, Adverse Reactions, Alerts No Known Allergies Immunizations Given and Recorded Vaccine Date Status Refusal Reason tetanus/diphtheria/pertussis, acel(Tdap) 1 01/06/19 Given Measles/Mumps/Rubella Virus Vaccine 08/19/86 Recor ded Not Given Vaccine Date Status Refusal Reason pneumococcal 23-valent vaccine 03/09/19 Not Given Patient Refuses influenza virus vaccine, inactivated 03/09/19 Not Given Patient Refuses 1Result Comment: [01/06/2019] [id number] Medications Aristada 882 mg/3.2 mL intramuscular suspension, extended release = 882 mg, Intramuscular, Every 28 days, Next dose due 05/02/21, # 1 each, 1 Refills, Maintenance, 04/11/21 8:05:00 EDT, [facility], Partial fill upon patient request if the prescription isfor a schedule II opioid drug., 170, cm, 04/10/21 2... Start Date: 04/11/21 Status: Ordered divalproex sodium 500 mg oral tablet, extended release 4 tablet = 2,000 mg, By Mouth, Daily at bedtime, # 120 tablet, 1 Refills, Maintenance, 04/11/21 8:00:00 EDT, ER Tablet, [facility], Partial fill upon patient request if the prescription is for a schedule II opioid drug., 170, cm, 04/10/21... Start Date: 04/11/21 Status: Ordered folic acid 1 mg oral tablet 1 mg, 1, tablet, By Mouth, Daily, # 30 tablet, Refills 1, Tot. Refills 1, Maintenance, 04/11/21 8:00:00 EDT, Route to Pharmacy Electronically, [facility], Partial fill upon patient request if the prescription is for a schedule II opioid d... Start Date: 04/11/21 Status: Ordered multivitamin with minerals Multiple Vitamins with Minerals oral tablet 1 tablet, By Mouth, Daily, # 30 tablet, 1 Refills, Maintenance, 04/11/21 8:02:00 EDT, Tablet, [facility], Partial fill upon patient request if the prescription is for a schedule II opioid drug., 1 tablet By Mouth Daily, 170, cm, 04/10/21... Start Date: 04/11/21 Status: Ordered olanzapine 15 mg oral tablet 1 tablet = 15 mg, By Mouth, Daily at bedtime, # 30 tablet, 1 Refills, Maintenance, 04/11/21 8:02:00EDT, Tablet, [facility], Partial fill upon patient request if the prescription is for a schedule II opioid drug., 170, cm, 04/10/21 20:33:... Start Date: 04/11/21 Status: Ordered thiamine 100 mg oral tablet 100 mg, 1, tablet, By Mouth, Daily, # 30 tablet, Refills 1, Tot. Refills 1, Maintenance, 04/11/21 8:04:00 EDT, Route to Pharmacy Electronically, [facility], Partial fill upon patient request [...]
--- OUTSIDE RECORDS SUMMARY | 2023-12-07 17:02 | XMS_ITS | Continuity of Care Document ---
Author Name Unknown Organization [facility] Adult Address [address] [place] [address]- Care Team Providers Care Senior Software Engineer Name Role Phone Bi Harry Primary Care Physician Encounter [facility] Date(s): 02/09/21 - 03/11/21 [facility] [address] [place] [address]- Allergies, Adverse Reactions, Alerts Substance Reaction Severity Status clindamycin Active amoxicillin Active Immunizations Given and Recorded Vaccine Date Status Refusal Reason tetanus/diphtheria/pertussis, acel(Tdap) 1 01/06/19 Given Not Given Vaccine Date Status Refusal Reason pneumococcal 23-valent vaccine 03/09/19 Not Given Patient Refuses influenza virus vaccine, inactivated 03/09/19 Not Given Patient Refuses 1Result Comment: [01/06/2019] [id number] Medications Abilify Maintena Inj Intramuscular, Every 28 days, Refills 0, Maintenance, 01/28/21 10:50:00 EST, Partial fill upon patient request if the prescription is for a schedule II opioid drug. Start Date: 01/28/21 Status: Ordered Aristada 882 mg/3.2 mL intramuscular suspension, extended release = 882 mg, Intramuscular, Every 28 days, Next due 02/16/21, # 1 each, 0 Refills, Maintenance, 01/21/21 9:11:00 EST, [facility]-, Partial fill upon patient request if the prescription is for a schedule II opioid drug., 169, cm, 02... Start Date: 01/21/21 Status: Ordered benztropine 1 mg oral tablet 1 mg, 1, tablet, By Mouth, 2 times a day, # 60 tablet, Refills 0, Tot. Refills 0, Maintenance, 02/04/21 15:06:00 EST, Route to Pharmacy Electronically, [facility] #[id number], Partial fill upon patient request if the prescription is for a schedule II opio... Start Date: 02/04/21 Status: Ordered benztropine 1 mg oral tablet 1 mg, 1, tablet, By Mouth, 2 times a day, # 60 tablet, Refills 0, Tot. Refills 0, Maintenance, 01/21/21 9:08:00 EST, Route to Pharmacy Electronically, [facility], Partial fill upon patient request if the prescription is for a schedule II... Start Date: 01/21/21 Status: Ordered benztropine 1 mg oral tablet 1 mg, 1, tablet, By Mouth, 2 times a day, # 60 tablet, Refills 0, Tot. Refills 0, Maintenance, 02/15/21 12:16:00 EDT, Route to Pharmacy Electronically, [facility]/pharmacy #1130, Partial fill upon patient request if the prescription is for a schedule II opio... Start Date: 02/15/21 Status: Ordered divalproex sodium 500 mg oral enteric coated tablet See Instructions, 1 tablet by mouth daily in the morning and 3 tablets by mouth daily at bedtime, #120 tablet, 0 Refills, Maintenance, 02/04/21 15:06:00 EST, Tablet, [facility]/pharmacy #1130, Partial fillupon patient request if the prescription is for a s... Start Date: 02/04/21 Status: Ordered folic acid 1 mg oral tablet 1 mg, 1, tablet, By Mouth, Daily, # 30 tablet, Refills 0, Tot. Refills 0, Maintenance, 01/21/21 9:08:00 EST, Route to Pharmacy Electronically, [facility], Partial fill upon patient request if the prescription is for a schedule II opioid... Start Date: 01/21/21 Status: Ordered haloperidol 5 mg oral tablet 5 mg, 1, tablet, By Mouth, 2 times a day, # 60 tablet, Refills 0, Tot. Refills 0, Maintenance, 02/15/21 12:16:00 EDT, Route to Pharmacy Electronically, [facility]/pharmacy #[id number], Partial fill upon patient request if the prescription is for a schedule II opio... Start Date: 02/15/21 Status: Ordered melatonin 10 mg oral tablet 1 tablet = 10 mg, By Mouth, Daily at bedtime, # 30 tablet, 0 Refills, Maintenance, 01/21/21 9:08:00EST, Tablet, [facility], Partial fill upon patient request if the prescription is fora schedule II opioid drug., 169, cm, 01/21/21 8:56:... Start Date: 01/21/21 Status: Ordered olanzapine 15 mg oral tablet 1 tablet = 15 mg, By Mouth, Daily, # 30 tablet, 0 Refills, Maintenance, 02/04/21 15:05:00 EST, Tablet, [facility]/pharmacy #1130, Partial fill upon patient request if the prescription is for a schedule II opioid drug., 169, cm, 01/28/21 10:48:00 EST, Height,... Start Date: 02/04/21 Status: Ordered olanzapine 15 mg oral tablet 1 tablet = 15 mg, By Mouth, Daily at bedtime, # 30 tablet, 0 Refills, Maintenance, 01/21/21 9:08:00EST, Tablet, [facility], Partial fill upon patient request if the prescription is fora schedule II opioid drug., 169, cm, 01/21/21 8:56:... Start Date: 01/21/21 Status: Ordered olanzapine 15 mg oral tablet 1 tablet = 15 mg, By Mouth, Daily, # 30 tablet, 0 Refills, Maintenance, 02/15/21 12:16:00 EDT, Tablet, [facility]/pharmacy #[id number], Partial fill upon patient request if the prescription is for a schedule II opioid drug., 169, cm, 01/28/21 10:48:00 EST, Height,... Start Date: 02/15/21 Status: Ordered thiamine 100 mg oral tablet 100 mg, 1, tablet, By Mouth, 2 times a day, # 60 tablet, Refills 0, Tot. Refills 0, Maintenance, 01/21/21 9:08:00 EST, [facility] Partial fill upon patient [...]
--- OUTSIDE RECORDS SUMMARY | 2023-12-07 17:02 | XMS_ITS | Continuity of Care Document ---
Author Name Unknown Organization [facility] Address [address] [place] [address]- Care Team Providers Care Voice Data Communications Engineer Name Role Phone Bi Harry Primary Care Physician Encounter [facility] Date(s): 04/18/21 - 04/25/21 [facility] [address] [place] [address]- Attending Physician: Scot Perea MD Referring Physician: Bi Harry Allergies, Adverse Reactions, Alerts Substance Reaction Severity Status clindamycin Active amoxicillin Active Immunizations Given and Recorded Vaccine Date Status Refusal Reason tetanus/diphtheria/pertussis, acel(Tdap) 1 01/06/19 Given Not Given Vaccine Date Status Refusal Reason pneumococcal 23-valent vaccine 03/09/19 Not Given Patient Refuses influenza virus vaccine, inactivated 03/09/19 Not Given Patient Refuses 1Result Comment: [01/06/2019] [id number] Medications Aristada 882 mg/3.2 mL intramuscular suspension, extended release = 882 mg, Intramuscular, Every 28 days, Next dose due 05/02/21, # 1 each, 1 Refills, Maintenance, 04/11/21 8:05:00 EDT, [facility], Partial fill upon patient request if the prescription isfor a schedule II opioid drug., 170, cm, 04/10/21 2... Start Date: 04/11/21 Status: Ordered divalproex sodium 500 mg oral tablet, extended release 4 tablet = 2,000 mg, By Mouth, Daily at bedtime, # 120 tablet, 1 Refills, Maintenance, 04/11/21 8:00:00 EDT, ER Tablet, [facility], Partial fill upon patient request if the prescription is for a schedule II opioid drug., 170, cm, 04/10/21... Start Date: 04/11/21 Status: Ordered folic acid 1 mg oral tablet 1 mg, 1, tablet, By Mouth, Daily, # 30 tablet, Refills 1, Tot. Refills 1, Maintenance, 04/11/21 8:00:00 EDT, Route to Pharmacy Electronically, [facility], Partial fill upon patient request if the prescription is for a schedule II opioid d... Start Date: 04/11/21 Status: Ordered multivitamin with minerals Multiple Vitamins with Minerals oral tablet 1 tablet, By Mouth, Daily, # 30 tablet, 1 Refills, Maintenance, 04/11/21 8:02:00 EDT, Tablet, [facility], Partial fill upon patient request if the prescription is for a schedule II opioid drug., 1 tablet By Mouth Daily, 170, cm, 04/10/21... Start Date: 04/11/21 Status: Ordered olanzapine 15 mg oral tablet 1 tablet = 15 mg, By Mouth, Daily at bedtime, # 30 tablet, 1 Refills, Maintenance, 04/11/21 8:02:00EDT, Tablet, [facility], Partial fill upon patient request if the prescription is for a schedule II opioid drug., 170, cm, 04/10/21 20:33:... Start Date: 04/11/21 Status: Ordered thiamine 100 mg oral tablet 100 mg, 1, tablet, By Mouth, Daily, # 30 tablet, Refills 1, Tot. Refills 1, Maintenance, 04/11/21 8:04:00 EDT, Route to Pharmacy Electronically, [facility], Partial fill upon patient request [...] oldest [Reference Range]: 1 Height 170 cm (04/18/21 9:39 AM) Weight 63.8 kg (04/18/21 9:39 AM) Oxygen Saturation [94-100 %] 98 % (04/18/21 9:39 AM) Pulse Rate [55-90 bpm] 64 bpm (04/18/21 9:39 AM) Body Mass Index [18.5-24.99] 22.08 (04/18/21 9:39 AM) Blood Pressure [90-138/55-84 mm Hg] 120/ 80mm Hg (04/18/21 9:39 AM) Respiratory Rate [16-30 br/min] 16 br/mi n (04/18/21 9:39 AM) Mode of Delivery (Oxygen) Room air (04/18/21 9:39 AM) Blood pressure sites Arm, left (04/18/21 9:39 AM) Weight Obtained Via Standing scale (04/18/21 9:39 AM) Social History Social History Type Response Smoking Status Never smoker entered on: 03/22/18 Sex
--- OUTSIDE RECORDS SUMMARY | 2023-12-07 17:02 | XMS_ITS | Continuity of Care Document ---
Author Name Unknown Organization [facility] Address [address] [place] [address]- Care Team Providers Care Lunchroom Monitor Name Role Phone Jesica CASTELLANOS, Matt Santiago Primary Care Physician Encounter [facility] Date(s): 07/08/20 - 08/07/20 [facility] [address] [place] [address]- [facility] Allergies, Adverse Reactions, Alerts Substance Reaction Severity Status clindamycin Active
--- OUTSIDE RECORDS SUMMARY | 2023-12-07 17:02 | XMS_ITS | Continuity of Care Document ---
Author Name Unknown Organization [facility] Address [address] [place] [address]- Care Team Providers Care Heating And Cooling Systems Engineer Name Role Phone Not on Staff, PCP Primary Care Physician Unavail able Encounter [facility] [place] Date(s): 06/27/20 - 06/27/[address] [address]- [facility] Encounter Diagnosis Cocaine abuse(Final) - 06/27/20 Discharge Disposition: A-D/C Home Attending Physician: Severo Nelson MD Admitting Physician: Severo Nelson MD Referring Physician: Not on Staff, Referring MD Allergies, Adverse Reactions, Alerts Substance Reaction Severity Status amoxicillin Active Immunizations Given and Recorded Vaccine Date Status Refusal Reason tetanus/diphtheria/pertussis, acel(Tdap) 1 01/06/19 Given Not Given Vaccine Date Status Refusal Reason influenza virus vaccine, inactivated 03/09/19 Not Given Patient Refuses pneumococcal 23-valent vaccine 03/09/19 Not Given Patient Refuses 1Result Comment: [01/06/2019] [id number] Medications Abilify 20 mg oral tablet 1 tablet = 20 mg, By Mouth, Daily at bedtime, # 60 tablet, 1 Refills, Maintenance, 11/18/19 8:44:00EST, Tablet, [facility], 170, cm, 11/18/19 8:08:00 EST, Height, 61.7, kg, 11/11/19 13:54:00 EST, Dry Weight Start Date: 11/18/19 Status: Ordered Invega Sustenna 117 mg/0.75 mL intramuscular suspension, extended release = 117 mg, Intramuscular, Every 28 days, administer IM on June 20, 2020, # 0.75 mL, 0 Refills, Maintenance, 06/09/20 18:07:00 EDT, [facility], 170, cm, 06/09/20 16:31:00 [...] 3 Oxygen Saturation [94-100 %] 99 % (06/27/20 7:21 AM) 97 % (06/27/20 6:03 AM) 98 % (06/27/20 4:40 AM) Pulse Rate [55-90 bpm] 61 bpm (06/27/20 7:21 AM) 75 bpm (06/27/20 6:03 AM) 74 bpm (06/27/20 4:40 AM) Blood Pressure [90-138/55-84 mm Hg] 111/56mm Hg (06/27/20 7:21 AM) 121/59mm Hg (06/27/20 6:03 AM) 148/78mm Hg *H* (06/27/20 4:40 AM) Respiratory Rate [16-30 br/min] 17 br/min (06/27/20 7:21 AM) 16 br/min (06/27/20 6:03 AM) 14 br/min *L* (06/27/20 4:40 AM) Temperature [96.8-100.4 DegF] 97.9 DegF (06/27/20 4:40 AM) Mode of Delivery (Oxygen) Room air (06/27/20 7:21 AM) Room air (06/27/20 6:03 AM) Room air (06/27/20 4:40 AM) Blood pressure sites Arm, left (06/27/20 7:21 AM) Arm, left (06/27/20 6:03 AM) Arm, left (06/27/20 4:40 AM) Temperature Route Oral (06/27/20 4:40 AM) Social History Social History Type Response Smoking Status Never smoker entered on: 03/22/18 Sex
--- OUTSIDE RECORDS SUMMARY | 2023-12-07 17:02 | XMS_ITS | Continuity of Care Document ---
Author Name Unknown Organization [facility] ter Address [address] [place] [address]- Care Team Providers Care Software Configuration Engineer Name Role Phone Bi Harry Primary Care Physician Encounter [facility] [place] Date(s): 12/01/21 - 12/05/[address] [address]- Encounter Diagnosis Schizophrenia(Final) - 12/01/21 Discharge Disposition: A-D/C Home Attending Physician: Juan Garcia MD Admitting Physician: Juan Garcia MD Referring Physician: Not on Staff, Referring [...] Not Given Patient Refuses 1Result Comment: [01/06/2019] [id number] Medications Aristada 882 mg/3.2 mL intramuscular suspension, extended release = 882 mg, Intramuscular, Every 28 days, Next dose due 05/02/21, # 1 each, 1 Refills, Maintenance, 04/11/21 8:05:00 EDT, [facility], Partial fill upon patient request if the prescription isfor a schedule II opioid drug., 170, cm, 04/10/21 2... Start Date: 04/11/21 Status: Ordered divalproex sodium 500 mg oral tablet, extended release 4 tablet = 2,000 mg, By Mouth, Daily at bedtime, # 120 tablet, 1 Refills, Maintenance, 04/11/21 8:00:00 EDT, ER Tablet, [facility], Partial fill upon patient request if the prescription is for a schedule II opioid drug., 170, cm, 04/10/21... Start Date: 04/11/21 Status: Ordered folic acid 1 mg oral tablet 1 mg, 1, tablet, By Mouth, Daily, # 30 tablet, Refills 1, Tot. Refills 1, Maintenance, 04/11/21 8:00:00 EDT, Route to Pharmacy Electronically, [facility], Partial fill upon patient request if the prescription is for a schedule II opioid d... Start Date: 04/11/21 Status: Ordered multivitamin with minerals Multiple Vitamins with Minerals oral tablet 1 tablet, By Mouth, Daily, # 30 tablet, 1 Refills, Maintenance, 04/11/21 8:02:00 EDT, Tablet, [facility], Partial fill upon patient request if the prescription is for a schedule II opioid drug., 1 tablet By Mouth Daily, 170, cm, 04/10/21... Start Date: 04/11/21 Status: Ordered olanzapine 15 mg oral tablet 1 tablet = 15 mg, By Mouth, Daily at bedtime, # 30 tablet, 1 Refills, Maintenance, 04/11/21 8:02:00EDT, Tablet, [facility], Partial fill upon patient request if the prescription is for a schedule II opioid drug., 170, cm, 04/10/21 20:33:... Start Date: 04/11/21 Status: Ordered thiamine 100 mg oral tablet 100 mg, 1, tablet, By Mouth, Daily, # 30 tablet, Refills 1, Tot. Refills 1, Maintenance, 04/11/21 8:04:00 EDT, Route to Pharmacy Electronically, [facility], Partial fill upon patient request [...] 3 Oxygen Saturation [94-100 %] 100 % (12/05/21 11:22 AM) 98 % (12/04/21 9:26 PM) 97 % (12/04/21 5:26 PM) Pulse Rate [55-90 bpm] 80 bpm (12/05/21:22 AM) 65 bpm (12/04/21 9:26 PM) 88 bpm (12/04/21 5:26 PM) Blood Pressure [90-138/55-84 mm Hg] 106/68mm Hg (12/05/21 11:22 AM) 128/70mm Hg (12/04/21 9:26 PM) 130/78mm Hg (12/04/21:26 PM) Respiratory Rate [16-30 br/min] 18 br/min (12/05/21 11:22 AM) 16 br/min (12/04/21 9:26 PM) 18 br/min (12/04/21 5:26 PM) Temperature [96.8-100.4 DegF] 98 DegF (12/05/21:22 AM) 97.6 DegF (12/04/21 9:26 PM) 98.0 DegF (12/04/21:26 PM) Mode of Delivery (Oxygen) Room air (12/05/21 11:22 AM) Room air (12/04/21 9:26 PM) Room air (12/04/21 5:26 PM) Blood pressure sites Arm, right (12/05/21 11:22 AM) Arm, right (12/04/21 9:26 PM) Arm, right (12/04/21 5:26 PM) Temperature Route Oral (12/05/21 11:22 AM) Oral (12/04/21 9:26 PM) Oral (12/04/21 5:26 PM) Social History Social History Type Response Smoking Status Never smoker entered on: 03/22/18 Sex
--- OUTSIDE RECORDS SUMMARY | 2023-12-07 17:02 | XMS_ITS | Continuity of Care Document ---
Author Name Unknown Organization [facility] ter Address [address] [place] [address]- Care Team Providers Care Assembler Surgical Garment Name Role Phone Bi Harry Primary Care Physician Encounter [facility] [place] Date(s): 11/01/21 - 11/03/[address] [address]- Encounter Diagnosis Natalya(Final) - 11/01/21 Discharge Disposition: Transfer to [facility] Attending Physician: Zoraida Mukherjee MD Admitting Physician: Zoraida Mukherjee MD Referring Physician: Not on Staff, Referring [...] Not Given Patient Refuses 1Result Comment: [01/06/2019] [id number] Medications Aristada 882 mg/3.2 mL intramuscular suspension, extended release = 882 mg, Intramuscular, Every 28 days, Next dose due 05/02/21, # 1 each, 1 Refills, Maintenance, 04/11/21 8:05:00 EDT, [facility], Partial fill upon patient request if the prescription isfor a schedule II opioid drug., 170, cm, 04/10/21 2... Start Date: 04/11/21 Status: Ordered divalproex sodium 500 mg oral tablet, extended release 4 tablet = 2,000 mg, By Mouth, Daily at bedtime, # 120 tablet, 1 Refills, Maintenance, 04/11/21 8:00:00 EDT, ER Tablet, [facility], Partial fill upon patient request if the prescription is for a schedule II opioid drug., 170, cm, 04/10/21... Start Date: 04/11/21 Status: Ordered folic acid 1 mg oral tablet 1 mg, 1, tablet, By Mouth, Daily, # 30 tablet, Refills 1, Tot. Refills 1, Maintenance, 04/11/21 8:00:00 EDT, Route to Pharmacy Electronically, [facility], Partial fill upon patient request if the prescription is for a schedule II opioid d... Start Date: 04/11/21 Status: Ordered multivitamin with minerals Multiple Vitamins with Minerals oral tablet 1 tablet, By Mouth, Daily, # 30 tablet, 1 Refills, Maintenance, 04/11/21 8:02:00 EDT, Tablet, [facility], Partial fill upon patient request if the prescription is for a schedule II opioid drug., 1 tablet By Mouth Daily, 170, cm, 04/10/21... Start Date: 04/11/21 Status: Ordered olanzapine 15 mg oral tablet 1 tablet = 15 mg, By Mouth, Daily at bedtime, # 30 tablet, 1 Refills, Maintenance, 04/11/21 8:02:00EDT, Tablet, [facility], Partial fill upon patient request if the prescription is for a schedule II opioid drug., 170, cm, 04/10/21 20:33:... Start Date: 04/11/21 Status: Ordered thiamine 100 mg oral tablet 100 mg, 1, tablet, By Mouth, Daily, # 30 tablet, Refills 1, Tot. Refills 1, Maintenance, 04/11/21 8:04:00 EDT, Route to Pharmacy Electronically, [facility], Partial fill upon patient request [...] 3 Oxygen Saturation [94-100 %] 100 % (11/03/21 10:00 AM) 100 % (11/03/21 5:13 AM) 100 % (11/02/21 7:08 PM) Pulse Rate [55-90 bpm] 80 bpm (11/03/21 10:00 AM) 72 bpm (11/03/21 5:13 AM) 69 bpm (11/02/21 7:08 PM) Blood Pressure [90-138/55-84 mm Hg] 132/80mm Hg (11/03/21 10:00 AM) 118/66mm Hg (11/03/21 5:13 AM) 125/66mm Hg (11/02/21 7:08 PM) Respiratory Rate [16-30 br/min] 17 br/min (11/03/21 10:00 AM) 16 br/min (11/03/21 5:13 AM) 18 br/min (11/02/21 7:08 PM) Temperature [96.8-100.4 DegF] 97.8 DegF (11/03/21 5:13 AM) 98.5 DegF (11/02/21 7:08 PM) 97.6 DegF (11/02/21 6:32 AM) Mode of Delivery (Oxygen) Room air (11/03/21 10:00 AM) Room air (11/03/21 5:13 AM) Room air (11/02/21 7:08 PM) Blood pressure sites Arm, right (11/03/21 10:00 AM) Arm, right (11/03/21 5:13 AM) Arm, right (11/02/21 7:08 PM) Temperature Route Oral (11/03/21 5:13 AM) Oral (11/02/21 7:08 PM) Oral (11/02/21 6:32 AM) Social History Social History Type Response Smoking Status Never smoker entered on: 03/22/18 Sex
--- OUTSIDE RECORDS SUMMARY | 2023-12-07 17:02 | XMS_ITS | Continuity of Care Document ---
Author Name Unknown Organization [facility] Address [address] [place] [address]- Care Team Providers Care Project Mgr Name Role Phone Bi Harry Primary Care Physician Encounter [facility] Date(s): 05/27/21 - 06/26/21 [facility] [address] [place] [address]- Allergies, Adverse Reactions, Alerts Substance Reaction Severity Status clindamycin Active amoxicillin Active Immunizations Given and Recorded Vaccine Date Status Refusal Reason tetanus/diphtheria/pertussis, acel(Tdap) 1 01/06/19 Given Measles/Mumps/Rubella Virus Vaccine 08/19/86 Recor ded Not Given Vaccine Date Status Refusal Reason pneumococcal 23-valent vaccine 03/09/19 Not Given Patient Refuses influenza virus vaccine, inactivated 03/09/19 Not Given Patient Refuses 1Result Comment: [01/06/2019] [id number] Medications Aristada 882 mg/3.2 mL intramuscular suspension, extended release = 882 mg, Intramuscular, Every 28 days, Next dose due 05/02/21, # 1 each, 1 Refills, Maintenance, 04/11/21 8:05:00 EDT, [facility], Partial fill upon patient request if the prescription isfor a schedule II opioid drug., 170, cm, 04/10/21 2... Start Date: 04/11/21 Status: Ordered divalproex sodium 500 mg oral tablet, extended release 4 tablet = 2,000 mg, By Mouth, Daily at bedtime, # 120 tablet, 1 Refills, Maintenance, 04/11/21 8:00:00 EDT, ER Tablet, [facility], Partial fill upon patient request if the prescription is for a schedule II opioid drug., 170, cm, 04/10/21... Start Date: 04/11/21 Status: Ordered folic acid 1 mg oral tablet 1 mg, 1, tablet, By Mouth, Daily, # 30 tablet, Refills 1, Tot. Refills 1, Maintenance, 04/11/21 8:00:00 EDT, Route to Pharmacy Electronically, [facility], Partial fill upon patient request if the prescription is for a schedule II opioid d... Start Date: 04/11/21 Status: Ordered multivitamin with minerals Multiple Vitamins with Minerals oral tablet 1 tablet, By Mouth, Daily, # 30 tablet, 1 Refills, Maintenance, 04/11/21 8:02:00 EDT, Tablet, [facility], Partial fill upon patient request if the prescription is for a schedule II opioid drug., 1 tablet By Mouth Daily, 170, cm, 04/10/21... Start Date: 04/11/21 Status: Ordered olanzapine 15 mg oral tablet 1 tablet = 15 mg, By Mouth, Daily at bedtime, # 30 tablet, 1 Refills, Maintenance, 04/11/21 8:02:00EDT, Tablet, [facility], Partial fill upon patient request if the prescription is for a schedule II opioid drug., 170, cm, 04/10/21 20:33:... Start Date: 04/11/21 Status: Ordered thiamine 100 mg oral tablet 100 mg, 1, tablet, By Mouth, Daily, # 30 tablet, Refills 1, Tot. Refills 1, Maintenance, 04/11/21 8:04:00 EDT, Route to Pharmacy Electronically, [facility], Partial fill upon patient request [...]
--- OUTSIDE RECORDS SUMMARY | 2023-12-07 17:02 | XMS_ITS | Continuity of Care Document ---
Author Name Unknown Organization [facility] Address [address] [place] [address]- Care Team Providers Care Cleaner Laboratory Equipment Name Role Phone Bi Harry Primary Care Physician [phone] Encounter [facility] [place] Date(s): 07/06/20 - 08/05/20 [facility] [address] [place] [address]- [facility] Allergies, Adverse Reactions, Alerts Substance Reaction Severity Status amoxicillin Active Immunizations Given and Recorded Vaccine Date Status Refusal Reason tetanus/diphtheria/pertussis, acel(Tdap) 1 01/06/19 Given Not Given Vaccine Date Status Refusal Reason influenza virus vaccine, inactivated 03/09/19 Not Given Patient Refuses pneumococcal 23-valent vaccine 03/09/19 Not Given Patient Refuses 1Result Comment: [01/06/2019] [id number] Medications Abilify 5 mg oral tablet 5 mg, 1, tablet, By Mouth, Daily, Take 1 tablet for 7 days, then take 2 tablets for next 7 days, # 30 tablet, Refills 0, Tot. Refills 0, Maintenance, 07/21/20 13:09:00 EDT, Route to Pharmacy Electronically, [id number], 170, cm, 07/21/20 6:11:0... Start Date: 07/21/20 Status: Ordered Problem List Condition Effective Dates Status Health Status Inform ant Autism spectrum(Confirmed) Active Excessive daytime sleepiness(Confirmed) Active Depersonalization disorder(Confirmed) Active Hyperprolactinemia(Confirmed) Active Narcolepsy(Confirmed) Active Schizoaffective disorder(Confirmed) Active Social History Social History Type Response Smoking Status Never smoker entered on: 03/22/18 Sex
--- OUTSIDE RECORDS SUMMARY | 2023-12-07 17:02 | XMS_ITS | Continuity of Care Document ---
Author Name Unknown Organization [facility] Address Unknown Care Team Providers Care Brush Hand Name Role Phone Bi Harry Primary Care Physician [phone] [facility] [place] Date(s): 12/14/21 - 01/29/22 [facility] Attending Physician: Bi Harry Allergies, Adverse Reactions, Alerts No Known Allergies Immunizations Given and Recorded Vaccine Date Status Refusal Reason tetanus/diphtheria/pertussis, acel(Tdap) 1 01/06/19 Given Measles/Mumps/Rubella Virus Vaccine 08/19/86 Recor ded Not Given Vaccine Date Status Refusal Reason pneumococcal 23-valent vaccine 03/09/19 Not Given Patient Refuses influenza virus vaccine, inactivated 03/09/19 Not Given Patient Refuses 1Result Comment: [01/06/2019] [id number] Medications Aristada 882 mg/3.2 mL intramuscular suspension, extended release = 882 mg, Intramuscular, Every 28 days, Next dose due 05/02/21, # 1 each, 1 Refills, Maintenance, 04/11/21 8:05:00 EDT, [facility], Partial fill upon patient request if the prescription isfor a schedule II opioid drug., 170, cm, 04/10/21 2... Start Date: 04/11/21 Status: Ordered divalproex sodium 500 mg oral tablet, extended release 4 tablet = 2,000 mg, By Mouth, Daily at bedtime, # 120 tablet, 1 Refills, Maintenance, 04/11/21 8:00:00 EDT, ER Tablet, [facility], Partial fill upon patient request if the prescription is for a schedule II opioid drug., 170, cm, 04/10/21... Start Date: 04/11/21 Status: Ordered folic acid 1 mg oral tablet 1 mg, 1, tablet, By Mouth, Daily, # 30 tablet, Refills 1, Tot. Refills 1, Maintenance, 04/11/21 8:00:00 EDT, Route to Pharmacy Electronically, [facility], Partial fill upon patient request if the prescription is for a schedule II opioid d... Start Date: 04/11/21 Status: Ordered multivitamin with minerals Multiple Vitamins with Minerals oral tablet 1 tablet, By Mouth, Daily, # 30 tablet, 1 Refills, Maintenance, 04/11/21 8:02:00 EDT, Tablet, [facility], Partial fill upon patient request if the prescription is for a schedule II opioid drug., 1 tablet By Mouth Daily, 170, cm, 04/10/21... Start Date: 04/11/21 Status: Ordered olanzapine 15 mg oral tablet 1 tablet = 15 mg, By Mouth, Daily at bedtime, # 30 tablet, 1 Refills, Maintenance, 04/11/21 8:02:00EDT, Tablet, [facility], Partial fill upon patient request if the prescription is for a schedule II opioid drug., 170, cm, 04/10/21 20:33:... Start Date: 04/11/21 Status: Ordered thiamine 100 mg oral tablet 100 mg, 1, tablet, By Mouth, Daily, # 30 tablet, Refills 1, Tot. Refills 1, Maintenance, 04/11/21 8:04:00 EDT, Route to Pharmacy Electronically, [facility], Partial fill upon patient request [...]
--- NOTE | 2023-12-07 18:13 | PC.NURSE ---
patient resting in stretcher, respirations equal and unlabored. patient has sitter from inpt psych facility at bedside
[2023-12-07 18:56] VITALS: BP 121/82; PULSE 74; RESP 16; TEMP 36.4; O2SAT 97
--- NOTE | 2023-12-07 19:13 | PC.NURSE ---
This Rn took over pt care @ 1900. Pt requesting food. Pt advised he cannot eat at the moment. Sitter from [facility] remains at bedside. Plan of care ongoing.
== END 2023-12-07 20:32 | disposition other institution (70) ==
PROVIDERS: Nurse Practitioner Family; Emergency Provider Student in an Organized Health Care Education/Training Program; PCP Physician Assistant
DX: R79.89 Other specified abnormal findings of blood chemistry (principal); R10.2 Pelvic and perineal pain; Z11.52 Encounter for screening for COVID-19; Z20.828 Contact with and (suspected) exposure to other viral communicable diseases; Z79.899 Other long term (current) drug therapy
CPT/HCPCS: 36415; 74176; 80053; 81003; 83690; 85025; 87502; 87635; 99284

== ENCOUNTER 2023-12-25 13:49 | Outpatient (AMB) | payer OTHER, SELFPAY ==
--- NOTE | 2023-12-25 13:50 | MHC.OFFVIS ---
Intake Vital Signs 12/25/23 14:01 Height 5 ft 7 in Weight 143 lb BMI 22.4 BP 140/80 H Blood Pressure Location Lt brachial Position Sitting Pulse 94 Intake Visit Reasons: Swallowed foreign body Intake Note: Patient is seen in office for ER follow up visit, following swallowed foreign body. Pt c/o:constipation comes and goes, denies any other symptoms ER:12/07/23 Rehabilitation Manager Required: No Accompanied by: Other Relationship Allergies No Known Allergies [No Known Allergies*] Allergy (Verified 12/25/23 13:56) Medication List - Last Reconciled 12/25/23 by Scot Pendleton MD divalproex ER 4 tabs PO BEDTIME folic acid 1 tab PO DAILY [id number]-mins 9 mg iron-400 mcg (Thera-M) 1 tab PO DAILY olanzapine 1 tab PO BEDTIME thiamine HCl (vitamin B1) 1 tab PO DAILY HPI HPI Comments History of Present Illness Details 38-year-old male patient with a past history of schizoaffective schizophrenia recently evaluated in the emergency department on 12/06/2023. Prior to receiving an MRI to evaluate patient's ability to undergo ECT, abdominal x-ray was performed which revealed metal fragments within the abdominal cavity. Subsequent CT abdomen and pelvis also showed metallic foreign body, although the exact location of the material is difficult to determine. On further questioning, the patient admitted to swallowing a computer processor. He denied abdominal pain nausea or vomiting, or changes in his bowels. Laboratories were normal as well. He currently denies any abdominal pain, nausea, vomiting, constipation, bloody stool or changes in appetite. [facility] Medical History Autism Schizo affective schizophrenia Social History Alcohol intake: unknown Patient Tobacco Use Status: Tobacco use Unknown Substance Use Type: Heroin, Inhalants, Marijuana and Opiates Review of Systems Const Unobtainable due to mental condition Physical Exam Vital Signs: Last Vital Signs Pulse 94 12/25/23 14:01 BP 140/80 H 12/25/23 14:01 BMI result Body Mass Index 22.4 Const General: cooperative and no acute distress Nutritional Appearance: well nourished Orientation/consciousness: patient oriented x3 Limitations: no limitations HEENT Head: Yes normocephalic and Yes atraumatic Ears: hearing grossly normal bilaterally Resp Effort & Inspection: normal respiratory effort, no audible wheezes, no cough and no respiratory distress Cardio Jugular venous distension: no JVD GI Inspection: Yes normal to inspection Palpation (GI): Soft to palpation, nontender, no guarding, not rigid and No hepatosplenomegaly present Percussion: Yes normal to percussion Auscultation: normal bowel sounds Rectal Exam - Male: Yes deferred Skin Other: Warm, dry, no rash Neuro General: patient oriented x3 Extrem General: Yes no clubbing, cyanosis or edema Assessment & Plan Assessment & Plan (1) Swallowed foreign body: Code(s): T18.9XXA - Foreign body of alimentary tract, part unspecified, initial encounter Qualifiers: Encounter type: initial encounter Qualified Code(s): T18.9XXA - Foreign body of alimentary tract, part unspecified, initial encounter Plan 38-year-old male patient presenting as an ED follow-up patient after swallowing a computer processor several weeks ago. The patient remains asymptomatic and denies any abdominal discomfort or evidence of obstruction. I will check abdominal x-ray to document the current location of the foreign material. Follow-up will be based on x-ray findings. Orders: Orders XR abdomen min 2V Today T18.9XXA - Foreign body of alimentary tract, part unspecified, initial encounter Coding Level of Care Code New Pt Level 4 (84741) Diagnoses Swallowed foreign body, initial encounter T18.9XXA Encounter type: initial encounter
[2023-12-25 14:01] VITALS: BP 140/80; PULSE 94; BMI 22.4
== END 2023-12-25 14:08 | disposition home or self-care (01) ==
PROVIDERS: PCP Physician Assistant; Visit Provider Surgery
DX: T18.9XXA Foreign body of alimentary tract, part unspecified, initial encounter (principal)
CPT/HCPCS: 99203

== ENCOUNTER 2023-12-25 13:49 | Outpatient (REF) | payer OTHER, SELFPAY ==
--- NOTE | ~2023-12-25 | XR_ITS ---
EXAMINATION: XR ABDOMEN COMPLETE CLINICAL INDICATION: Follow-up ingested radiopaque foreign body. COMPARISON: CT abdomen and pelvis dated 12/07/2023. TECHNIQUE: 3 AP views of the abdomen and pelvis are submitted. FINDINGS: There is a moderately large stool burden, suggesting possible constipation. No obstruction, ileus or free intraperitoneal air is seen. In the right abdomen, a 7.4 x 5.1 cm radiopaque foreign body is redemonstrated. This remains in relatively stable position from the CT examination of 12/07/2023. Upon review, this may reside within the gastroduodenal junction, although this is uncertain. There are further minimal ingested radiodense particulate foci seen within the colon. No free intraperitoneal air is seen. No urinary calculus is seen. The bones are unremarkable. XR/XR abdomen min 2V IMPRESSION: An ingested radiodense foreign body is redemonstrated within the distal stomach, in stable position from the CT examination of 12/07/2023. It is suspected that this resides in the vicinity of the gastroduodenal junction. This could be confirmed with an upper GI series. There are further tiny radiodense foci distributed throughout the colon. Findings suggest possible constipation, without mary bowel obstruction.
== END 2023-12-25 13:50 | disposition home or self-care (01) ==
LOC: HO.XRAY 13:49
PROVIDERS: PCP Physician Assistant; Visit Provider Surgery
DX: T18.9XXA Foreign body of alimentary tract, part unspecified, initial encounter (principal)
CPT/HCPCS: 74019; 99202

== ENCOUNTER 2025-01-11 06:49 | Inpatient (IN) | payer OTHER, SELFPAY ==
[2025-01-11] VITALS (12 sets, daily range): BP systolic 122–143; BP diastolic 68–87; PULSE 67–112; RESP 15–22; TEMP 36.2–37.2; O2SAT 81–100; BMI 24.2
--- NOTE | ~2025-01-11 | XR_ITS ---
CLINICAL HISTORY: post-op ;s p foreign body ingestion sbo 1 view abdomen Comparison: CT/SR - CT ABDOMEN PELVIS W IV CON - 01/11/25 08:37 EST CR/VA/SR - XR ABDOMEN MIN 2V - 12/25/23 14:49 EST Findings: No abnormal calcifications. No acute fractures. 2 cm metallic foreign body within the right lower quadrant. Additional previously seen foreign bodies are no longer present mild small bowel dilatation which measures up to 4.5 cm. [id number] fecal retention within the colon. Prior bowel surgery within the right midabdomen. IMPRESSION: 1. Residual 2 cm metallic foreign body within the right lower quadrant in the region of the distal ileum, ileocecal valve or cecum. 2. Findings suggest a partial degree of distal small bowel obstruction, similar to the recent CT. This document has been electronically signed by: Erica Choi MD on 01/12/2025 16:32:03
--- NOTE | ~2025-01-11 | CT_ITS ---
CLINICAL HISTORY: FB on xray, RLQ tenderness CT abdomen and pelvis with contrast Comparison: CR/MO/SR - XR ABDOMEN MIN 2V - 12/25/23 14:[address]/SR - CT ABDOMEN PELVIS WO IV CON - 12/07/23 13:26 EST Findings: CT abdomen: Lung bases are clear. No acute bony lesions. No focal lesions identified within the liver, spleen, pancreas, gallbladder, adrenal glands, or kidneys. Mild fluid distention of the distal gastric body and gastric antrum with hyperenhancement of the gastric mucosa. There is wall thickening of the gastric body distally and the gastric antrum extending to the duodenum. Fluid-filled loops of dilated small bowel are seen throughout the abdomen and pelvis measuring up to 4.1 cm in transverse measurement. Small-bowel wall thickening with hyperenhancement and numerous small bowel loops. There has been interval development of focal swirling of the central mesentery along the superior mesenteric venous access. Mildly prominent lymph nodes within the central mesentery measure up to 11 mm in short axis. Diffuse haziness throughout the mesenteric fat. No free air. CT pelvis: There is significant metal artifact seen within the mid to superior aspect of the central pelvis. Patient's initial CT study from December 07, 2023 demonstrated cluster of metallic foreign bodies within the right midabdomen, likely at the level of the terminal ileum or ileocecal valve. These are not appreciably changed in location of the patient's abdominal radiograph from December 25, 2023. However, in the patient's current study, the majority of the metallic radiodensity is seen over the central aspect of the pelvis over the distal lumbar spine and superior sacrum. There is an additional metallic radiodensity which appears to be within the dependent portion of the ascending colon. Fluid-filled loops of dilated small bowel are seen within the pelvis. Large amount of stool throughout the distal colon with moderate stool seen more proximally within the colon. The largest focus of the metallic foreign body is indeterminate in location. Trace free fluid within the pelvis. No free air. IMPRESSION: Ingested metallic foreign bodies as fully discussed above. There is a portion of this which is clearly within the ascending colon. However, the largest focus can not be accurately determined as to its location. Interval development of findings of concern for small bowel obstruction as fully discussed above. There is whorling of the central mesentery concerning for development of internal hernia and subsequent small-bowel obstruction. Surgical consultation suggested. This document has been electronically signed by: Matt Landeros MD on 01/11/2025 09:50:54
--- NOTE | 2025-01-11 06:57 | ED_ITS ---
HPI - General Adult General Chief complaint: Abdominal Pain Stated complaint: SM BOWEL OBSTRUCTION Time Seen by Provider: 01/11/25 06:56 Source: patient, EMS, RN notes reviewed and old records reviewed Mode of arrival: EMS History of Present Illness ED Provider: Wellington FARMER narrative: Patient is a 39-year-old male with history of schizoaffective disorder, autism spectrum disorder, OCD, alcohol use, cannabis use disorder, history of foreign body ingestion presenting to the emergency department from [place] with complaint of abdominal pain for the past week. Decreased appetite. Denies nausea, vomiting, diarrhea, constipation. Last bowel movement was yesterday, patient describes as normal. Denies fevers. KUB taken at demonstrates concern for small bowel obstruction, including a 6cm cluster of objects in left mid abdomen. Patient believes he remembers eating non-food items within the past week, but is unable to state what or when. HPI limited due to ASD and schizoaffective-bipolar. MD complaint: abdominal pain Onset (ago): week(s) Location: abdomen Severity: moderate Quality: aching Pain Consistency: colicky Treatments prior to arrival: none Related Data Home Medications ?Medication ?Instructions ?Recorded ?Confirmed divalproex 500 mg tablet,extended 4 tab PO BEDTIME 06/14/21 12/25/23 release 24 hr folic acid 1 mg tablet 1 tab PO DAILY 06/14/21 12/25/23 multivitamin-iron 9 mg-folic acid 1 tab PO DAILY 06/14/21 12/25/23 400 mcg-calcium and minerals tablet (Thera-M) olanzapine 15 mg tablet 1 tab PO BEDTIME 06/14/21 12/25/23 thiamine HCl (vitamin B1) 100 mg 1 tab PO DAILY 06/14/21 12/25/23 tablet Allergies Allergy/AdvReac Type Severity Reaction Status Date / Time No Known Allergies Allergy Verified 01/11/25 07:19 [No Known Allergies*] Review of Systems 2 Review of Systems: As per HPI Yes all other systems are reviewed and are negative Constitutional: Constitutional: Reports as per HPI PMFSH Past Medical History Medical History Autism Schizo affective schizophrenia Social History Social History Alcohol intake: unknown Patient Tobacco Use Status: Tobacco use Unknown Smoked in Last 30 Days: No Use of substances other than those prescribed or required for medical reasons: Yes Substance Use Type: Marijuana Advance Directives: No Advance Directives Information Provided: Yes Do you have a plan to hurt others: No Plan Physical Exam ED Vital Signs: Vital Signs - 24 hr 01/11/25 07:14 01/11/25 09:30 01/11/25 12:14 Temperature 98 F 98.3 F 99.0 F Pulse Rate 107 H 112 H 101 H Respiratory Rate 19 20 22 H Blood Pressure 135/85 137/77 143/69 H Pulse Oximetry 97 97 Oxygen Delivery Method Room Air Room Air BMI result Body Mass Index 24.2 Const General: cooperative, healthy appearing and no acute distress Orientation/consciousness: oriented to person, oriented to place, oriented to time and patient oriented x3 Limitations: no limitations HENMT Head: Yes normocephalic and Yes atraumatic Ears: external ears normal General nose exam: Normal external nose present Face and sinus: Yes face symmetric Mouth: oropharynx normal and moist mucous membranes Throat: Yes uvula midline Eyes Pupils: Equal, round and reactive pupils present Neck Neck: Yes normal visual inspection and Yes supple Resp Effort & Inspection: normal respiratory effort and able to speak in complete sentences Auscultation: clear to auscultation bilaterally Cardio Rate: regular rate Rhythm: regular rhythm Heart sounds: S1 normal heart sound present and S2 normal heart sound present GI Palpation (GI): Soft to palpation and Tenderness to palpation present (GI) periumbilically Auscultation: normoactive bowel sounds General: Yes no CVA tenderness Back/Spine/Pelvis Back: no CVA tenderness Skin General skin exam: elasticity normal and turgor normal Neuro General: oriented to person, oriented to place, oriented to time, patient oriented x3, moves all extremities, no focal motor deficits and CN's II-XI intact bilaterally Cranial nerves: Yes Equal, round and reactive pupils present Cognition (Neuro): normal cognition Extrem General: Yes full ROM, Yes no pedal edema and Yes no calf tenderness Psych Appearance: grossly normal Mental Status: mental status grossly normal Affect: normal affect Medications Administered Discontinued Medications Generic Name Dose Route Start Last Admin Trade Name Freq PRN Reason Stop Dose Admin Iohexol 100 ml 01/11/25 08:48 01/11/25 08:48 Iohexol 350 Mg/Ml 100 Ml Infus..Btl IV 01/11/25 08:49 85 ml ONCE ONE Administration Medical Decision Making Medical Decision Making [facility] Narrative: Patient is a 39-year-old male with history of schizoaffective disorder, autism spectrum disorder, OCD, alcohol use, cannabis use disorder, history of foreign body ingestion presenting to the emergency department from [place] with complaint of abdominal pain for the past week. On exam patient is awake, A+Ox3, VS WNL, afebrile, normal neurological exam without focal deficits, physical exam findings as above. Given reported symptoms and physical exam findings, initial differential includes but is not limited to small bowel obstruction, ingested foreign body, gastritis, appendicitis. Labs notable for no leukocytosis, no anemia, no significant electrolyte abnormalilties. CT A/P notable for ingested metallic foreign bodies differing in location from November of 2023, findings concerning for small bowel obstruction as well as whorling of central mesentary concerning for development of internal hernia and subsequent SBO. My interpretation is in agreement with the radiologist's interpretation. Spoke with patient's mother Rita, who is patient's HCP, updated on results. Case discussed wt Dr. Madrid who evaluated patient at bedside, will take to OR. Differential Diagnosis Differential Diagnoses: The differential diagnosis associated with the presentation includes As per [facility] Admission/Observation Consideration of admission/observation: Escalation of care including admission/observation considered Consult Healthcare Provider Management of the patient was discussed with: [facility] (Dr. Madrid) Lab Data [facility] Lab Attestation statement: I reviewed the patient's lab results. As per [facility] 01/11/25 08:00 01/11/25 08:00 Labs: Lab Results 01/11/25 01/11/25 Range/Units 08:00 10:59 WBC 6.0 (4.8-10.8) X10*3/uL RBC 5.08 (4.60-5.80) X10*6/uL Hgb 15.9 (14.0-18.0) g/dl Hct 47.4 (42.0-52.0) % MCV 93.3 (80.0-98.0) fL MCH 31.3 (27.0-33.0) pg MCHC 33.5 (31.0-36.0) g/dl RDW 11.7 (11.0-16.0) % Plt Count 340 D (160-400) X10*3/uL MPV 8.6 L (9.4-12.4) fL Immature Gran % (Auto) 0.3 (0.0-0.4) % Neut % (Auto) 54.6 (45-73) % Lymph % (Auto) 29.0 (20-40) % [place] % (Auto) 10.6 (2-11) % Eos % (Auto) 5.0 H (0-4) % Baso % (Auto) 0.5 (0-2) % Lymph # (Auto) 1.8 (1.2-4.9) X10*3/uL [place] # (Auto) 0.6 (0.1-1.2) X10*3/uL Eos # (Auto) 0.3 (0.0-0.4) X10*3/uL Baso # (Auto) 0.0 (0.0-0.2) X10*3/uL Abs Immat Gran (auto) 0.02 (0.00-0.03) X10*3/uL Absolute Neuts (auto) 3.3 (2.0-8.3) x10*3/uL Absolute Nucleated RBC 0.000 (0.0-0.012) X10*3/uL Nucleated RBC % (auto) 0.0 (0.0-0.2) /100WBC Sodium 140 (135-145) mmol/L Potassium 4.2 (3.3-5.1) mmol/L Chloride 104 (96-108) mmol/L Carbon Dioxide 22 (22-29) mmol/L Anion Gap 18 (12-20) BUN 17 H (9-16) mg/dL Creatinine 1.07 (0.5-1.4) mg/dL Estim Creat Clear Calc 86.6 Estimated GFR > 60 Random Glucose 98 (60-115) mg/dL Calcium 9.5 (8.4-10.2) mg/dL Total Bilirubin 0.6 (0.0-1.0) mg/dL AST 20 (5-37) U/L ALT 32 (0-40) U/L Alkaline Phosphatase 85 (39-117) U/L Total Protein 7.8 (6.5-8.0) g/dL Albumin 4.1 (3.5-5.0) g/dL Lipase 5 L (8-78) U/L Urine Color Dark Yellow Urine Appearance Clear Urine pH 7.0 (5.0-9.0) Ur Specific [place] >= 1.030 H (1.005-1.025) Urine Protein Trace (Neg-Trace) mg/dL Urine Glucose (UA) Negative (Negative) mg/dL Urine Ketones 40 (Negative) mg/dL Urine Blood Negative (Negative) Urine Nitrite Negative (Negative) Ur Leukocyte Esterase Negative (Negative) Independent Interpretation I performed an independent interpretation of an: CT Scan Interpretation: CT A/P notable for ingested metallic foreign bodies differing in location from November of 2023, findings concerning for small bowel obstruction as well as whorling of central mesentary concerning for development of internal hernia and subsequent SBO. Radiology Impression Discussion of test interpretation with radiology: I have reviewed the radiologist's reading. Radiologist Impression: IMPRESSION: Ingested metallic foreign bodies as fully discussed above. There is a portion of this which is clearly within the ascending colon. However, the largest focus can not be accurately determined as to its location. Interval development of findings of concern for small bowel obstruction as fully discussed above. There is whorling of the central mesentery concerning for development of internal hernia and subsequent small-bowel obstruction. Surgical consultation suggested. Independent Historian Clinical information obtained from an independent historian. History obtained from or confirmed by: Parent (mother, Rita, patient's HCP) External Record Review External record reviewed: Inpatient record, Office record and Outpatient record Discharge Plan Discharge Clinical Impression: Small bowel obstruction, Foreign body ingestion Patient Disposition: Admitted As Inpatient Print Language: Albanian
[2025-01-11 08:04] LABS: Basophils Percent Auto 0.5 % (0-2); Eosinophils Absolute Auto 0.3 X10*3/uL (0.0-0.4); Hematocrit 47.4 % (42.0-52.0); Hemoglobin 15.9 g/dl (14.0-18.0); Imm Gran Abs Auto 0.02 X10*3/uL (0.00-0.03); Imm Gran Pct Auto 0.3 % (0.0-0.4); Lymphocytes Absolute Auto 1.8 X10*3/uL (1.2-4.9); MANUAL DIFF FLAG NO; Mean Corpuscular HGB Conc 33.5 g/dl (31.0-36.0); Mean Corpuscular Hemoglobin 31.3 pg (27.0-33.0); Mean Corpuscular Volume 93.3 fL (80.0-98.0); Mean Platelet Volume 8.6 fL (9.4-12.4); Monocytes Absolute Auto 0.6 X10*3/uL (0.1-1.2); Monocytes Percent Auto 10.6 % (2-11); Neutrophils Absolute Auto 3.3 x10*3/uL (2.0-8.3); Neutrophils Percent Auto 54.6 % (45-73); Platelet Count 340 X10*3/uL (160-400); Red Blood Count 5.08 X10*6/uL (4.60-5.80); Red Cell Distribution Width 11.7 % (11.0-16.0)
[2025-01-11 08:21] LABS: Alanine Aminotransferase 32 U/L (0-40); Albumin Level 4.1 g/dL (3.5-5.0); Alkaline Phosphatase 85 U/L (39-117); Anion Gap 18 (12-20); Aspartate Amino Transferase 20 U/L (5-37); Bilirubin Total 0.6 mg/dL (0.0-1.0); Blood Urea Nitrogen 17 mg/dL (9-16); Calcium 9.5 mg/dL (8.4-10.2); Carbon Dioxide 22 mmol/L (22-29); Chloride 104 mmol/L (96-108); Creatinine Clr Calc Pharmacy 86.6; Estimated Glomerular Filt Rate > 60; Glucose Random 98 mg/dL (60-115); Lipase 5 U/L (8-78); Potassium 4.2 mmol/L (3.3-5.1); Sodium 140 mmol/L (135-145); Total Protein 7.8 g/dL (6.5-8.0)
[2025-01-11] MEDS: iohexoL 350 MG/ML 100 ML INFUS..BTL IV (08:48)
[2025-01-11 11:06] LABS: Appearance Urine Clear; Color Urine Dark Yellow; Glucose Urine UA Negative (Negative); Leukocyte Esterase Urine Negative (Negative); Nitrite Urine Negative (Negative); Specific Gravity - Urine >= 1.030 (1.005-1.025); Urine Blood Negative (Negative); Urine Ketones 40 mg/dL (Negative); Urine Protein Trace mg/dL (Neg-Trace)
--- NOTE | 2025-01-11 12:20 | P.HPGS_ITS ---
History of Present Illness History of Present Illness Date of Service: 01/11/25 Chief complaint: Postop Narrative: Bhargav Herman is a 39 year old male with significant cognitive issues/autism, schizoaffective disorder, OCD and history of PICA, who presents here to the emergency room we will several day history of progressively worsening abdominal pain. He thinks he ate something a few days ago but is unclear. Patient is unable to give a reliable history. Patient's symptoms are of mid abdominal pain which she thinks is getting worse. Denies any nausea, vomiting. Had bowel movement yesterday. He went on to have KUB followed by CT scan demonstrating findings of SBO and concern for a small-bowel volvulus. Patient also has metallic objects which have been in there from prior ingestion/PICA episodes in the past. He has never had abdominal surgery before. Chart was reviewed and patient evaluated. Patient was mother also called for a collateral history. [facility] Past Medical History Medical History Autism Schizo affective schizophrenia Social History Social History Alcohol intake: unknown Patient Tobacco Use Status: Tobacco use Unknown Smoked in Last 30 Days: No Use of substances other than those prescribed or required for medical reasons: Yes Substance Use Type: Marijuana Advance Directives: No Advance Directives Information Provided: Yes Do you have a plan to hurt others: No Plan Meds Allergies Allergy/AdvReac Type Severity Reaction Status Date / Time No Known Allergies Allergy Verified 01/11/25 07:19 [No Known Allergies*] Home Medications ?Medication ?Instructions ?Recorded ?Confirmed ?Last Taken ?Type divalproex 500 mg tablet,extended 4 tab PO BEDTIME 06/14/21 12/25/23 Unknown History release 24 hr folic acid 1 mg tablet 1 tab PO DAILY 06/14/21 12/25/23 Unknown History multivitamin-iron 9 mg-folic acid 1 tab PO DAILY 06/14/21 12/25/23 Unknown History 400 mcg-calcium and minerals tablet (Thera-M) olanzapine 15 mg tablet 1 tab PO BEDTIME 06/14/21 12/25/23 Unknown History thiamine HCl (vitamin B1) 100 mg 1 tab PO DAILY 06/14/21 12/25/23 Unknown History tablet Physical Exam Vital Signs: Vital Signs: Last Vital Signs Temp 99.0 F 01/11/25 12:14 Pulse 101 H 01/11/25 12:14 Resp 22 H 01/11/25 12:14 BP 143/69 H 01/11/25 12:14 Pulse Ox 97 01/11/25 12:14 O2 Del Method Room Air 01/11/25 12:14 BMI result Body Mass Index 24.2 Const: Other: Very anxious apprehensive young man. As noted above, difficult to obtain hi story. Also difficult exam. Dental caries Chest: Other: Chest breath sounds bilaterally, HS 1 in 2 GI: Other: Abdomen is moderately distended. Marked periumbilical tenderness. Results Results Labs: Short CBC 01/11/25 Range/Units 08:00 WBC 6.0 (4.8-10.8) X10*3/uL Hgb 15.9 (14.0-18.0) g/dl Hct 47.4 (42.0-52.0) % Plt Count 340 D (160-400) X10*3/uL BMP 01/11/25 08:00 Sodium 140 Potassium 4.2 Chloride 104 Carbon Dioxide 22 BUN 17 H Creatinine 1.07 Calcium 9.5 Liver Function 01/11/25 Range/Units 08:00 Total Bilirubin 0.6 (0.0-1.0) mg/dL AST 20 (5-37) U/L ALT 32 (0-40) U/L Alkaline Phosphatase 85 (39-117) U/L Albumin 4.1 (3.5-5.0) g/dL Urine 01/11/25 Range/Units 10:59 Urine Color Dark Yellow Urine Appearance Clear Urine pH 7.0 (5.0-9.0) Ur Specific [place] >= 1.030 H (1.005-1.025) Urine Protein Trace (Neg-Trace) mg/dL Urine Glucose (UA) Negative (Negative) mg/dL Assessment and Plan (1) Small bowel obstruction: Status: Acute (2) Foreign body ingestion: Status: Acute (3) Swallowed foreign body: Qualifiers: Encounter type: initial encounter Qualified Code(s): T18.9XXA - Foreign body of alimentary tract, part unspecified, initial encounter Status: Acute (4) Schizo affective schizophrenia: Status: Acute Plan Because of the unreliability of history as well as exam with this patient with his cognitive issues, along with can very concerning KUB and CT scan findings, I discussed with the patient's mother by phone ([phone]) therapeutic options which are observation or surgical intervention. Unfortunately, I would not recommend conservative therapy because of the untrustworthyness of exam because of the patient's psychiatric issues, I would recommend surgical intervention in the form of exploratory laparotomy and correcting any issues resulting in the CT scan findings of small-bowel volvulus. Risks, benefits, alternatives of procedure reviewed with the patient's mother (Di) and included but not limited to bleeding, infection, recurrence, numbness, pain, scarring, Possible bowel resection and possible ostomy (bag) are also unlikely but potential options. All questions answered. Patient was mother wishes to proceed. She will also receive a call from anesthesia regarding their consent shortly. Quality Stroke Does the patient have a stroke diagnosis?: No VTE Prior VTE?: No VTE Risk Level:: Surgical - low VTE Device Contraindication: N/A - Device Ordered VTE Drug Contraindication: Treatment Not Indicated Procedures Date of Service Date of Service: 01/11/25
[2025-01-11] MEDS: LORazepam 2 MG/ML VIAL 1 MG IVPUSH (12:27)
--- NOTE | 2025-01-11 13:16 | HO.ANESPROP2 ---
HPI - Anesthesia Eval Consult details Narrative: Volvulus PMFSH Active Problems Active Problems: All Active Problems Foreign body ingestion (Acute) Small bowel obstruction (Acute) Swallowed foreign body (Acute) Schizo affective schizophrenia (Acute) Autism (Acute) Past Medical History Medical History Autism Schizo affective schizophrenia Family History Family history of problems with anesthesia: No Surgical History History of Problems with Anesthesia: No Social History Social History Alcohol intake: unknown Patient Tobacco Use Status: Tobacco use Unknown Smoked in Last 30 Days: No Use of substances other than those prescribed or required for medical reasons: Yes Substance Use Type: Marijuana Advance Directives: No Advance Directives Information Provided: Yes Do you have a plan to hurt others: No Plan Meds Allergies Allergy/AdvReac Type Severity Reaction Status Date / Time No Known Allergies Allergy Verified 01/11/25 07:19 [No Known Allergies*] Active Medications: Current Medications Acetaminophen (Acetaminophen 325 Mg Tablet) 650 mg PO Q6H PRN PRN Reason: Pain, Mild 1-3,fever,headache Calcium Carbonate (Calcium Carbonate 750 Mg Tab.Chew) 750 mg PO Q4H PRN PRN Reason: Heartburn Magnesium Hydroxide (Milk Of Magnesia 30 Ml Oral.Susp) 30 ml PO DAILY PRN PRN Reason: Constipation Melatonin (Melatonin 3 Mg Tablet) 6 mg PO BEDTIME PRN PRN Reason: Insomnia Sodium Chloride (0.9 % Sodium Chloride Flush 3 Ml Syringe) [facility] ?Medication ?Instructions ?Recorded ?Confirmed ?Last Taken ?Type divalproex 500 mg tablet,extended 4 tab PO BEDTIME 06/14/21 12/25/23 Unknown History release 24 hr folic acid 1 mg tablet 1 tab PO DAILY 06/14/21 12/25/23 Unknown History multivitamin-iron 9 mg-folic acid 1 tab PO DAILY 06/14/21 12/25/23 Unknown History 400 mcg-calcium and minerals tablet (Thera-M) olanzapine 15 mg tablet 1 tab PO BEDTIME 06/14/21 12/25/23 Unknown History thiamine HCl (vitamin B1) 100 mg 1 tab PO DAILY 06/14/21 12/25/23 Unknown History tablet Exam Height,Weight and Vital Signs: Height 5 ft 7 in Weight 70 kg Last Vital Signs Temp 99.0 F 01/11/25 12:14 Pulse 101 H 01/11/25 12:14 Resp 22 H 01/11/25 12:14 BP 143/69 H 01/11/25 12:14 Pulse Ox 97 01/11/25 12:14 O2 Del Method Room Air 01/11/25 12:14 Pertinent Lab Results Pertinent Lab Results: Laboratory Tests 01/11/25 01/11/25 08:00 10:59 WBC 6.0 RBC 5.08 Hgb 15.9 Hct 47.4 MCV 93.3 MCH 31.3 MCHC 33.5 RDW 11.7 Plt Count 340 D MPV 8.6 L Immature Gran % (Auto) 0.3 Neut % (Auto) 54.6 Lymph % (Auto) 29.0 Yell % (Auto) 10.6 Eos % (Auto) 5.0 H Baso % (Auto) 0.5 Lymph # (Auto) 1.8 Yell # (Auto) 0.6 Eos # (Auto) 0.3 Baso # (Auto) 0.0 Abs Immat Gran (auto) 0.02 Absolute Neuts (auto) 3.3 Absolute Nucleated RBC 0.000 Nucleated RBC % (auto) 0.0 Sodium 140 Potassium 4.2 Chloride 104 Carbon Dioxide 22 Anion Gap 18 BUN 17 H Creatinine 1.07 Estim Creat Clear Calc 86.6 Estimated GFR > 60 Random Glucose 98 Calcium 9.5 Total Bilirubin 0.6 AST 20 ALT 32 Alkaline Phosphatase 85 Total Protein 7.8 Albumin 4.1 Lipase 5 L Urine Color Dark Yellow Urine Appearance Clear Urine pH 7.0 Ur Specific [place] >= 1.030 H Urine Protein Trace Urine Glucose (UA) Negative Urine Ketones 40 Urine Blood Negative Urine Nitrite Negative Ur Leukocyte Esterase Negative Airway Mallampati Class: II TM Dist: >3cm Neck ROM: Full Heart: RRR Lungs: CTAB Assessment and Plan Assessment Anesthesia Assessment: Anesthesia Plan Discussed and Chart Reviewed Final Anesthetic Review Family History of Problems with Anesthesia: No History of Problems with Anesthesia: No NPO: Yes ASA Class: II and Emergency Final Preanesthetic Review: No Changes in Pt Med Stat, Meds/Allgs Chart Reviewed and Consent Obtained/Reviewed Patient Risk: Intermediate Procedure Risk: Intermediate Anesthetic Plan Anesthetic Plan: GA Disposition: Standard PACU
--- NOTE | 2025-01-11 15:22 | P.OP_ITS ---
Operative Note Operative Note Date of Service: 01/11/25 Narrative: Preoperative diagnosis: [] Small-bowel obstruction, small-bowel volvulus, foreign body in small-bowel Postop diagnosis: [] The same Procedure [] exploratory laparotomy, enterolysis, enterectomy Surgeon: [] [employer] Infusion Specialist: [] Type of Anesthesia: [] General Indication for surgery: [] Patient has significant psychiatric issues. He also has a PICA problem. Patient ingested a foreign body in the recent past as well as having x-ray showing a retained foreign body. This admission, patient presents with worsening abdominal pain. CT scan on workup demonstrates findings of small-bowel volvulus/SBO as well as small bowel foreign body. Intraoperative findings demonstrated a knuckle of mid small bowel which was twisted on its anti- mesenteric border to an adhesion in the pelvis. Proximal to this was an impacted large metallic type square shaped foreign body which could not be milked distally. It was decided to resect the perforated segment along with the foreign body segment en mass. Roughly 60 cm ofsmall bowel in total resected. Transition point distal to this perforation site demonstrated normal caliber small bowel. Bowel was run and no obvious other pathology demonstrated. Findings: [] Patient brought to the operating room, placed on operative table supine position, after an adequate level general anesthesia was induced, the patient's abdomen is prepped and draped in usual sterile fashion using a small lower midline incision, this carried down through skin, subcutaneous tissue, and linea alba. Posterior fascia and peritoneum were opened and extended length of the incision. Very markedly dilated small bowel was initially encountered and bowel was run distally to a mid bowel segment which was adhered to the pelvic base/near the sigmoid colon and a local perforation site contained was encountered. Bowel was freed, and a Ginger clamp placed across this defect. The small bowel was then run were the markedly dilated proximal small bowel transition to this area with distally normal caliber small bowel. During the running of the bowel, the impacted metallic type foreign body was encountered. This could not be milked distally so it was decided to perform an on block resection of this with the perforation site. Bowel was transected at the desired locations using DONI staplers. Mesentery was taken down using double firing of ligature device. Specimen sent to pathology. A functional end-to-end anastomosis of the proximal and distal bowel was performed using DONI and TA staplers. TA staple line was buttressed using Lambert interrupted 3-0 silk sutures. Succus traversed the anastomosis with no leakage. Crotch of the anastomosis had seromuscular interrupted 3-0 Vicryl sutures placed. Mesenteric defect was closed using interrupted 3-0 Vicryl sutures. Abdominal cavity was irrigated and secured hemostasis. Wound was closed in the following manner; mass closed using 1. PDS was used to close the fascia. Interrupted inverted dermal 3-0 Vicryl sutures followed by Steri-Strips and sterile dressings were applied. Wound was infiltrated 0.5% Marcaine at completion. Sponge, needle, and instrument counts reported correct. Patient tolerated the procedure well and emerged from anesthesia stable condition. EBL minimal
[2025-01-11] MEDS: Lactated Ringers 1,000 ML 125 ML IVCONT (16:52)
[2025-01-11] MEDS: 0.9 % Sodium Chloride Flush 3 ML SYRINGE IVFLUSH (16:57)
[2025-01-11] MEDS: ceFAZolin Sodium/Dextrose,Iso 2 GM/50 ML PIGGYBACK IV (20:00)
[2025-01-12] MEDS: Lactated Ringers 1,000 ML 125 ML IVCONT ×4 (00:03→22:51)
[2025-01-12 03:05] VITALS: BP 120/70; PULSE 95; RESP 18; TEMP 36.4; O2SAT 95
[2025-01-12] MEDS: ceFAZolin Sodium/Dextrose,Iso 2 GM/50 ML PIGGYBACK IV ×2 (04:00→12:35)
[2025-01-12] MEDS: HYDROmorphone HCl 1 MG/ML SYRINGE 0.5 MG IVPUSH ×2 (04:54→09:06)
[2025-01-12 06:19] LABS: Hematocrit 40.6 % (42.0-52.0); Hemoglobin 13.5 g/dl (14.0-18.0); Mean Corpuscular HGB Conc 33.3 g/dl (31.0-36.0); Mean Corpuscular Hemoglobin 31.5 pg (27.0-33.0); Mean Corpuscular Volume 94.9 fL (80.0-98.0); Mean Platelet Volume 9.2 fL (9.4-12.4); Platelet Count 321 X10*3/uL (160-400); Red Blood Count 4.28 X10*6/uL (4.60-5.80); Red Cell Distribution Width 11.9 % (11.0-16.0); White Blood Count 7.6 X10*3/uL (4.8-10.8)
[2025-01-12 06:45] LABS: Anion Gap 10 (12-20); Blood Urea Nitrogen 16 mg/dL (9-16); Calcium 7.9 mg/dL (8.4-10.2); Carbon Dioxide 23 mmol/L (22-29); Chloride 110 mmol/L (96-108); Creatinine Clr Calc Pharmacy 106.5; Estimated Glomerular Filt Rate > 60; Glucose Random 100 mg/dL (60-115); Sodium 139 mmol/L (135-145)
[2025-01-12 08:25] VITALS: BP 133/82; PULSE 106; RESP 18; TEMP 36.8; O2SAT 96
--- NOTE | 2025-01-12 08:46 | PHA.MEDREC ---
Pharmacy Consult ? Medication Reconciliation Pharmacy has completed the medication reconciliation. LIST OBTAINED FROM [employer]. LAST ARISTADA DOSE = 12/16/24 AND NEXT DOSE DUE 01/13/25. NOTIFIED MED REC COMPLETE
--- NOTE | 2025-01-12 10:03 | P.PNGS_ITS ---
Subjective Subjective Date of Service: 01/12/25 Interval history: States he is ?okay? Unable to save his passing flatus No vomiting Pain seems well controlled Patient is extremely anxious Physical Exam 2 Vital Signs: Vital Signs: Last Vital Signs Temp 98.3 F 01/12/25 08:25 Pulse 106 H 01/12/25 08:25 Resp 18 01/12/25 08:25 BP 133/82 01/12/25 08:25 Pulse Ox 96 01/12/25 08:25 O2 Del Method Nasal Cannula 01/12/25 03:05 O2 Flow Rate 2 01/12/25 03:05 BMI result Body Mass Index 24.2 Const: Other: Extremely anxious General: no acute distress Resp: Effort & Inspection: normal respiratory effort Cardio: Rhythm: regular rhythm GI: Other: Incision clean and dry Palpation (GI): Soft to palpation, not firm and no guarding Objective Data Active Medications Acetaminophen (Acetaminophen 325 Mg Tablet) 650 mg PO Q6H PRN PRN Reason: Pain, Mild 1-3,fever,headache Calcium Carbonate (Calcium Carbonate 750 Mg Tab.Chew) 750 mg PO Q4H PRN PRN Reason: Heartburn Hydromorphone HCl (Hydromorphone Hcl 1 Mg/Ml Syringe) 0.5 mg IVPUSH Q4H PRN; Protocol PRN Reason: Pain, Severe (Pain Scale 7-10) Last Admin: 01/12/25 09:06 Dose: 0.5 mg Documented By: ANEUDY Lactated Ringer's (Lr) 1,000 mls @ 125 mls/hr IVCONT .Q8H [facility] Last Admin: 01/12/25 07:22 Dose: 125 mls/hr Documented By: ANEUDY Cefazolin Sodium/Dextrose (Ancef) 2 gm in 50 mls @ 100 mls/hr IV Q8H [facility] Stop: 01/12/25 12:33 Last Infusion: 01/12/25 04:32 Dose: Infused Documented By: ISABELRISGarrett Magnesium Hydroxide (Milk Of Magnesia 30 Ml Oral.Susp) 30 ml PO DAILY PRN PRN Reason: Constipation Magnesium Hydroxide (Milk Of Magnesia 30 Ml Oral.Susp) 30 ml PO DAILY PRN PRN Reason: Constipation Melatonin (Melatonin 3 Mg Tablet) 6 mg PO BEDTIME PRN PRN Reason: Insomnia Naloxone HCl (Naloxone Hcl 0.4 Mg/Ml Vial) 0.04 mg IVPUSH Q5M PRN PRN Reason: Excessive sedation or RR < 8 Sodium Chloride (0.9 % Sodium Chloride Flush 3 Ml Syringe) 3 ml IVFLUSH [facility] Last Admin: 01/12/25 07:14 Dose: Not Given Documented By: ANEUDY Non-Admin Reason: IV Running Sodium Chloride (0.9 % Sodium Chloride Flush 3 Ml Syringe) 3 ml IVFLUSH [facility] Last Admin: 01/12/25 07:14 Dose: Not Given Documented By: ANEUDY Non-Admin Reason: IV Running Labs 01/12/25 05:29 01/12/25 05:29 Labs: Laboratory Results - last 24 hr 01/11/25 01/12/25 10:59 05:29 MCV 94.9 MCH 31.5 MCHC 33.3 RDW 11.9 Plt Count 321 MPV 9.2 L Absolute Nucleated RBC 0.000 Nucleated RBC % (auto) 0.0 Anion Gap 10 L Estim Creat Clear Calc 106.5 Estimated GFR > 60 Random Glucose 100 Calcium 7.9 L D Urine Color Dark Yellow Urine Appearance Clear Urine pH 7.0 Ur Specific [place] >= 1.030 H Urine Protein Trace Urine Glucose (UA) Negative Urine Ketones 40 Urine Blood Negative Urine Nitrite Negative Ur Leukocyte Esterase Negative Procedures Date of Service Date of Service: 01/12/25 Progress Note: A&P Assessment and plan (1) Small bowel obstruction: Status: Acute Assessment and Plan: Status post small bowel resection Clinically looks well Dressings changed Abdomen is soft and benign Okay to try clear liquids today Encouraged ambulation Instructed on incentive spirometry Labs okay Time Spent With Patient Time: Total time managing care of this patient today ____ minutes. Quality Stroke Does the patient have a stroke diagnosis?: No VTE Prior VTE?: No VTE Risk Level:: Surgical - low VTE Device Contraindication: N/A - Device Ordered VTE Drug Contraindication: Treatment Not Indicated
--- NOTE | 2025-01-12 10:19 | HO.POSTANES ---
Post Anesthesia Evaluation Post Anesthesia Evaluation Date of Service: 01/12/25 Vital Signs: Vital Signs Temp Pulse Resp BP Pulse Ox O2 Del Method O2 Flow Rate 01/12/25 08:25 98.3 F 106 H 18 133/82 96 01/12/25 03:05 97.5 F 95 18 120/70 95 Nasal Cannula 2 01/11/25 23:15 98.4 F 100 17 126/73 96 Nasal Cannula 2 Anesthesia: General Endotracheal-GETA Mental Status: Awake Pain Control: Satisfactory Nausea/Vomiting: None Hydration: Adequate Anesthesia-Related Issues: No Anes. Related Issues
--- NOTE | 2025-01-12 10:41 | PC.NURSE ---
[place] cath removed 01/12/25 @1030 DTV at between 1600and 1800
--- NOTE | 2025-01-12 10:43 | PC.NURSE ---
1:1 sitter maintained for john mejia has a hx of PICA
[2025-01-12] MEDS: Acetaminophen 1,000 MG/100 ML PIGGYBACK 400 MG IV ×3 (11:53→21:34)
[2025-01-12] MEDS: oxyCODONE HCl Immed Release 5 MG TABLET PO ×2 (11:55→16:14)
[2025-01-12 12:40] VITALS: BP 136/84; PULSE 114; RESP 20; TEMP 36.8; O2SAT 97
--- NOTE | 2025-01-12 14:45 | MHC.CM.PN ---
PT FROM [facility] HE WILL RETURN WHEN DCD PTS MOTHER/HCP/GUARDIAN COMFIRMED SAME
--- NOTE | 2025-01-12 14:49 | PC.NURSE ---
Pts Mother Di Herman [phone] given an update on pts status
--- NOTE | 2025-01-12 16:15 | PC.NURSE ---
attempted several times to educate pt use of incentive spirometer pt becomes agitated begins rocking and rapid hand movements, told pt we will revisit this at a later time
[2025-01-12 16:39] VITALS: BP 137/68; PULSE 97; RESP 18; TEMP 36.6; O2SAT 99
--- NOTE | 2025-01-12 16:56 | PM.EVENT ---
Event Note Date of Service: 01/13/25 Event Note: KUB done showed residual FB, rounded, that seems to be in the right colon the largest piece/pieces seen on initial imaging are no longer seen pt see on afternoon rounds irmamoira Marco Antonio samayoa remains benign, subjectively doing well hopefully he passes this metallic FB with BMs Time Spent With Patient Time: Total time managing care of this patient today ____ minutes.
[2025-01-12 19:05] VITALS: BP 128/72; PULSE 82; RESP 20; TEMP 36.5; O2SAT 96
[2025-01-12 23:13] VITALS: BP 124/59; PULSE 72; RESP 16; TEMP 36.2; O2SAT 95
[2025-01-13 03:01] VITALS: BP 117/67; PULSE 71; RESP 18; TEMP 36.5; O2SAT 96
[2025-01-13] MEDS: Lactated Ringers 1,000 ML 125 ML IVCONT (04:58)
[2025-01-13] MEDS: Acetaminophen 1,000 MG/100 ML PIGGYBACK 400 MG IV (04:58)
--- NOTE | 2025-01-13 06:38 | P.PNGS_ITS ---
Subjective Subjective Date of Service: 01/13/25 <[facility] - Last Filed: 01/13/25 06:59> 01/13/25 <Karen Mg PA-C - Last Filed: 01/13/25 10:09> 01/13/25 <Parminder Madrid MD - Last Filed: 01/13/25 10:40> Interval history: Patient seen and examined this morning. History is limited due to cognitive function. States he is in a lot of pain. Has been ambulating in hallways. States he has had a bowel movement and is urinating without difficulty and that he is tolerating clear liquids. Unable to state if he is having any nausea or if he is passing flatus. States he feels dizzy but only when sitting in bed. Denies chest pain or shortness of breath. <[facility] Last Filed: 01/13/25 06:59> Physical Exam 2 Vital Signs: Vital Signs: Last Vital Signs Temp 97.7 F 01/13/25 03:01 Pulse 71 01/13/25 03:01 Resp 18 01/13/25 03:01 BP 117/67 01/13/25 03:01 Pulse Ox 96 01/13/25 03:01 O2 Del Method Room Air 01/13/25 03:01 O2 Flow Rate 2 01/12/25 03:05 BMI result Body Mass Index 24.2 <[facility] - Last Filed: 01/13/25 06:59> Const: Other: sitting up in bed, awake, anxious. <[facility] - Last Filed: 01/13/25 06:59> Resp: Effort & Inspection: normal respiratory effort and able to speak in complete sentences <[facility] Last Filed: 01/13/25 06:59> GI: Other: Abdomen is softly distended, diffuse tenderness to palpation, without guarding. <[facility] Last Filed: 01/13/25 06:59> Objective Data Active Medications Acetaminophen (Acetaminophen 325 Mg Tablet) 650 mg PO Q6H PRN PRN Reason: Pain, Mild 1-3,fever,headache Calcium Carbonate (Calcium Carbonate 750 Mg Tab.Chew) 750 mg PO Q4H PRN PRN Reason: Heartburn Hydromorphone HCl (Hydromorphone Hcl 1 Mg/Ml Syringe) 0.5 mg IVPUSH Q4H PRN; Protocol PRN Reason: Pain, Severe (Pain Scale 7-10) Last Admin: 01/12/25 09:06 Dose: 0.5 mg Documented By: ANEUDY Lactated Ringer's (Lr) 1,000 mls @ 125 mls/hr IVCONT .Q8H [facility] Last Admin: 01/13/25 04:58 Dose: 125 mls/hr Documented By: JAMES Magnesium Hydroxide (Milk Of Magnesia 30 Ml Oral.Susp) 30 ml PO DAILY PRN PRN Reason: Constipation Magnesium Hydroxide (Milk Of Magnesia 30 Ml Oral.Susp) 30 ml PO DAILY PRN PRN Reason: Constipation Melatonin (Melatonin 3 Mg Tablet) 6 mg PO BEDTIME PRN PRN Reason: Insomnia Naloxone HCl (Naloxone Hcl 0.4 Mg/Ml Vial) 0.04 mg IVPUSH Q5M PRN PRN Reason: Excessive sedation or RR < 8 Oxycodone HCl (Oxycodone Hcl Immed Release 5 Mg Tablet) 5 mg PO Q4H PRN PRN Reason: Pain, Severe (Pain Scale 7-10) Last Admin: 01/12/25 16:14 Dose: 5 mg Documented By: HOLGER Sodium Chloride (0.9 % Sodium Chloride Flush 3 Ml Syringe) 3 ml IVFLUSH [facility] Last Admin: 01/12/25 21:53 Dose: Not Given Documented By: JAMES Non-Admin Reason: IV Running Sodium Chloride (0.9 % Sodium Chloride Flush 3 Ml Syringe) [facility] Last Admin: 01/12/25 21:53 Dose: Not Given Documented By: JAMES Non-Admin Reason: Duplicate Order <[facility] - Last Filed: 01/13/25 06:59> Labs CBC & Chem 7: 01/12/25 05:29 01/12/25 05:29 <[facility] - Last Filed: 01/13/25 06:59> Labs: Laboratory Results - last 24 hr 01/12/25 05:29 Anion Gap 10 L Estim Creat Clear Calc 106.5 Estimated GFR > 60 Random Glucose 100 Calcium 7.9 L D <Fmvxni-HN-Psufyqa-Ah Esa - Last Filed: 01/13/25 06:59> Procedures Date of Service Date of Service: 01/13/25 <[facility] - Last Filed: 01/13/25 06:59> 01/13/25 <Karen Mg PA-C - Last Filed: 01/13/25 10:09> 01/13/25 <Parminder Madrid MD - Last Filed: 01/13/25 10:40> Progress Note: A&P Assessment and plan (1) Small bowel obstruction: Status: Acute <[facility] - Last Filed: 01/13/25 06:59> Assessment and Plan: Patient is POD #2 s/p exploratory laparotomy, enterolysis, enterectomy. Patient with history of cognitive impairment, therefore, history and physical are both limited. Abdomen softly distended, tenderness to palpation in periumbilical and RUQ. Unable to fully visualize abdomen, will try again later in the day. Will continue to monitor labs. Continue IVF. Continue clear liquid diet. Continue current pain regimen. Increase OOB/Ambulation. IS encoruaged. < [facility] - Last Filed: 01/13/25 06:59> Patient is POD #2 s/p exploratory laparotomy, enterolysis, enterectomy. Patient with history of cognitive impairment, therefore, history and physical are both limited. Abdomen softly distended, tenderness to palpation in periumbilical and RUQ. Unable to fully visualize abdomen, will try again later in the day. Will continue to monitor labs. Continue IVF. Continue clear liquid diet. Continue current pain regimen. Increase OOB/Ambulation. IS encoruaged. Seen independently. Patient POD #2 s/p exploratory laparotomy, enterolysis, enterectomy for SBO, SB volvulus. Passing flatus and having bowel movements. Tolerating clear liquids. Pain minimal and comfortable with oxycodone. Abd is very benign, softly distended, clean incision. Will dc IVF. Advance to solid diet. Resume home meds. Possibly dc later today or tomorrow. <Karen Mg PA-C - Last Filed: 01/13/25 10:09> Time Spent With Patient Time: Total time managing care of this patient today ____ minutes. <Chrnrb-AU-Fnddsej- Adalid - Last Filed: 01/13/25 06:59> Quality Stroke Does the patient have a stroke diagnosis?: No <Ejvnbd-YJ-Guieasd- Adalid - Last Filed: 01/13/25 06:59> VTE Prior VTE?: No <Nowuro-VO-Drvgriq- Adalid - Last Filed: 01/13/25 06:59> VTE Risk Level:: Surgical - low <Konszz-WB-Htgzcth- Adalid - Last Filed: 01/13/25 06:59> VTE Device Contraindication: N/A - Device Ordered <Mpusgo-QM-Abzoypq- Adalid - Last Filed: 01/13/25 06:59> VTE Drug Contraindication: Treatment Not Indicated <Wwcezr-AZ-Rbrsdpw- Adalid - Last Filed: 01/13/25 06:59>
[2025-01-13 07:14] VITALS: BP 135/71; PULSE 85; RESP 18; TEMP 36.6; O2SAT 98
[2025-01-13] MEDS: oxyCODONE HCl Immed Release 5 MG TABLET PO (09:02)
[2025-01-13] MEDS: Benztropine Mesylate 1 MG TABLET PO ×2 (10:20→21:45)
[2025-01-13] MEDS: FLUoxetine HCl 20 MG CAPSULE 60 MG PO (10:20)
[2025-01-13] MEDS: clonazePAM 1 MG TABLET PO (10:20)
[2025-01-13 11:46] VITALS: BP 119/67; PULSE 67; RESP 18; TEMP 36.5; O2SAT 96
--- NOTE | 2025-01-13 12:15 | PC.NURSE ---
Pt Update provided to [place] Nurse Catalina
[2025-01-13 14:55] VITALS: BP 134/75; PULSE 76; RESP 16; TEMP 36.3; O2SAT 100
[2025-01-13] MEDS: chlorproMAZINE HCl 25 MG TABLET 50 MG PO ×2 (16:17→21:45)
[2025-01-13] MEDS: 0.9 % Sodium Chloride Flush 3 ML SYRINGE IVFLUSH ×2 (16:19→21:46)
[2025-01-13 19:23] VITALS: BP 127/74; PULSE 73; RESP 20; TEMP 36.4; O2SAT 97
[2025-01-13] MEDS: traZODone HCL 50 MG TABLET PO (21:45)
[2025-01-13] MEDS: Zolpidem Tartrate 5 MG TABLET PO (21:45)
[2025-01-13 23:57] VITALS: BP 121/69; PULSE 73; RESP 18; TEMP 37; O2SAT 97
[2025-01-14 04:00] VITALS: BP 128/73; PULSE 75; RESP 16; TEMP 36.9; O2SAT 94
[2025-01-14 07:06] LABS: Anion Gap 12 (12-20); Blood Urea Nitrogen 10 mg/dL (9-16); Calcium 8.1 mg/dL (8.4-10.2); Carbon Dioxide 22 mmol/L (22-29); Chloride 108 mmol/L (96-108); Creatinine Clr Calc Pharmacy 125.3; Estimated Glomerular Filt Rate > 60; Glucose Fasting 75 mg/dL (60-99); Potassium 3.8 mmol/L (3.3-5.1); Sodium 138 mmol/L (135-145)
[2025-01-14 07:28] VITALS: BP 123/75; PULSE 78; RESP 12; TEMP 36.9; O2SAT 98
--- NOTE | 2025-01-14 08:38 | PM.PNGS ---
Subjective Subjective Date of Service: 01/14/25 Interval history: Feels ok today. Feels less bloated. Denies nausea. Passing flatus but no BM yet. Physical Exam Vital Signs: Vital Signs: Last Vital Signs Temp 98.5 F 01/14/25 07:28 Pulse 78 01/14/25 07:28 Resp 12 01/14/25 07:28 BP 123/75 01/14/25 07:28 Pulse Ox 98 01/14/25 07:28 O2 Del Method Room Air 01/14/25 07:28 O2 Flow Rate 2 01/12/25 03:05 BMI result Body Mass Index 24.2 Const: General: comfortable, no acute distress and alert Resp: Effort & Inspection: normal respiratory effort GI: Inspection: Yes distended and Yes incision (clean, steris intact ) Palpation (GI): Soft to palpation, Tenderness to palpation present (GI) (very mild incisional) and no guarding Skin: General skin exam: no rashes or lesions noted Psych: Other: flat affect Objective Data Active Medications Acetaminophen (Acetaminophen 325 Mg Tablet) 650 mg PO Q6H PRN PRN Reason: Pain, Mild 1-3,fever,headache Benztropine Mesylate (Benztropine Mesylate 1 Mg Tablet) 1 mg PO BID [facility] Last Admin: 01/13/25 21:45 Dose: 1 mg Documented By: JAMES Calcium Carbonate (Calcium Carbonate 750 Mg Tab.Chew) 750 mg PO Q4H PRN PRN Reason: Heartburn Chlorpromazine HCl (Chlorpromazine Hcl 100 Mg Tablet) 200 mg PO BID PRN PRN Reason: Agitation Chlorpromazine HCl (Chlorpromazine Hcl 25 Mg Tablet) 50 mg PO TID [facility] Last Admin: 01/13/25 21:45 Dose: 50 mg Documented By: JAMES Clonazepam (Clonazepam 1 Mg Tablet) 1 mg PO DAILY [facility] Last Admin: 01/13/25 10:20 Dose: 1 mg Documented By: ANEUDY Fluoxetine HCl (Fluoxetine Hcl 20 Mg Capsule) 60 mg PO DAILY [facility] Last Admin: 01/13/25 10:20 Dose: 60 mg Documented By: ANEUDY Hydromorphone HCl (Hydromorphone Hcl 1 Mg/Ml Syringe) 0.5 mg IVPUSH Q4H PRN; Protocol PRN Reason: Pain, Severe (Pain Scale 7-10) Last Admin: 01/12/25 09:06 Dose: 0.5 mg Documented By: ANEUDY Lactated Ringer's (Lr) 1,000 mls @ 125 mls/hr IVCONT .Q8H [facility] Last Admin: 01/13/25 20:37 Dose: Not Given Documented By: JAMES Non-Admin Reason: See Note Comments: dc'd per previous rn Magnesium Hydroxide (Milk Of Magnesia 30 Ml Oral.Susp) 30 ml PO DAILY PRN PRN Reason: Constipation Magnesium Hydroxide (Milk Of Magnesia 30 Ml Oral.Susp) 30 ml PO DAILY PRN PRN Reason: Constipation Melatonin (Melatonin 3 Mg Tablet) 6 mg PO BEDTIME PRN PRN Reason: Insomnia Ondansetron HCl (Ondansetron Hcl 4 Mg/2 Ml Vial) 4 mg IVPUSH Q8H PRN PRN Reason: Nausea and Vomiting Oxycodone HCl (Oxycodone Hcl Immed Release 5 Mg Tablet) 5 mg PO Q4H PRN PRN Reason: Pain, Severe (Pain Scale 7-10) Last Admin: 01/13/25 09:02 Dose: 5 mg Documented By: ANEUDY Sodium Chloride (0.9 % Sodium Chloride Flush 3 Ml Syringe) 3 ml IVFLUSH [facility] Last Admin: 01/13/25 21:46 Dose: 3 ml Documented By: JAMES Sodium Chloride (0.9 % Sodium Chloride Flush 3 Ml Syringe) 3 ml IVFLUSH [facility] Last Admin: 01/13/25 21:46 Dose: Not Given Documented By: JAMES Non-Admin Reason: Duplicate Order Trazodone HCl (Trazodone Hcl 50 Mg Tablet) 50 mg PO DAILY PRN PRN Reason: Agitation Trazodone HCl (Trazodone Hcl 50 Mg Tablet) 50 mg PO BEDTIME [facility] Last Admin: 01/13/25 21:45 Dose: 50 mg Documented By: JAMES Zolpidem Tartrate (Zolpidem Tartrate 5 Mg Tablet) 5 mg PO BEDTIME [facility] Last Admin: 01/13/25 21:45 Dose: 5 mg Documented By: JAMES Labs 01/12/25 05:29 01/14/25 05:39 Labs: Laboratory Results - last 24 hr 01/14/25 05:39 Hold Purple Top SEE NOTE Anion Gap 12 Estim Creat Clear Calc 125.3 Estimated GFR > 60 Fasting Glucose 75 Calcium 8.1 L Procedures Date of Service Date of Service: 01/14/25 Progress Note: A&P Assessment and plan (1) Foreign body ingestion: Status: Acute (2) Small bowel obstruction: Status: Acute Plan Patient POD #3 s/p exploratory laparotomy, enterolysis, enterectomy for SBO, SB volvulus. Increasing distention yesterday following solid diet. VSS. Abd remains distended this am. Continue clear liquids for now, increasing ambulation and activity. Slow return of GI function expected due to intraop findings, surgery. Time Spent With Patient Time: Total time managing care of this patient today ____ minutes. Quality Stroke Does the patient have a stroke diagnosis?: No VTE Prior VTE?: No VTE Risk Level:: Surgical - low VTE Device Contraindication: N/A - Device Ordered VTE Drug Contraindication: Treatment Not Indicated
[2025-01-14] MEDS: FLUoxetine HCl 20 MG CAPSULE 60 MG PO (08:52)
[2025-01-14] MEDS: chlorproMAZINE HCl 25 MG TABLET 50 MG PO ×3 (08:52→21:17)
[2025-01-14] MEDS: Benztropine Mesylate 1 MG TABLET PO ×2 (08:53→21:17)
[2025-01-14] MEDS: clonazePAM 1 MG TABLET PO (08:53)
[2025-01-14] MEDS: 0.9 % Sodium Chloride Flush 3 ML SYRINGE IVFLUSH ×5 (08:55→21:17)
[2025-01-14] MEDS: oxyCODONE HCl Immed Release 5 MG TABLET PO ×2 (10:48→21:16)
[2025-01-14 11:38] VITALS: BP 119/70; PULSE 72; RESP 18; TEMP 36.6; O2SAT 96
[2025-01-14 15:57] VITALS: BP 124/75; PULSE 80; RESP 18; TEMP 36.4; O2SAT 96
[2025-01-14 19:27] VITALS: BP 125/66; PULSE 70; RESP 18; TEMP 37; O2SAT 94
[2025-01-14] MEDS: Zolpidem Tartrate 5 MG TABLET PO (21:17)
[2025-01-14] MEDS: traZODone HCL 50 MG TABLET PO (21:17)
[2025-01-14 23:56] VITALS: BP 131/70; PULSE 66; RESP 18; TEMP 37; O2SAT 96
[2025-01-15 03:43] VITALS: BP 130/78; PULSE 70; RESP 18; TEMP 36.4; O2SAT 97
[2025-01-15] MEDS: oxyCODONE HCl Immed Release 5 MG TABLET PO (05:49)
[2025-01-15 07:00] VITALS: BP 138/71; PULSE 88; RESP 18; TEMP 36; O2SAT 99
[2025-01-15 08:00] VITALS: BMI 23.8
[2025-01-15] MEDS: FLUoxetine HCl 20 MG CAPSULE 60 MG PO (08:55)
[2025-01-15] MEDS: Benztropine Mesylate 1 MG TABLET PO ×2 (08:55→20:47)
[2025-01-15] MEDS: clonazePAM 1 MG TABLET PO (08:55)
[2025-01-15] MEDS: chlorproMAZINE HCl 25 MG TABLET 50 MG PO ×3 (08:55→20:46)
--- NOTE | 2025-01-15 09:05 | PM.PNGS ---
Subjective Subjective Date of Service: 01/15/25 Interval history: Reports some flatus, no BM. Denies nausea. Pain minimal. Physical Exam Vital Signs: Vital Signs: Last Vital Signs Temp 96.8 F 01/15/25 07:00 Pulse 88 01/15/25 07:00 Resp 18 01/15/25 07:00 BP 138/71 01/15/25 07:00 Pulse Ox 99 01/15/25 07:00 O2 Del Method Room Air 01/15/25 07:00 O2 Flow Rate 2 01/12/25 03:05 BMI result Body Mass Index 24.2 Const: General: comfortable, no acute distress and alert Resp: Effort & Inspection: normal respiratory effort GI: Inspection: Yes distended and Yes incision (clean) Palpation (GI): Soft to palpation Skin: General skin exam: no rashes or lesions noted Objective Data Active Medications Acetaminophen (Acetaminophen 325 Mg Tablet) 650 mg PO Q6H PRN PRN Reason: Pain, Mild 1-3,fever,headache Benztropine Mesylate (Benztropine Mesylate 1 Mg Tablet) 1 mg PO BID [facility] Last Admin: 01/15/25 08:55 Dose: 1 mg Documented By: JEFF Calcium Carbonate (Calcium Carbonate 750 Mg Tab.Chew) 750 mg PO Q4H PRN PRN Reason: Heartburn Chlorpromazine HCl (Chlorpromazine Hcl 100 Mg Tablet) 200 mg PO BID PRN PRN Reason: Agitation Chlorpromazine HCl (Chlorpromazine Hcl 25 Mg Tablet) 50 mg PO TID [facility] Last Admin: 01/15/25 08:55 Dose: 50 mg Documented By: JEFF Clonazepam (Clonazepam 1 Mg Tablet) 1 mg PO DAILY [facility] Last Admin: 01/15/25 08:55 Dose: 1 mg Documented By: JEFF Fluoxetine HCl (Fluoxetine Hcl 20 Mg Capsule) 60 mg PO DAILY [facility] Last Admin: 01/15/25 08:55 Dose: 60 mg Documented By: JEFF Hydromorphone HCl (Hydromorphone Hcl 1 Mg/Ml Syringe) 0.5 mg IVPUSH Q4H PRN; Protocol PRN Reason: Pain, Severe (Pain Scale 7-10) Last Admin: 01/12/25 09:06 Dose: 0.5 mg Documented By: ANEUDY Magnesium Hydroxide (Milk Of Magnesia 30 Ml Oral.Susp) 30 ml PO DAILY PRN PRN Reason: Constipation Magnesium Hydroxide (Milk Of Magnesia 30 Ml Oral.Susp) 30 ml PO DAILY PRN PRN Reason: Constipation Melatonin (Melatonin 3 Mg Tablet) 6 mg PO BEDTIME PRN PRN Reason: Insomnia Ondansetron HCl (Ondansetron Hcl 4 Mg/2 Ml Vial) 4 mg IVPUSH Q8H PRN PRN Reason: Nausea and Vomiting Oxycodone HCl (Oxycodone Hcl Immed Release 5 Mg Tablet) 5 mg PO Q4H PRN PRN Reason: Pain, Severe (Pain Scale 7-10) Last Admin: 01/15/25 05:49 Dose: 5 mg Documented By: NATASHA Sodium Chloride (0.9 % Sodium Chloride Flush 3 Ml Syringe) 3 ml IVFLUSH [facility] Last Admin: 01/15/25 09:00 Dose: Not Given Documented By: JEFF Non-Admin Reason: Previously Administered Sodium Chloride (0.9 % Sodium Chloride Flush 3 Ml Syringe) 3 ml IVFLUSH [facility] Last Admin: 01/15/25 09:00 Dose: Not Given Documented By: JEFF Non-Admin Reason: Duplicate Order Trazodone HCl (Trazodone Hcl 50 Mg Tablet) 50 mg PO DAILY PRN PRN Reason: Agitation Trazodone HCl (Trazodone Hcl 50 Mg Tablet) 50 mg PO BEDTIME [facility] Last Admin: 01/14/25 21:17 Dose: 50 mg Documented By: NATASHA Zolpidem Tartrate (Zolpidem Tartrate 5 Mg Tablet) 5 mg PO BEDTIME [facility] Last Admin: 01/14/25 21:17 Dose: 5 mg Documented By: NATASHA Labs 01/12/25 05:29 01/14/25 05:39 Procedures Date of Service Date of Service: 01/15/25 Progress Note: A&P Assessment and plan (1) Small bowel obstruction: Status: Acute (2) Foreign body ingestion: Status: Acute Plan Patient POD #4 s/p exploratory laparotomy, enterolysis, enterectomy for SBO, SB volvulus. Remains distended. VSS. Continue clear liquids for now, increasing ambulation and activity. Slow return of GI function expected due to intraop findings, surgery. Discussed with patient. Time Spent With Patient Time: Total time managing care of this patient today ____ minutes. Quality Stroke Does the patient have a stroke diagnosis?: No VTE Prior VTE?: No VTE Risk Level:: Surgical - low VTE Device Contraindication: N/A - Device Ordered VTE Drug Contraindication: Treatment Not Indicated
[2025-01-15 11:16] LABS: MANUAL DIFF FLAG NO
[2025-01-15 11:20] LABS: Basophils Percent Auto 0.5 % (0-2); Eosinophils Absolute Auto 0.3 X10*3/uL (0.0-0.4); Eosinophils Percent Auto 3.6 % (0-4); Hematocrit 42.6 % (42.0-52.0); Imm Gran Abs Auto 0.08 X10*3/uL (0.00-0.03); Lymphocytes Absolute Auto 1.6 X10*3/uL (1.2-4.9); Lymphocytes Percent Auto 19.7 % (20-40); Mean Corpuscular HGB Conc 32.9 g/dl (31.0-36.0); Mean Corpuscular Hemoglobin 31.1 pg (27.0-33.0); Mean Corpuscular Volume 94.7 fL (80.0-98.0); Monocytes Absolute Auto 0.4 X10*3/uL (0.1-1.2); Monocytes Percent Auto 5.4 % (2-11); Neutrophils Absolute Auto 5.7 x10*3/uL (2.0-8.3); Neutrophils Percent Auto 69.8 % (45-73); Platelet Count 340 X10*3/uL (160-400); Red Cell Distribution Width 11.7 % (11.0-16.0); White Blood Count 8.1 X10*3/uL (4.8-10.8)
--- NOTE | 2025-01-15 11:28 | MHC.CM.PN ---
CM CALLED MIKE AT [facility] [phone], SHE CONFIRMS THEY WILL ACCEPT PT BACK PT WILL NEED A SECTION 12 FOR SAFE TRANSPORT
--- NOTE | 2025-01-15 11:29 | MHC.CLN ---
NUTRITION CONSULT FOR PPN RECOMMENDATIONS. REQUESTED LABS FOR TODAY. COMMUNICATED WITH PHARMACY. RECOMMEND START PPN TODAY AT 50 ML PER HOUR, 51 G PROTEIN, 120 G DEXTROSE, 612 KCALS. REPLETE LYTES NEEDED. SEE CLINICAL NUTRITION ASSESSMENT 01/15/25.
[2025-01-15 11:30] LABS: INTERNATIONAL NORM RATIO 1.1 (0.9-1.1); Prothrombin Time 12.6 SEC (10.9-12.4)
[2025-01-15 11:32] VITALS: BMI 24.2
[2025-01-15 11:33] LABS: Anion Gap 13 (12-20); Blood Urea Nitrogen 10 mg/dL (9-16); Calcium 8.6 mg/dL (8.4-10.2); Carbon Dioxide 23 mmol/L (22-29); Chloride 108 mmol/L (96-108); Creatinine Clr Calc Pharmacy 117.3; Estimated Glomerular Filt Rate > 60; Magnesium 2.1 mg/dL (1.6-2.6); Phosphorus 2.2 mg/dL (2.7-4.5); Potassium 3.9 mmol/L (3.3-5.1); Sodium 140 mmol/L (135-145); Triglycerides 162 mg/dL (<150)
[2025-01-15 11:46] VITALS: BP 127/69; PULSE 97; RESP 18; TEMP 36.4; O2SAT 98
[2025-01-15 12:04] LABS: Glucose, Whole Blood 87 mg/dL (60-115)
[2025-01-15 15:44] VITALS: BP 135/65; PULSE 81; RESP 18; TEMP 37.1; O2SAT 96
[2025-01-15 16:28] LABS: Glucose, Whole Blood 77 mg/dL (60-115)
[2025-01-15 19:28] VITALS: BP 120/69; PULSE 74; RESP 18; TEMP 37.3; O2SAT 95
[2025-01-15 20:40] LABS: Glucose, Whole Blood 77 mg/dL (60-115)
[2025-01-15] MEDS: Parenteral Nutrition 1,200 ML 50 ML IV (20:45)
[2025-01-15] MEDS: 0.9 % Sodium Chloride Flush 3 ML SYRINGE IVFLUSH (20:47)
[2025-01-15] MEDS: traZODone HCL 50 MG TABLET PO (20:47)
[2025-01-15] MEDS: Zolpidem Tartrate 5 MG TABLET PO (20:47)
[2025-01-15 23:40] VITALS: BP 128/69; PULSE 75; RESP 18; TEMP 36.6; O2SAT 98
[2025-01-16 03:32] VITALS: BP 115/56; PULSE 56; RESP 18; TEMP 36.7; O2SAT 95
[2025-01-16 07:14] VITALS: BP 144/79; PULSE 72; RESP 16; TEMP 36.6; O2SAT 99
[2025-01-16 07:21] LABS: Glucose, Whole Blood 93 mg/dL (60-115)
[2025-01-16 07:44] LABS: Anion Gap 10 (12-20); Blood Urea Nitrogen 11 mg/dL (9-16); Calcium 8.2 mg/dL (8.4-10.2); Carbon Dioxide 23 mmol/L (22-29); Chloride 109 mmol/L (96-108); Estimated Glomerular Filt Rate > 60; Magnesium 2.2 mg/dL (1.6-2.6); Phosphorus 2.5 mg/dL (2.7-4.5); Sodium 138 mmol/L (135-145)
[2025-01-16 08:00] VITALS: BMI 25.5
--- NOTE | 2025-01-16 08:56 | PM.PNGS ---
Subjective Subjective Date of Service: 01/16/25 Interval history: Feels ok. Had two large BMs, passing more flatus. Ambulating the halls. Physical Exam Vital Signs: Vital Signs: Last Vital Signs Temp 97.9 F 01/16/25 07:14 Pulse 72 01/16/25 07:14 Resp 16 01/16/25 07:14 BP 144/79 H 01/16/25 07:14 Pulse Ox 99 01/16/25 07:14 O2 Del Method Room Air 01/16/25 07:14 O2 Flow Rate 2 01/12/25 03:05 BMI result Body Mass Index 24.2 Const: General: comfortable, no acute distress and alert Orientation/consciousness: patient oriented x3 Resp: Effort & Inspection: normal respiratory effort GI: Inspection: Yes distended (mild, soft, improved) and Yes incision (clean) Palpation (GI): Soft to palpation and nontender Skin: General skin exam: no rashes or lesions noted Neuro: General: patient oriented x3 Objective Data Active Medications Acetaminophen (Acetaminophen 325 Mg Tablet) 650 mg PO Q6H PRN PRN Reason: Pain, Mild 1-3,fever,headache Benztropine Mesylate (Benztropine Mesylate 1 Mg Tablet) 1 mg PO BID [facility] Last Admin: 01/15/25 20:47 Dose: 1 mg Documented By: JULIUS Calcium Carbonate (Calcium Carbonate 750 Mg Tab.Chew) 750 mg PO Q4H PRN PRN Reason: Heartburn Chlorpromazine HCl (Chlorpromazine Hcl 100 Mg Tablet) 200 mg PO BID PRN PRN Reason: Agitation Chlorpromazine HCl (Chlorpromazine Hcl 25 Mg Tablet) 50 mg PO TID [facility] Last Admin: 01/15/25 20:46 Dose: 50 mg Documented By: JULIUS Clonazepam (Clonazepam 1 Mg Tablet) 1 mg PO DAILY [facility] Last Admin: 01/15/25 08:55 Dose: 1 mg Documented By: JEFF Fluoxetine HCl (Fluoxetine Hcl 20 Mg Capsule) 60 mg PO DAILY [facility] Last Admin: 01/15/25 08:55 Dose: 60 mg Documented By: JEFF Hydromorphone HCl (Hydromorphone Hcl 1 Mg/Ml Syringe) 0.5 mg IVPUSH Q4H PRN; Protocol PRN Reason: Pain, Severe (Pain Scale 7-10) Last Admin: 01/12/25 09:06 Dose: 0.5 mg Documented By: ANEUDY Nutrition (Parenteral) (Parenteral Nutrition) 1,200 mls @ 50 mls/hr IV .Q24H [facility]; Protocol Stop: 01/16/25 20:59 Last Infusion: 01/15/25 20:53 Dose: 50 mls/hr Documented By: JULIUS Magnesium Hydroxide (Milk Of Magnesia 30 Ml Oral.Susp) 30 ml PO DAILY PRN PRN Reason: Constipation Magnesium Hydroxide (Milk Of Magnesia 30 Ml Oral.Susp) 30 ml PO DAILY PRN PRN Reason: Constipation Melatonin (Melatonin 3 Mg Tablet) 6 mg PO BEDTIME PRN PRN Reason: Insomnia Ondansetron HCl (Ondansetron Hcl 4 Mg/2 Ml Vial) 4 mg IVPUSH Q8H PRN PRN Reason: Nausea and Vomiting Oxycodone HCl (Oxycodone Hcl Immed Release 5 Mg Tablet) 5 mg PO Q4H PRN PRN Reason: Pain, Severe (Pain Scale 7-10) Last Admin: 01/15/25 05:49 Dose: 5 mg Documented By: NATASHA Sodium Chloride (0.9 % Sodium Chloride Flush 3 Ml Syringe) 3 ml IVFLUSH [facility] Last Admin: 01/15/25 20:47 Dose: 3 ml Documented By: JULIUS Sodium Chloride (0.9 % Sodium Chloride Flush 3 Ml Syringe) 3 ml IVFLUSH [facility] Last Admin: 01/15/25 23:54 Dose: Not Given Documented By: JULIUS Non-Admin Reason: IV Running Trazodone HCl (Trazodone Hcl 50 Mg Tablet) 50 mg PO DAILY PRN PRN Reason: Agitation Trazodone HCl (Trazodone Hcl 50 Mg Tablet) 50 mg PO BEDTIME [facility] Last Admin: 01/15/25 20:47 Dose: 50 mg Documented By: JULIUS Zolpidem Tartrate (Zolpidem Tartrate 5 Mg Tablet) 5 mg PO BEDTIME [facility] Last Admin: 01/15/25 20:47 Dose: 5 mg Documented By: JULIUS Labs 01/15/25 11:03 01/16/25 05:56 Labs: Laboratory Results - last 24 hr 02/20/25 02/20/25 02/20/25 11:03 12:00 16:13 MCV 94.7 MCH 31.1 MCHC 32.9 RDW 11.7 Plt Count 340 MPV 9.0 L Immature Gran % (Auto) 1.0 H Neut % (Auto) 69.8 Lymph % (Auto) 19.7 L Hudson % (Auto) 5.4 Eos % (Auto) 3.6 Baso % (Auto) 0.5 Lymph # (Auto) 1.6 Hudson # (Auto) 0.4 Eos # (Auto) 0.3 Baso # (Auto) 0.0 Abs Immat Gran (auto) 0.08 H Absolute Neuts (auto) 5.7 Absolute Nucleated RBC 0.000 Nucleated RBC % (auto) 0.0 Hold Purple Top PT 12.6 H INR 1.1 Anion Gap 13 Estim Creat Clear Calc 117.3 Estimated GFR > 60 POC Glucose 87 77 Calcium 8.6 D Phosphorus 2.2 L Magnesium 2.1 Albumin Triglycerides 162 H 01/15/25 01/16/25 01/16/25 20:26 05:56 07:17 MCV MCH MCHC RDW Plt Count MPV Immature Gran % (Auto) Neut % (Auto) Lymph % (Auto) Hudson % (Auto) Eos % (Auto) Baso % (Auto) Lymph # (Auto) Hudson # (Auto) Eos # (Auto) Baso # (Auto) Abs Immat Gran (auto) Absolute Neuts (auto) Absolute Nucleated RBC Nucleated RBC % (auto) Hold Purple Top SEE NOTE PT INR Anion Gap 10 L Estim Creat Clear Calc 122.0 Estimated GFR > 60 POC Glucose 77 93 Calcium 8.2 L Phosphorus 2.5 L Magnesium 2.2 Albumin 3.0 L Triglycerides Procedures Date of Service Date of Service: 01/16/25 Progress Note: A&P Assessment and plan (1) Foreign body ingestion: Status: Acute (2) Small bowel obstruction: Status: Acute Plan Patient POD #5 s/p exploratory laparotomy, enterolysis, enterectomy for SBO, SB volvulus. Now with good GI function. Remains softly distended but improving, incision clean. Will advance to solid diet. Possible dc back to facility today or tomorrow. Time Spent With Patient Time: Total time managing care of this patient today ____ minutes. Quality Stroke Does the patient have a stroke diagnosis?: No VTE Prior VTE?: No VTE Risk Level:: Surgical - low VTE Device Contraindication: N/A - Device Ordered VTE Drug Contraindication: Treatment Not Indicated
[2025-01-16] MEDS: chlorproMAZINE HCl 25 MG TABLET 50 MG PO ×3 (09:02→20:40)
[2025-01-16] MEDS: FLUoxetine HCl 20 MG CAPSULE 60 MG PO (09:02)
[2025-01-16] MEDS: Benztropine Mesylate 1 MG TABLET PO ×2 (09:02→20:40)
[2025-01-16] MEDS: clonazePAM 1 MG TABLET PO (09:02)
[2025-01-16 11:19] VITALS: BP 130/71; PULSE 77; RESP 16; TEMP 36.9; O2SAT 95
[2025-01-16 11:36] LABS: Glucose, Whole Blood 112 mg/dL (60-115)
--- NOTE | 2025-01-16 14:29 | MHC.CLN ---
F/U DIET ADVANCED TO REGULAR THIS MORNING. PPN DISCONTINUED. RD TO FOLLOW UP WEEKLY.
[2025-01-16 16:00] VITALS: BP 128/68; PULSE 75; RESP 16; TEMP 36.8; O2SAT 96
[2025-01-16] MEDS: oxyCODONE HCl Immed Release 5 MG TABLET PO (16:28)
[2025-01-16 16:38] LABS: Glucose, Whole Blood 93 mg/dL (60-115)
[2025-01-16 19:59] VITALS: BP 126/72; PULSE 68; RESP 18; TEMP 36.5; O2SAT 97
[2025-01-16 20:05] LABS: Glucose, Whole Blood 117 mg/dL (60-115)
[2025-01-16] MEDS: Zolpidem Tartrate 5 MG TABLET PO (20:40)
[2025-01-16] MEDS: traZODone HCL 50 MG TABLET PO ×2 (20:40)
[2025-01-16 23:15] VITALS: BP 120/67; PULSE 61; RESP 18; TEMP 36.3; O2SAT 97
[2025-01-17 03:41] VITALS: BP 121/72; PULSE 69; RESP 18; TEMP 36.3; O2SAT 97
[2025-01-17 07:13] LABS: Albumin Level 3.4 g/dL (3.5-5.0); Anion Gap 11 (12-20); Blood Urea Nitrogen 9 mg/dL (9-16); Calcium 8.4 mg/dL (8.4-10.2); Carbon Dioxide 23 mmol/L (22-29); Chloride 108 mmol/L (96-108); Creatinine Clr Calc Pharmacy 125.3; Estimated Glomerular Filt Rate > 60; Glucose Random 87 mg/dL (60-115); Potassium 4.3 mmol/L (3.3-5.1); Sodium 138 mmol/L (135-145)
[2025-01-17 07:29] VITALS: BP 126/77; PULSE 80; RESP 18; TEMP 36.1; O2SAT 100
[2025-01-17 07:35] LABS: Glucose, Whole Blood 103 mg/dL (60-115)
[2025-01-17 08:00] VITALS: BMI 23.1
--- NOTE | 2025-01-17 08:37 | MHC.CM.PN ---
Addendum entered by Roseanna Thurman 01/17/25 10:24: CORRECTION: TRANSPORT BOOKED FOR 1100 HOURS [facility]IA [facility] Addendum entered by Roseanna Thurman 01/17/25 10:14: CM CALLED PTS MOTHER/GUARDIAN, RHEA SANDERS [phone] SHE IS AWARE OF, AND IN AGREEMENT WITH, DC PLAN Original Note: PT CLEARED TO DC TODAY CM CALLED [facility] [phone] AND SPOKE TO LAZARO SHE IS AWARE TRANSPORT WILL BE ARRANGED FOR 1000 HOURS DCS FAXED TO HER AT [phone]
[2025-01-17] MEDS: FLUoxetine HCl 20 MG CAPSULE 60 MG PO (09:04)
[2025-01-17] MEDS: Benztropine Mesylate 1 MG TABLET PO (09:04)
[2025-01-17] MEDS: chlorproMAZINE HCl 25 MG TABLET 50 MG PO (09:04)
[2025-01-17] MEDS: clonazePAM 1 MG TABLET PO (09:05)
--- NOTE | 2025-01-17 09:40 | PM.PNGS ---
Subjective Subjective Date of Service: 01/17/25 Interval history: No new complaints Tolerating diet Good GI functions Mental status remains as baseline Physical Exam Vital Signs: Vital Signs: Last Vital Signs Temp 97.0 F 01/17/25 07:29 Pulse 80 01/17/25 07:29 Resp 18 01/17/25 07:29 BP 126/77 01/17/25 07:29 Pulse Ox 100 01/17/25 07:29 O2 Del Method Room Air 01/17/25 07:29 O2 Flow Rate 2 01/12/25 03:05 BMI result Body Mass Index 23.1 Const: General: comfortable and no acute distress Resp: Effort & Inspection: normal respiratory effort Cardio: Rate: regular rate GI: Other: Incision clean and dry Palpation (GI): Soft to palpation, not firm, nontender and no guarding Objective Data Active Medications Acetaminophen (Acetaminophen 325 Mg Tablet) 650 mg PO Q6H PRN PRN Reason: Pain, Mild 1-3,fever,headache Benztropine Mesylate (Benztropine Mesylate 1 Mg Tablet) 1 mg PO BID [facility] Last Admin: 01/17/25 09:04 Dose: 1 mg Documented By: ANEUDY Calcium Carbonate (Calcium Carbonate 750 Mg Tab.Chew) 750 mg PO Q4H PRN PRN Reason: Heartburn Chlorpromazine HCl (Chlorpromazine Hcl 100 Mg Tablet) 200 mg PO BID PRN PRN Reason: Agitation Chlorpromazine HCl (Chlorpromazine Hcl 25 Mg Tablet) 50 mg PO TID [facility] Last Admin: 01/17/25 09:04 Dose: 50 mg Documented By: ANEUDY Clonazepam (Clonazepam 1 Mg Tablet) 1 mg PO DAILY [facility] Last Admin: 01/17/25 09:05 Dose: 1 mg Documented By: ANEUDY Fluoxetine HCl (Fluoxetine Hcl 20 Mg Capsule) 60 mg PO DAILY [facility] Last Admin: 01/17/25 09:04 Dose: 60 mg Documented By: ANEUDY Hydromorphone HCl (Hydromorphone Hcl 1 Mg/Ml Syringe) 0.5 mg IVPUSH Q4H PRN; Protocol PRN Reason: Pain, Severe (Pain Scale 7-10) Last Admin: 01/12/25 09:06 Dose: 0.5 mg Documented By: HO.MCGINNM Magnesium Hydroxide (Milk Of Magnesia 30 Ml Oral.Susp) 30 ml PO DAILY PRN PRN Reason: Constipation Magnesium Hydroxide (Milk Of Magnesia 30 Ml Oral.Susp) 30 ml PO DAILY PRN PRN Reason: Constipation Melatonin (Melatonin 3 Mg Tablet) 6 mg PO BEDTIME PRN PRN Reason: Insomnia Ondansetron HCl (Ondansetron Hcl 4 Mg/2 Ml Vial) 4 mg IVPUSH Q8H PRN PRN Reason: Nausea and Vomiting Oxycodone HCl (Oxycodone Hcl Immed Release 5 Mg Tablet) 5 mg PO Q4H PRN PRN Reason: Pain, Severe (Pain Scale 7-10) Last Admin: 01/16/25 16:28 Dose: 5 mg Documented By: JEFF Sodium Chloride (0.9 % Sodium Chloride Flush 3 Ml Syringe) 3 ml IVFLUSH [facility] Last Admin: 01/17/25 07:02 Dose: Not Given Documented By: EDWIN Non-Admin Reason: Previously Administered Sodium Chloride (0.9 % Sodium Chloride Flush 3 Ml Syringe) 3 ml IVFLUSH [facility] Last Admin: 01/17/25 07:02 Dose: Not Given Documented By: EDWIN Non-Admin Reason: Previously Administered Trazodone HCl (Trazodone Hcl 50 Mg Tablet) 50 mg PO DAILY PRN PRN Reason: Agitation Last Admin: 01/16/25 20:40 Dose: 50 mg Documented By: ELIAS Trazodone HCl (Trazodone Hcl 50 Mg Tablet) 50 mg PO BEDTIME [facility] Last Admin: 01/16/25 20:40 Dose: 50 mg Documented By: ELIAS Zolpidem Tartrate (Zolpidem Tartrate 5 Mg Tablet) 5 mg PO BEDTIME [facility] Last Admin: 01/16/25 20:40 Dose: 5 mg Documented By: ELIAS Labs 01/15/25 11:03 01/17/25 06:37 Labs: Laboratory Results - last 24 hr 01/16/25 01/16/25 01/16/25 11:25 16:29 20:01 Anion Gap Estim Creat Clear Calc Estimated GFR POC Glucose 112 93 117 H Random Glucose Calcium Albumin 01/17/25 01/17/25 06:37 07:31 Anion Gap 11 L Estim Creat Clear Calc 125.3 Estimated GFR > 60 POC Glucose 103 Random Glucose 87 Calcium 8.4 Albumin 3.4 L Procedures Date of Service Date of Service: 01/17/25 Progress Note: A&P Assessment and plan (1) Small bowel obstruction: Status: Acute Assessment and Plan: Status post small bowel resection for foreign bodies Patient with known PICA Doing very well Okay to return to psych facility Has round residual foreign body in the right colon - anticipate this to continue to advance distally Time Spent With Patient Time: Total time managing care of this patient today ____ minutes. Quality Stroke Does the patient have a stroke diagnosis?: No VTE Prior VTE?: No VTE Risk Level:: Surgical - low VTE Device Contraindication: N/A - Device Ordered VTE Drug Contraindication: Treatment Not Indicated
--- NOTE | 2025-01-17 10:29 | PC.NURSE ---
Nursing Report called to Catalina at [facility] [phone] . ETA for transport is 11am
[2025-01-17 11:08] VITALS: BP 112/69; PULSE 77; RESP 20; TEMP 36.5; O2SAT 98
--- NOTE | 2025-01-17 14:26 | P.DS_ITS ---
DS: Providers Provider Date of Service: 01/17/25 Date of admission: 01/11/25 12:29 Date of discharge: 01/17/25 Primary care physician: Artem Hope MD Attending physician on admission: Parminder Madrid Attending physician on discharge: Dioni Samson DS: Diagnosis Discharge Diagnosis (1) Foreign body ingestion: Status: Acute (2) Small bowel obstruction: Status: Acute DS: Summary Hospital Course Hospital Course: HPI AT ADMISSION: Bhargav Herman is a 39 year old male with significant cognitive issues/autism, schizoaffective disorder, OCD and history of PICA, who presents here to the emergency room we will several day history of progressively worsening abdominal pain. He thinks he ate something a few days ago but is unclear. Patient is unable to give a reliable history. Patient's symptoms are of mid abdominal pain which she thinks is getting worse. Denies any nausea, vomiting. Had bowel movement yesterday. He went on to have KUB followed by CT scan demonstrating findings of SBO and concern for a small-bowel volvulus. Patient also has metallic objects which have been in there from prior ingestion/PICA episodes in the past. He has never had abdominal surgery before. Chart was reviewed and patient evaluated. Patient was mother also called for a collateral history. HOSPITAL COURSE: The patient was admitted to the surgical service for further treatment. Because of the unreliability of history as well as exam and very concerning KUB and CT scan findings it was recommended to proceed with exploratory laparotomy and correcting any issues resulting in the CT scan findings of small-bowel volvulus. On 01/11/25, exploratory laparotomy, enterolysis, enterectomy was performed by Dr. Madrid without immediate complication. The patient tolerated the procedure well. He was found to have a knuckle of mid small bowel which was twisted on its anti- mesenteric border to an adhesion in the pelvis with a proximally impacted large metallic type foreign body which could not be milked distally and it was therefore resected along with the perforated segment. He had an uncomplicated but slow recovery course. Home meds were resumed. He r emained inpatient until he had good GI function. His activity was increased. He was kept on clear liquids until this point, POD #5, when he started to pass bowel movements and his abdomen became less distended. He was advanced to a solid diet. He was started on PPN for nutrition in that interm. On the day of discharge, he was tolerating a solid diet without nausea or vomiting, had minimal incisional pain, had good GI function. He was ambulating without difficulty. He was hemodynamically stable. His abdomen was softly distended with a clean incision and minimal tenderness. He was discharged to his facility on 01/17/25. He is to follow up in the office in 1 week. Of note, he had a f/u KUB post operatively which showed a round foreign body that was in the right colon already and deemed likely to pass on its own with time. The patient continues to do well today, January 17. He is scheduled to return to the psych facility today. Status at Discharge Functional status at discharge: independent ambulation Overall status at discharge: patient is progressing back to baseline Time Attestation Discharge Coordination Time (in mins): 40 Quality: Safe Use of Opioids Does Pt have an Active Cancer Diagnosis on the Problem List?: No Quality: Stroke Does the patient have a stroke diagnosis?: No Physical Exam Vital Signs: Vital Signs: Last Vital Signs Temp 98.4 F 01/16/25 11:19 Pulse 77 01/16/25 11:19 Resp 16 01/16/25 11:19 BP 130/71 01/16/25 11:19 Pulse Ox 95 01/16/25 11:19 O2 Del Method Room Air 01/16/25 11:19 O2 Flow Rate 2 01/12/25 03:05 BMI result Body Mass Index 25.5 Const: General: comfortable, no acute distress and alert Resp: Effort & Inspection: normal respiratory effort GI: Inspection: Yes distended (mild ) and Yes incision (clean) Palpation (GI): Soft to palpation, Tenderness to palpation present (GI) (mild incisional ) and no guarding Skin: General skin exam: no rashes or lesions noted Neuro: General: moves all extremities DS: Data Data Completed and Pending Completed studies during hospitalization [Text1]: 01/11/25 14:48 Surgical [PTH] Routine Small bowel, mid, segmental resection: -Ischemic enteritis with perforation, serositis, adhesions, and metallic foreign bodies, compatible with volvulus and effect of foreign body. Comment: The margin closest to the foreign bodies has a markedly attenuated wall, with edema, hemorrhage and mildly inflamed mucosa; viability is uncertain. The other margin appears viable Labs on day of discharge: Laboratory Results - last 24 hr 01/15/25 01/15/25 01/16/25 16:13 20:26 05:56 Hold Purple Top SEE NOTE Sodium 138 Potassium 4.0 Chloride 109 H Carbon Dioxide 23 Anion Gap 10 L BUN 11 Creatinine 0.76 Estim Creat Clear Calc 122.0 Estimated GFR > 60 POC Glucose 77 77 Calcium 8.2 L Phosphorus 2.5 L Magnesium 2.2 Albumin 3.0 L 01/16/25 01/16/25 07:17 11:25 Hold Purple Top Sodium Potassium Chloride Carbon Dioxide Anion Gap BUN Creatinine Estim Creat Clear Calc Estimated GFR POC Glucose 93 112 Calcium Phosphorus Magnesium Albumin Discharge Plan Discharge Anticipated Discharge Date/Time: 01/17/25 14:22 Patient Disposition: Xfer Other Discharge Diagnosis: s/p ex lap, SBO, foreign body ingestion Referrals: [facility] [Outside] Artem Hope MD [Primary Care Provider] - 1 Week Parminder Madrid MD [Physician] - 1 Week Discharge Medications: Continued acetaminophen 325 mg Tablet 650 mg PO Q6H PRN (Reason: Pain (Scale Score 1-3)) trazodone 50 mg Tablet 50 mg PO BEDTIME trazodone 50 mg Tablet 50 mg PO DAILY PRN (Reason: Agitation) diphenhydramine HCl 50 mg Tablet 50 mg PO Q6H PRN (Reason: Anxiety) chlorpromazine 100 mg Tablet 200 mg PO BID PRN (Reason: Agitation) clonazepam 1 mg Tablet 1 mg PO DAILY Rx Instructions: CRUSH AND MIX WITH APPLESAUCE miconazole nitrate 2 % Powder 1 appl TOPICAL DAILY benztropine 1 mg Tablet 1 mg PO BID bismuth subsalicylate [Pepto-Bismol] 262 mg Tablet,Chewable 2 tab PO Q4H PRN (Reason: Indigestion) Rx Instructions: do not exceed 16 tabs per 24 hrs zolpidem 5 mg Tablet 5 mg PO BEDTIME alum-mag hydroxide-simeth 200-200-20 mg/5 mL Suspension 30 ml PO QID PRN (Reason: Dyspepsia) Rx Instructions: administer between meals and at bedtime polyethylene glycol 3350 [Miralax] 17 gram/dose Powder 17 g PO Q2D fluoxetine 20 mg Capsule 60 mg PO DAILY chlorpromazine 50 mg Tablet 50 mg PO TID benzocaine-menthol 6-10 mg Lozenge 1 abdias MUCOUS MEMBRANE Q2H PRN (Reason: Sore Throat) Aristada 662 mg/2.4 mL Suspension,Extended Rel Syring 662 mg IM Q4W Rx Instructions: last dose =12/16/24 , NEXT DOSE DUE 01/13/25 Discharge Orders: Discharge Order (Routine); Ordered 01/17/25 Ordered By: Parminder Madrid Diet: Advance to usual diet Activity on Discharge: No heavy lifting Stand Alone Forms: Patient Portal Discharge page Print Language: Cymro Activity Restrictions/Additional Instructions: Apply an ice pack for short intervals (20 minutes on, followed by at least 20 minutes off) for the first 2 days. Do not apply heat. Do not use creams, lotions, or topical antibiotics. These can cause infection or allergic reaction. Ok to shower. You have steri strips (small white cloth strips) covering your incision- these will fall off ~1 week. Follow up in office with Dr. Madrid in 1 week. ([phone]) No heavy lifting (>10lbs) or strenuous activity! Call Your Doctor If: -Your temperature exceeds 101.5? F -You experience excessive pain or swelling -You have an unexpected reaction to medication -You have excessive bleeding -You experience continued vomiting/nausea -Your incision begins to separate -Your incision shows signs of infection such as increased redness, swelling, excessive pain, drainage (light blood or clear fluid is normal) or heat Care Plan Goals: Return to baseline health and resume normal activities following recovery period. Health Concerns: SBO, foreign body ingestion Plan of Treatment: s/p ex laparotomy, small bowel resection f/u in office in 1 week Assessment: Doing well post op. Discharge Date/Time: 01/17/25 11:11
== END 2025-01-17 11:11 | disposition other institution (70) | DRG 329 ==
LOC: HO.ED 12:07 → HO.SSS 12:27 → HO.SSSA 12:37 → HO.S3 14:12
PROVIDERS: Physician Assistant Surgical; Registered Nurse Emergency; Admitting Provider Surgery; Emergency Provider Emergency Medicine; PCP Internal Medicine; Visit Provider Surgery
PROC: 0DB80ZZ Excision of Small Intestine, Open Approach (ICD-10-PCS; CPT 49000; principal; 2025-01-11 13:30)
DX: T18.3XXA Foreign body in small intestine, initial encounter (principal); K56.2 Volvulus; F84.0 Autistic disorder; F25.9 Schizoaffective disorder, unspecified; F50.83 Pica in adults; Z68.23 Body mass index [BMI] 23.0-23.9, adult; W44.8XXA Other foreign body entering into or through a natural orifice, initial encounter; F42.9 Obsessive-compulsive disorder, unspecified; Z79.899 Other long term (current) drug therapy
CPT/HCPCS: 36415; 74018; 74177; 80048; 80051; 80053; 81003; 82040; 82310; 82565; 82947; 83690; 83735; 84100; 84478; 84520; 85025; 85027; 85610; 88307; 99285; J0131; J0330; J0690; J1100; J1171; J1885; J2003; J2060; J2405; J2704; J2795; J3010; J7120; Q9967

== ENCOUNTER → 2025-01-11 07:25 | Outpatient (BNV) | payer OTHER, SELFPAY | PROVIDERS: Emergency Provider Emergency Medicine; PCP Internal Medicine; Visit Provider Radiology Diagnostic Radiology | DX: R10.31 Right lower quadrant pain (principal) | CPT/HCPCS: 74177 ==

== ENCOUNTER 2025-01-11 12:29 | Outpatient (BNV) | payer OTHER, SELFPAY | END 2025-01-12 15:45 | PROVIDERS: Admitting Provider Surgery; Emergency Provider Emergency Medicine; PCP Internal Medicine; Visit Provider Radiology Diagnostic Radiology | DX: K56.609 Unspecified intestinal obstruction, unspecified as to partial versus complete obstruction (principal); T18.9XXA Foreign body of alimentary tract, part unspecified, initial encounter | CPT/HCPCS: 74018 ==

== ENCOUNTER → 2025-01-11 12:29 | Outpatient (BNV) | payer OTHER, SELFPAY | PROVIDERS: Admitting Provider Surgery; Emergency Provider Emergency Medicine; PCP Internal Medicine; Visit Provider Surgery | DX: K56.609 Unspecified intestinal obstruction, unspecified as to partial versus complete obstruction (principal) | CPT/HCPCS: 44120; 99024; 99222; 99499 ==

== ENCOUNTER 2025-01-23 14:05 | Emergency (ER) | payer OTHER, SELFPAY ==
--- NOTE | ~2025-01-23 | CT_ITS ---
CLINICAL HISTORY: pain, distended abdomen, recent surgery CT abdomen and pelvis with contrast Comparison: CT/SR - CT ABDOMEN PELVIS W IV CON - 01/11/25 08:37 EST Findings: Motion and streak artifact limit evaluation. Atelectasis. The gallbladder and solid organs are within normal limits. No renal stones. Interval postsurgical abdominal wall changes related to partial bowel resection and removal of foreign bodies with an anastomosis in the right abdomen. There is mildly distended diffuse loops of small bowel with air-fluid levels example in the right abdomen near the anastomosis, measuring 4 cm with gradual decompression suspected in the low midline pelvis. Findings favor postoperative ileus rather than high-grade obstruction at this time. Oval-shaped fluid collection along the midline rectus sheath measuring up to 11.6 cm in craniocaudal dimension at midline presumably an abdominal wall seroma or liquified hematoma. Abscess not entirely excluded either, should be correlated clinically. Large colonic stool burden more so proximally. Fat containing inguinal hernias. No acute fracture. IMPRESSION: 1. Interval postoperative changes related to partial bowel resection and removal of foreign bodies. 2. Suspect postoperative small bowel ileus. Attention on follow-up. 3. Fluid collection along the midline rectus sheath differentials discussed above. This document has been electronically signed by: Harlan Donato MD on 01/23/2025 19:56:06
[2025-01-23 14:24] VITALS: BP 136/83; PULSE 81; RESP 12; TEMP 36.4; O2SAT 98; BMI 21.4
[2025-01-23 15:14] LABS: MANUAL DIFF FLAG NO
[2025-01-23 15:16] LABS: Basophils Percent Auto 0.3 % (0-2); Eosinophils Absolute Auto 0.3 X10*3/uL (0.0-0.4); Eosinophils Percent Auto 2.9 % (0-4); Hematocrit 40.2 % (42.0-52.0); Hemoglobin 13.2 g/dl (14.0-18.0); Imm Gran Abs Auto 0.04 X10*3/uL (0.00-0.03); Imm Gran Pct Auto 0.4 % (0.0-0.4); Lymphocytes Absolute Auto 2.5 X10*3/uL (1.2-4.9); Lymphocytes Percent Auto 28.3 % (20-40); Mean Corpuscular HGB Conc 32.8 g/dl (31.0-36.0); Mean Corpuscular Hemoglobin 30.9 pg (27.0-33.0); Mean Corpuscular Volume 94.1 fL (80.0-98.0); Mean Platelet Volume 8.9 fL (9.4-12.4); Monocytes Absolute Auto 0.6 X10*3/uL (0.1-1.2); Monocytes Percent Auto 6.5 % (2-11); Neutrophils Absolute Auto 5.5 x10*3/uL (2.0-8.3); Neutrophils Percent Auto 61.6 % (45-73); Platelet Count 396 X10*3/uL (160-400); Red Blood Count 4.27 X10*6/uL (4.60-5.80)
--- NOTE | 2025-01-23 15:30 | PC.NURSE ---
Report taken from Lindsay Crawford RN
--- OUTSIDE RECORDS SUMMARY | 2025-01-23 16:52 | XMS_ITS | Clinical Summary ---
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 Role Phone Bhargav Cervantes Primary Care Provider [phone] Social History Tobacco Use Types Packs/Day Years Used Date Smoking Tobacco: Every Day Smokeless Tobacco: Never Alcohol Use Standard Drinks/Week Comments Not Currently 0 (1 standard drink = 0.6 oz pur e alcohol) Sex and Gender Information Value Date Recorded Sex Assigned at Not on file Legal Sex Male 5:27 PM EST Gender Identity Not on file Sexual Orientation Not on file Obstetrics History Last Filed Vital Signs Vital Sign Reading Time Taken Comments Blood Pressure 118/70 12/28/2022 8:15 AM EST Sit ting R Arm Pulse 92 12/28/2022 8:15 AM EST Temperature - - Respiratory Rate - - Oxygen Saturation - - Inhaled Oxygen Concentration - - Weight 56.7 kg (125 lb) 02/19/2023 8:39 AM EDT Height 170.2 cm (5' 7 ) 02/19/2023 8:39 AM EDT Body Mass Index 19.58 02/19/2023 8:39 AM EDT Plan of Treatment Health Maintenance Due Date Last Done Comments DTaP,Tdap,and Td Vaccines (1 - Tdap) 2004 Hepatitis B Vaccines (1 of 3 - 19+ 3-dose series) 2004 Pneumococcal Vaccine: Pediat rics (0 to 5 Years) and At-Risk Patients (6 to 64 Years) (1 of 2 - PCV) 2004 Cholesterol Screening (Lipid Panel) 10/28/2022 Depression Screening 10/28/2022 HIV Screening 10/28/2022 Hepatitis C Screening 10/28/2022 Social Influencers of Health Screening 10/28/2022 COVID-19 Vaccine (1 - 2023-2 5 season) 2024 Influenza Vaccine (#1) 2024 HIB Vaccines Aged Out No longer eligi ble based on patient's age to complete this topic HPV Vaccines Aged Out No longer eligi ble based on patient's age to complete this topic Hepatitis A Vaccines Aged Out No long er eligible based on patient's age to complete this topic IPV Vaccines Aged Out No longer eligi ble based on patient's age to complete this topic MMR Vaccines Aged Out No longer eligi ble based on patient's age to complete this topic Meningococcal ACWY Vaccine Aged Out N o longer eligible based on patient's age to complete this topic Meningococcal B Vacine Aged Out No lo nger eligible based on patient's age to complete this topic RSV Immunization Patients Un mg 20 months Aged Out No longer eligible b ased on patient's age to complete this topic Varicella Vaccines Aged Out No longer eligible based on patient's age to complete this topic Care Teams Ornamental Rail Installer Relationship Specialty Start Date End Date Bhargav Cervantes PA PCP - General 06/06/21
--- NOTE | 2025-01-23 16:54 | PC.NURSE ---
20G to L forearm. Pt. tolerated insertion well. Good blood return.
[2025-01-23 18:20] LABS: Alanine Aminotransferase 6 U/L (0-40); Albumin Level 3.6 g/dL (3.5-5.0); Alkaline Phosphatase 60 U/L (39-117); Anion Gap 13 (12-20); Aspartate Amino Transferase 12 U/L (5-37); Bilirubin Total 0.3 mg/dL (0.0-1.0); Blood Urea Nitrogen 10 mg/dL (9-16); Calcium 9.2 mg/dL (8.4-10.2); Carbon Dioxide 24 mmol/L (22-29); Chloride 107 mmol/L (96-108); Creatinine Clr Calc Pharmacy 121.9; Estimated Glomerular Filt Rate > 60; Glucose Random 94 mg/dL (60-115); Lipase 9 U/L (8-78); Potassium 3.9 mmol/L (3.3-5.1); Sodium 140 mmol/L (135-145)
--- NOTE | 2025-01-23 18:42 | ED.GENADULT ---
HPI - General Adult General Chief complaint: Abdominal Pain Stated complaint: LOW BP,?WOUND INF Time Seen by Provider: 01/23/25 15:47 Source: patient, RN notes reviewed, old records reviewed and other (staff at [place]) Mode of arrival: EMS Limitations: no limitations History of Present Illness ED Provider: Abelardo HPI narrative: 39-year-old male past medical history significant for schizoaffective disorder, autism, PICA who presents for evaluation abdominal distention. The patient was seen here 12 days ago and had a partial bowel resection due to metallic foreign body ingestion He was ultimately discharged back to his facility last week. He presents to the ER today for worsening abdominal distention. The patient has mild abdominal discomfort He has not had any nausea or vomiting. He has been since returned to [place] and has not ingested anything new per reports No fevers or chills Related Data Home Medications ?Medication ?Instructions ?Recorded ?Confirmed acetaminophen 325 mg tablet 650 mg PO Q6H PRN Pain (Scale 01/12/25 01/12/25 Score 1-3) aluminum-mag hydroxide-simethicone 30 ml PO QID PRN Dyspepsia 01/12/25 01/12/25 200 mg-200 mg-20 mg/5 mL oral susp aripiprazole lauroxil 662 mg/2.4 662 mg IM Q4W 01/12/25 01/12/25 mL suspension, ext.rel. IM syringe (Aristada) benzocaine 6 mg-menthol 10 mg 1 abdias mucous membrane Q2H PRN Sore 01/12/25 01/12/25 lozenges Throat benztropine 1 mg tablet 1 mg PO BID 01/12/25 01/12/25 bismuth subsalicylate 262 mg 2 tab PO Q4H PRN Indigestion 01/12/25 01/12/25 chewable tablet (Pepto-Bismol) chlorpromazine 100 mg tablet 200 mg PO BID PRN Agitation 01/12/25 01/12/25 chlorpromazine 50 mg tablet 50 mg PO TID 01/12/25 01/12/25 clonazepam 1 mg tablet 1 mg PO DAILY 01/12/25 01/12/25 diphenhydramine HCl 50 mg tablet 50 mg PO Q6H PRN Anxiety 01/12/25 01/12/25 fluoxetine 20 mg capsule 60 mg PO DAILY 01/12/25 01/12/25 miconazole nitrate 2 % topical 1 appl topical DAILY 01/12/25 01/12/25 powder polyethylene glycol 3350 17 17 g PO Q2D 01/12/25 01/12/25 gram/dose oral powder (Miralax) trazodone 50 mg tablet 50 mg PO BEDTIME 01/12/25 01/12/25 trazodone 50 mg tablet 50 mg PO DAILY PRN Agitation 01/12/25 01/12/25 zolpidem 5 mg tablet 5 mg PO BEDTIME 01/12/25 01/12/25 Previous Rx's ?Medication ?Instructions ?Recorded cephalexin 500 mg capsule 500 mg PO QID #20 caps 01/23/25 Allergies Allergy/AdvReac Type Severity Reaction Status Date / Time No Known Allergies Allergy Verified 01/23/25 14:24 [No Known Allergies*] Review of Systems Constitutional: Constitutional: Denies body ache(s), Denies chills and Denies fatigue Eyes: Eyes: Denies blurry vision ENT: Denies dysphagia, Denies vertigo and Denies dizziness Cardiovascular: Cardiovascular: Denies chest pain and Denies dyspnea Respiratory: Respiratory: Denies cough and Denies dyspnea Gastrointestinal: Gastrointestinal: Reports abdominal pain, Denies constipation, Denies dysphagia, Denies nausea and Denies vomiting Musculoskeletal: Musculoskeletal: Denies back pain Integumentary/Breasts: Skin/Breast: Denies rash Neurologic: Denies vertigo and Denies dizziness Psychiatric: Psychiatric: Denies anxiety Endocrine: Endocrine: Denies fatigue REPLACED BY [facility] Past Medical History Medical History Autism Schizo affective schizophrenia Social History Social History Household Members: Unknown / Unable to assess Alcohol intake: unknown 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: sitter Patient Tobacco Use Status: Tobacco use Unknown Substance Use Type: Marijuana Advance Directives: No Advance Directives Information Provided: No service: No Physical Exam ED Vital Signs: Vital Signs - 24 hr 01/23/25 14:24 Temperature 97.6 F Pulse Rate 81 Respiratory Rate 12 Blood Pressure 136/83 Pulse Oximetry 98 Oxygen Delivery Method Room Air BMI result Body Mass Index 21.4 Const General: healthy appearing, comfortable, no acute distress, alert and awake Nutritional Appearance: well nourished Orientation/consciousness: patient oriented x3 HENMT Head: Yes normocephalic and Yes atraumatic Eyes Eyelids: Yes eyelids normal Conjunctivae: conjunctivae normal Sclerae: sclerae normal Corneas: corneas normal Pupils: Equal, round and reactive pupils present EOM: EOMs intact bilaterally Neck Neck: Yes full ROM Resp Effort & Inspection: normal respiratory effort, able to speak in complete sentences and not labored Cardio Rate: regular rate Rhythm: regular rhythm GI Other: Large midline abdominal incision. There is a small area of induration erythema to the right side of the inferior aspect of the incision. No purulent drainage. He was no wound dehiscence. Abdomen is diffusely distended Palpation (GI): Soft to palpation, not firm, nontender, no guarding and not rigid Skin General skin exam: elasticity normal Neuro General: patient oriented x3 Cranial nerves: Yes Equal, round and reactive pupils present and Yes Bilaterally intact EOM present Cognition (Neuro): normal cognition Extrem Other: Moving all extremities well without any obvious deformities Course Reevaluation(s) Reevaluation #1: Patient's CT scan resulted. He has what appears to be an ileus, a seroma but no other acute findings. I discussed this with General surgery, Dr. Reeyz who feels the patient is stable for discharge. Clinically the patient is not obstructed, no evidence of significant infection. He may have a mild skin infection at the base of the surgical wound. We will treat with a short course of cephalexin. The patient is stable for discharge home Time: 20:32 Medications Administered Discontinued Medications Generic Name Dose Route Start Last Admin Trade Name Freq PRN Reason Stop Dose Admin Iohexol 100 ml 01/23/25 19:13 01/23/25 19:14 Iohexol 350 Mg/Ml 100 Ml Infus..Btl IV 01/23/25 19:14 85 ml ONCE ONE Administration Medical Decision Making Medical Decision Making MDM Narrative: 39-year-old male with past medical history as documented above presents for evaluation abdominal distention. He appears quite comfortable, vital signs are stable in the ER. He has no abdominal pain but is distended on exam. He may have a mild skin infection to the distal aspect of his surgical incision. However given his abdominal distention and recent surgery we will get a CT scan of the abdomen pelvis. This will be done without oral contrast as the patient is known to ingested metallic foreign bodies which could be obscured with oral contrast. Differential Diagnosis Differential Diagnoses: The differential diagnosis associated with the presentation includes Abdominal pain Distention Bowel obstruction PICA Foreign body ingestion Consult Healthcare Provider Management of the patient was discussed with: Varnish Maker Helper (general surgery) Lab Data MDM Lab Attestation statement: I reviewed the patient's lab results. No leukocytosis or significant anemia at the patient's baseline. Normal platelet count. No significant electrolyte abnormalities warranting intervention 01/23/25 15:11 01/23/25 15:11 Labs: Lab Results 01/23/25 Range/Units 15:11 WBC 9.0 (4.8-10.8) X10*3/uL RBC 4.27 L (4.60-5.80) X10*6/uL Hgb 13.2 L (14.0-18.0) g/dl Hct 40.2 L (42.0-52.0) % MCV 94.1 (80.0-98.0) fL MCH 30.9 (27.0-33.0) pg MCHC 32.8 (31.0-36.0) g/dl RDW 12.0 (11.0-16.0) % Plt Count 396 (160-400) X10*3/uL MPV 8.9 L (9.4-12.4) fL Immature Gran % (Auto) 0.4 (0.0-0.4) % Neut % (Auto) 61.6 (45-73) % Lymph % (Auto) 28.3 (20-40) % Troup % (Auto) 6.5 (2-11) % Eos % (Auto) 2.9 (0-4) % Baso % (Auto) 0.3 (0-2) % Lymph # (Auto) 2.5 (1.2-4.9) X10*3/uL Troup # (Auto) 0.6 (0.1-1.2) X10*3/uL Eos # (Auto) 0.3 (0.0-0.4) X10*3/uL Baso # (Auto) 0.0 (0.0-0.2) X10*3/uL Abs Immat Gran (auto) 0.04 H (0.00-0.03) X10*3/uL Absolute Neuts (auto) 5.5 (2.0-8.3) x10*3/uL Absolute Nucleated RBC 0.000 (0.0-0.012) X10*3/uL Nucleated RBC % (auto) 0.0 (0.0-0.2) /100WBC Sodium 140 (135-145) mmol/L Potassium 3.9 (3.3-5.1) mmol/L Chloride 107 (96-108) mmol/L Carbon Dioxide 24 (22-29) mmol/L Anion Gap 13 (12-20) BUN 10 (9-16) mg/dL Creatinine 0.78 (0.5-1.4) mg/dL Estim Creat Clear Calc 121.9 Estimated GFR > 60 Random Glucose 94 (60-115) mg/dL Calcium 9.2 D (8.4-10.2) mg/dL Total Bilirubin 0.3 (0.0-1.0) mg/dL AST 12 (5-37) U/L ALT 6 (0-40) U/L Alkaline Phosphatase 60 (39-117) U/L Total Protein 7.0 (6.5-8.0) g/dL Albumin 3.6 (3.5-5.0) g/dL Lipase 9 (8-78) U/L Independent Interpretation I performed an independent interpretation of an: CT Scan Interpretation: Agree with Radiology interpretation Radiology Impression Discussion of test interpretation with radiology: I have reviewed the radiologist's reading. Radiologist Impression: Findings: Motion and streak artifact limit evaluation. Atelectasis. The gallbladder and solid organs are within normal limits. No renal stones. Interval postsurgical abdominal wall changes related to partial bowel resection and removal of foreign bodies with an anastomosis in the right abdomen. There is mildly distended diffuse loops of small bowel with air-fluid levels example in the right abdomen near the anastomosis, measuring 4 cm with gradual decompression suspected in the low midline pelvis. Findings favor postoperative ileus rather than high-grade obstruction at this time. Oval-shaped fluid collection along the midline rectus sheath measuring up to 11.6 cm in craniocaudal dimension at midline presumably an abdominal wall seroma or liquified hematoma. Abscess not entirely excluded either, should be correlated clinically. Large colonic stool burden more so proximally. Fat containing inguinal hernias. No acute fracture. IMPRESSION: 1. Interval postoperative changes related to partial bowel resection and removal of foreign bodies. 2. Suspect postoperative small bowel ileus. Attention on follow-up. 3. Fluid collection along the midline rectus sheath differentials discussed above. This document has been electronically signed by: Harlan Donato MD on 01/23/2025 19:56:06 Discharge Plan Discharge Clinical Impression: Abdominal distension, Ileus Patient Disposition: Home, Self-Care Instructions: Ileus (ED) Additional Instructions: Your workup in the ER today was reassuring. This includes your blood work as well as your CT scan. You do have what is called an ileus. This is not an obstruction It is important that you follow-up with the general surgery office as an outpatient. Take the cephalexin prescription 4 times a day for the next 5 days Prescriptions: New cephalexin 500 mg capsule 500 mg PO QID Qty: 20 0RF No Action acetaminophen 325 mg Tablet 650 mg PO Q6H PRN (Reason: Pain (Scale Score 1-3)) trazodone 50 mg Tablet 50 mg PO BEDTIME trazodone 50 mg Tablet 50 mg PO DAILY PRN (Reason: Agitation) diphenhydramine HCl 50 mg Tablet 50 mg PO Q6H PRN (Reason: Anxiety) chlorpromazine 100 mg Tablet 200 mg PO BID PRN (Reason: Agitation) clonazepam 1 mg Tablet 1 mg PO DAILY Rx Instructions: CRUSH AND MIX WITH APPLESAUCE miconazole nitrate 2 % Powder 1 appl TOPICAL DAILY benztropine 1 mg Tablet 1 mg PO BID bismuth subsalicylate [Pepto-Bismol] 262 mg Tablet,Chewable 2 tab PO Q4H PRN (Reason: Indigestion) Rx Instructions: do not exceed 16 tabs per 24 hrs zolpidem 5 mg Tablet 5 mg PO BEDTIME alum-mag hydroxide-simeth 200-200-20 mg/5 mL Suspension 30 ml PO QID PRN (Reason: Dyspepsia) Rx Instructions: administer between meals and at bedtime polyethylene glycol 3350 [Miralax] 17 gram/dose Powder 17 g PO Q2D fluoxetine 20 mg Capsule 60 mg PO DAILY chlorpromazine 50 mg Tablet 50 mg PO TID benzocaine-menthol 6-10 mg Lozenge 1 abdias MUCOUS MEMBRANE Q2H PRN (Reason: Sore Throat) Aristada 662 mg/2.4 mL Suspension,Extended Rel Syring 662 mg IM Q4W Rx Instructions: last dose =12/16/24 , NEXT DOSE DUE 01/13/25 Print Language: Japanese
[2025-01-23] MEDS: iohexoL 350 MG/ML 100 ML INFUS..BTL IV (19:14)
[2025-01-23 20:48] VITALS: BP 112/66; PULSE 74; RESP 16; TEMP 36.4; O2SAT 96
[2025-01-23] MEDS: cephALEXin 500 MG CAPSULE PO (20:55)
[2025-01-23 21:40] VITALS: BP 112/66; PULSE 74; RESP 16; TEMP 36.4; O2SAT 96
== END 2025-01-23 21:41 | disposition home or self-care (01) ==
PROVIDERS: Physician Assistant; Emergency Provider Emergency Medicine; PCP Internal Medicine
DX: R14.0 Abdominal distension (gaseous) (principal); K56.7 Ileus, unspecified; F25.9 Schizoaffective disorder, unspecified; R10.2 Pelvic and perineal pain; Z79.899 Other long term (current) drug therapy
CPT/HCPCS: 36415; 74177; 80053; 83690; 85025; 99283; 99284; Q9967

== ENCOUNTER → 2025-01-23 16:29 | Outpatient (BNV) | payer OTHER, SELFPAY | PROVIDERS: Emergency Provider Emergency Medicine; PCP Internal Medicine; Visit Provider Radiology Diagnostic Radiology | DX: R10.9 Unspecified abdominal pain (principal) | CPT/HCPCS: 74177 ==

== ENCOUNTER 2025-02-02 13:08 | Outpatient (AMB) | payer OTHER, SELFPAY ==
--- NOTE | 2025-02-02 13:10 | A.OFFVIS_ITS ---
Intake Visit Reasons: s/p Small-bowel obstruction Intake Note: Patient here s/p Small bowel obstruction. ER discharge on 01-23-25. Cephalexin course. Patient c/o: skin irritation almost clear. Surgery: 01-11-2025. Cutting And Splicing Supervisor Required: No Accompanied by: personal care team Allergies No Known Allergies [No Known Allergies*] Allergy (Verified 02/02/25 13:15) HPI Comments Details: Patient presents from his facility with his take out waiter. He apparently is tolerating his diet. Having regular bowel habits. Collateral history obtained from take out waiter. [facility] Medical History Autism Schizo affective schizophrenia Social History Household Members: Unknown / Unable to assess Alcohol intake: unknown Comment: sitter Patient Tobacco Use Status: Tobacco use Unknown Substance Use Type: Marijuana service: No Physical Exam GI Other: Abdomen is soft incision clean dry and intact healing very well Assessment & Plan Assessment & Plan (1) Status post exploratory laparotomy: Code(s): Z98.890 - Other specified postprocedural states Category: Medical Plan Patient had his take out waiter have been given local instructions. Paperwork filled out. Patient otherwise follow-up p.r.n.. Coding Level of Care Code Global (48622) Diagnoses Status post exploratory laparotomy Z98.890
--- OUTSIDE RECORDS SUMMARY | 2025-02-02 14:49 | XMS_ITS | Clinical Summary ---
Author Organization [facility] [place] Address [address] [place] [address] Care Team Providers Care Supervisor [employer] Duplicating Unit Name Role Phone Bhargav Cervantes Primary Care Provider [phone] Social History Tobacco Use Types Packs/Day Years [...] age to complete this topic Care Teams Supervisor [employer] Duplicating [employer] Relationship Specialty Start Date End Date Bhargav Cervantes PA PCP - General 06/06/21
== END 2025-02-02 13:26 | disposition home or self-care (01) ==
LOC: HO.HGS 13:08
PROVIDERS: PCP Internal Medicine; Visit Provider Surgery
DX: Z98.890 Other specified postprocedural states (principal)
CPT/HCPCS: 99024

== ENCOUNTER → 2025-02-02 13:08 | Outpatient (BNVA) | payer OTHER, SELFPAY | PROVIDERS: PCP Internal Medicine; Visit Provider Surgery | DX: Z09 Encounter for follow-up examination after completed treatment for conditions other than malignant neoplasm (principal); Z98.890 Other specified postprocedural states | CPT/HCPCS: 99212 ==